=== PATIENT | male | born 1955 | race Caucasian/White ===

== ENCOUNTER 2017-05-27 05:53 | Day surgery (SDC) | payer BC, OTHER ==
[2017-05-27 06:25] LABS: HEMATOCRIT 38.9 % (37.9-51.0); HEMOGLOBIN 13.5 g/dL (13.5-17.0); HGB HCT DIFFERENCE 1.6; MEAN CORPUSCULAR HEMOGLOBIN 34.2 pg (27.0-33.4); MEAN CORPUSCULAR HGB CONC 34.7 g/dL (32.0-36.0); MEAN CORPUSCULAR VOLUME 99 fl (80-97); RED BLOOD COUNT 3.94 10^6/uL (4.35-5.55); RED CELL DISTRIBUTION WIDTH 13.8 % (11.5-14.0); WHITE BLOOD COUNT 5.2 10^3/uL (4.0-10.5)
[2017-05-27 06:34] LABS: PROTHROMBIN TIME 12.5 SEC (11.4-15.4)
[2017-05-27 06:35] LABS: PARTIAL THROMBOPLASTIN TIME 35.1 SEC (23.5-35.8)
[2017-05-27 06:37] LABS: BLOOD UREA NITROGEN 10 mg/dL (7-20); CREATININE RESULT 0.83 mg/dL (0.52-1.25)
[2017-05-27] MEDS ORDERED: MIDAZOLAM 2 MG/2 ML INJ ONE (08:13)
[2017-05-27] MEDS ORDERED: FENTANYL CITRATE INJ/PF 100 MCG/2 ML AMPUL ONE (08:14)
--- NOTE | 2017-05-27 09:35 | RADIOLOGY REPORT (SQ) ---
EXAM DESCRIPTION: CT BIOPSY RENAL; CT NEEDLE PLACEMENT COMPLETED DATE/TIME: 05/27/2017 9:10 am REASON FOR STUDY: PROTEINURIA; PROTEINURIA, RENAL BIOPSY R80.9 PROTEINURIA, UNSPECIFIED R31.29 OT ER MICROSCOPIC HEMATURIA COMPARISON: CT chest 01/08/2014 RADIATION DOSE: Up-to-date CT equipment and radiation dose reduction techniques were employed. CTDIv ol: 4.0 - 19.3 mGy. DLP: 502 mGy-cm. mGy. LIMITATIONS: None. PROCEDURE: Procedure was discussed with the patient and the patient agreed to the procedure. Preliminary CT scanning to localize the biopsy site was performed. A site was marked on the right lo wer pole kidney and time out was performed. Procedure was performed using CT fluoroscopy. Total expo sure time: 5.8 s. IV sedation was administered and physician direction by the registered nurse using 2 milligrams of Ve rsed and 100 micrograms of fentanyl. Physiologic monitoring was provided before, during, and after se dation. The total sedation time was 40 minutes. Documentation face to face time, the performing proceduralist, spent monitoring the patient: 20minute s. After sterile skin prep with ChloraPrep, local lidocaine for skin and deep tissue anesthesia, the rig ht lower pole kidney was localized. A coaxial 18 gauge needle was used to obtain 7 cores of tissue fr om the right lower pole kidney. The biopsy tract was embolized with Gelfoam. All CT scanners at this facility use dose modulation, iterative reconstruction, and/or weight based d osing when appropriate to reduce radiation dose to as low as reasonably achievable (ALARA). [facility]: Dose Right [facility]: CareDose [facility]: Dose Right [facility]: Teradose 4D [facility]: [employer] FINDINGS: There were no immediate complications. Specimen was carried to cytology on sterile saline gauze and submitted to the quality assurance supervisor final for processing. Pathology is pending at the time of dict ation. IMPRESSION: CT GUIDED RIGHT KIDNEY CORTICAL BIOPSY. COMMENT: Patient medication list reviewed:Yes- Quality ID# [id number]:Eligible professional attests to docu menting in the medical record they obtained, updated, or reviewed the patient's current medications.. TECHNICAL DOCUMENTATION: JOB ID: [id number] Quality ID #[id number]: Final reports for procedures using fluoroscopy that document radiation exposure julia bety, or exposure time and number of fluorographic images (if radiation exposure indices are not avail able) Quality ID # [id number]: Final reports with documentation of one or more dose reduction techniques (e.g., Au tomated exposure control, adjustment of the mA and/or kV according to patient size, use of iterative reconstruction technique) 2010 [employer]- All Rights Reserved
--- NOTE | 2017-05-27 09:35 | RADIOLOGY REPORT (SQ) ---
EXAM DESCRIPTION: CT BIOPSY RENAL; CT NEEDLE PLACEMENT COMPLETED DATE/TIME: 05/27/2017 9:10 am REASON FOR STUDY: PROTEINURIA; PROTEINURIA, RENAL BIOPSY R80.9 PROTEINURIA, UNSPECIFIED R31.29 OT ER MICROSCOPIC HEMATURIA COMPARISON: CT chest 01/08/2014 RADIATION DOSE: Up-to-date CT equipment and radiation dose reduction techniques were employed. CTDIv ol: 4.0 - 19.3 mGy. DLP: 502 mGy-cm. mGy. LIMITATIONS: None. PROCEDURE: Procedure was discussed with the patient and the patient agreed to the procedure. Preliminary CT scanning to localize the biopsy site was performed. A site was marked on the right lo wer pole kidney and time out was performed. Procedure was performed using CT fluoroscopy. Total expo sure time: 5.8 s. IV sedation was administered and physician direction by the registered nurse using 2 milligrams of Ve rsed and 100 micrograms of fentanyl. Physiologic monitoring was provided before, during, and after se dation. The total sedation time was 40 minutes. Documentation face to face time, the performing proceduralist, spent monitoring the patient: 20minute s. After sterile skin prep with ChloraPrep, local lidocaine for skin and deep tissue anesthesia, the rig ht lower pole kidney was localized. A coaxial 18 gauge needle was used to obtain 7 cores of tissue fr om the right lower pole kidney. The biopsy tract was embolized with Gelfoam. All CT scanners at this facility use dose modulation, iterative reconstruction, and/or weight based d osing when appropriate to reduce radiation dose to as low as reasonably achievable (ALARA). [facility]: Dose Right [facility]: CareDose [facility]: Dose Right [facility]: Teradose 4D [facility]: [employer] FINDINGS: There were no immediate complications. Specimen was carried to cytology on sterile saline gauze and submitted to the religion instructor for processing. Pathology is pending at the time of dict ation. IMPRESSION: CT GUIDED RIGHT KIDNEY CORTICAL BIOPSY. COMMENT: Patient medication list reviewed:Yes- Quality ID# [id number]:Eligible professional attests to docu menting in the medical record they obtained, updated, or reviewed the patient's current medications.. TECHNICAL DOCUMENTATION: JOB ID: [id number] Quality ID #[id number]: Final reports for procedures using fluoroscopy that document radiation exposure julia bety, or exposure time and number of fluorographic images (if radiation exposure indices are not avail able) Quality ID # [id number]: Final reports with documentation of one or more dose reduction techniques (e.g., Au tomated exposure control, adjustment of the mA and/or kV according to patient size, use of iterative reconstruction technique) 2010 [employer]- All Rights Reserved
[2017-05-27 11:07] VITALS: BP 118/65
== END 2017-05-27 11:07 | disposition home or self-care (01) ==
LOC: RAD 05:53
PROVIDERS: ATTEND Internal Medicine Nephrology
PROC: 0TB33ZX Excision of Right Kidney Pelvis, Percutaneous Approach, Diagnostic (ICD-10-PCS; principal; 2017-05-27)
DX: I12.9 Hypertensive chronic kidney disease with stage 1 through stage 4 chronic kidney disease, or unspecified chronic kidney disease (principal); N18.9 Chronic kidney disease, unspecified; R80.9 Proteinuria, unspecified; R31.29 Other microscopic hematuria
CPT/HCPCS: 36415; 84520; 82565; 85027; 85610; 85730; 88346; 88348 ×2; 88313 ×2; 77012; 50200; J2250; J3010

== ENCOUNTER → 2017-10-13 | Outpatient (CLI) | payer BC, OTHER ==
--- NOTE | 2017-10-14 09:35 | RADIOLOGY REPORT (SQ) ---
EXAM DESCRIPTION: MRI LUMBAR SPINE WITHOUT COMPLETED DATE/TIME: 10/13/2017 7:33 pm REASON FOR STUDY: RADICULOPATHY, LUMBAR REGION M54.5 LOW BACK PAIN COMPARISON: None. TECHNIQUE: Sagittal and Axial imaging includes T1, T2, STIR and gradient echo sequences. Coronal T2/ HASTE imaging. LIMITATIONS: None. FINDINGS: VISUALIZED UPPER ABDOMEN: Limited evaluation. No acute or suspicious findings suggested. SEGMENTATION: No transitional anatomy. The lowest well-developed disc space is labeled L5-S1. ALIGNMENT: Anatomic. VERTEBRAE: Intact. BONE MARROW: Edematous and fatty reactive endplate changes at L4-5 with disc space loss of height. M inimal fatty endplate changes at T12-L1 and L2-3. No marrow signal abnormalities worrisome for occul t malignancy or fracture DISC SIGNAL: Decreased T2 weighted intervertebral disc signal at L2-3 and L5-S1. Decreased T2 weight ed intervertebral disc signal with disc space loss of height at L3-4 and L4-5. POSTERIOR ELEMENTS: Generally intact. No pars defect evident. HARDWARE: None in the spine. CORD AND CONUS: Normal in size and signal intensity. Conus at the T12 level. SOFT TISSUES: No aortic aneurysm seen. No bulky retroperitoneal adenopathy or mass. No paraspinal mas s or fluid. T11-12: Minimal diffuse posterior disc bulging. Minimal facet hypertrophy. No central or foraminal stenosis. T12-L1: No central or foraminal stenosis L1-L2: No central or foraminal stenosis. Very mild bilateral facet hypertrophy. L2-L3: Mild to moderate central canal stenosis results from broad diffuse posterior disc bulge and gabino ny spurring, dorsal epidural fat, and moderate bilateral facet and ligament hypertrophy. This is bes t shown on axial T2 image 12 and sagittal T2 image 8. There is mild bilateral inferior foraminal shantal rowing at L2-3 without exiting L2 nerve root impingement. L3-L4: Mild central canal narrowing results from broad diffuse posterior disc bulge and bony spurring , and moderate bilateral facet and ligament hypertrophy. Mild bilateral inferior foraminal narrowing is present without definite exiting L3 nerve root impingement L4-L5: Mild central canal narrowing results from broad diffuse posterior disc bulge and bony spurring , with moderate bilateral facet and ligament hypertrophy. There is moderate right foraminal narrowin g without definite exiting L4 nerve root impingement. Moderate left foraminal narrowing is present f rom facet and uncovertebral hypertrophy and a 9 to 10 mm synovial cyst protruding off the left L4-5 f acet joint, best shown on coronal image 12, axial image 23, and sagittal image 10. This abuts the un dersurface of the left L4 nerve root in the foramen without definite exiting nerve root impingement. L5-S1: Broad diffuse posterior disc bulge and moderate bilateral facet and ligament hypertrophy. No central stenosis or significant right foraminal narrowing. 8 mm synovial cyst protrudes off the vent ral aspect of the left L5-S1 facet, and abuts the dorsal aspect of the left L5 nerve root in the neur al foramina without definite exiting nerve root impingement. This is best shown on axial T1 image 18 SACRUM: Visualized upper sacrum intact. OTHER: No other significant findings. IMPRESSION: Diffuse degenerative changes as above TECHNICAL DOCUMENTATION: JOB ID: [id number] [employer]- All Rights Reserved
== END ==
LOC: RAD 18:24
PROVIDERS: ATTEND Pain Medicine Interventional Pain Medicine
DX: M54.16 Radiculopathy, lumbar region (principal); M51.36 Other intervertebral disc degeneration, lumbar region
CPT/HCPCS: 72148

== ENCOUNTER 2019-12-21 12:38 | Day surgery (SDC) | payer BC, OTHER ==
[2019-12-18 11:51] LABS: ABSOLUTE BASOPHILS # (AUTO) 0.1 10^3/uL (0.0-0.2); ABSOLUTE EOSINOPHILS # (AUTO) 0.3 10^3/uL (0.0-0.6); ABSOLUTE LYMPHOCYTES (AUTO) 0.8 10^3/uL (0.5-4.7); ABSOLUTE MONOCYTES (AUTO) 0.7 10^3/uL (0.1-1.4); ABSOLUTE NEUT (AUTO) 3.5 10^3/uL (1.7-8.2); BASOPHILS % (AUTO) 1.4 % (0-2); EOSINOPHILS % (AUTO) 5.5 % (0-6); HEMATOCRIT 34.4 % (37.9-51.0); HEMOGLOBIN 11.7 g/dL (13.5-17.0); LYMPHOCYTES % (AUTO) 14.9 % (13-45); MEAN CORPUSCULAR HGB CONC 34.1 g/dL (32.0-36.0); MEAN CORPUSCULAR VOLUME 106 fl (80-97); MONOCYTES % (AUTO) 13.5 % (3-13); PLATELET COUNT 260 10^3/uL (150-450); RED BLOOD COUNT 3.25 10^6/uL (4.35-5.55); SEGMENTED NEUTROPHILS % (AUTO) 64.7 % (42-78); TOTAL CELLS COUNTED % (AUTO) 100 %; WHITE BLOOD COUNT 5.4 10^3/uL (4.0-10.5)
[2019-12-18 11:59] LABS: ANION GAP 11 (5-19); BLOOD UREA NITROGEN 12 mg/dL (7-20); CALCIUM 9.8 mg/dL (8.4-10.2); CARBON DIOXIDE 30 mmol/L (22-30); CHLORIDE 92 mmol/L (98-107); GLUCOSE 78 mg/dL (75-110); POTASSIUM 4.6 mmol/L (3.6-5.0)
--- NOTE | 2019-12-18 18:14 | EKG REPORT ---
SEVERITY:- BORDERLINE ECG - SINUS RHYTHM BORDERLINE T ABNORMALITIES, ANT-LAT LEADS : Confirmed by: An Keller MD 18-Dec-2019 18:13:11
[~2019-12-21 12:38] MED LIST: ACETAMINOPHEN 325 MG TABLET PO PRN; CEFAZOLIN SODIUM 2 GM in DEXTROSE 5%-WATER 100 ML IV PRN; DEXAMETHASONE SOD PHOSPHATE INJ 4 MG/1 ML VIAL ONE; FENTANYL CITRATE INJ/PF 100 MCG/2 ML AMPUL ONE; LACTATED RINGERS 1000 ML IV PRN; LIDOCAINE 0.5% INJ-PF (5 MG/ML) 50 ML SDV SUBCUT PRN; MIDAZOLAM 2 MG/2 ML INJ ONE; ONDANSETRON HCL INJ/PF 4 MG/2 ML SDV ONE; OXYCODONE HCL SR 10 MG TABLET PO PRN; PROPOFOL INJ 200 MG/20 ML VIAL IV ONE
[2019-12-21] MEDS ORDERED: OXYCODONE HCL SR 10 MG TABLET PO ONE (13:31)
[2019-12-21] MEDS ORDERED: ACETAMINOPHEN 325 MG TABLET ONE (13:31)
[2019-12-21] MEDS ORDERED: ALBUTEROL SULFATE 0.083% NEB 2.5 MG/3 ML AMPUL NEB ONE (13:49)
[2019-12-21] MEDS ORDERED: PROPOFOL INJ 200 MG/20 ML VIAL IV ONE ×3 (15:50→16:46)
[2019-12-21] MEDS ORDERED: BUPIVACAINE HCL 0.5%-EPI 1:200000 INJ/PF 30 ML VIAL ONE (16:11)
[2019-12-21] MEDS ORDERED: BUPIVACAINE HCL 0.5 % INJ/PF 30 ML SDV ONE (16:11)
[2019-12-21] MEDS ORDERED: LIDOCAINE 1% INJ-PF (10 MG/ML) 30 ML SDV ONE (16:11)
[2019-12-21] MEDS ORDERED: KETOROLAC TROMETHAMINE INJ/PF 30 MG/1 ML SDV ONE (16:11)
[2019-12-21] MEDS ORDERED: LIDOCAINE 1%/EPINEPHRINE INJ 20 ML VIAL ONE (16:11)
[2019-12-21] MEDS ORDERED: FENTANYL CITRATE INJ/PF 100 MCG/2 ML AMPUL IV PRN ×3 (16:15)
[2019-12-21] MEDS ORDERED: MEPERIDINE HCL/PF INJ 25 MG/1 ML DISP.SYRIN IV PRN (16:15)
[2019-12-21] MEDS ORDERED: ONDANSETRON HCL INJ/PF 4 MG/2 ML SDV IV PRN (16:15)
[2019-12-21] MEDS ORDERED: MORPHINE SULFATE 10 MG/ML INJ IV PRN (16:15)
[2019-12-21] MEDS ORDERED: DIPHENHYDRAMINE HCL 50 MG/ML VIAL IV PRN (16:15)
--- NOTE | 2019-12-21 17:53 | Operative Report ---
Operative Report DATE OF SURGERY: 12/21/19 PREOPERATIVE DIAGNOSIS: Left elbow chronic bursitis POSTOPERATIVE DIAGNOSIS: Left elbow chronic bursitis OPERATION: Resection left elbow bursa SURGEON: TAMI HWANG JR ANESTHESIA: LMAC COMPLICATIONS: None ESTIMATED BLOOD LOSS: Minimal PROCEDURE: The patient was brought to the operating suite and laid lateral on a beanbag. He was provided LMAC anesthesia and was given 2 g of Ancef. The left upper extremity was draped over a paint roller type positioner. After adequate anesthesia the left upper extremity was prepped and draped in standard sterile fashion. A timeout was performed and the skin was marked. Local anesthetic was provided. An incision was made deviating slightly radially over the enlarged bursal sac. Following this the layer between the dermis and the bursal sac was carefully developed and followed ulnarly. This plane was worked in all directions until we achieved complete resection of the bursa. It was full of serous fluid. The bursa was sent for pathology. The wound was copiously irrigated. We then took a barbed 3-0 Monocryl suture and began carefully and pr ogressively in running fashion sewing down the space between the skin and the underlying fascia. This was done [id number] until the space was entirely closed. Following this the Monocryl was utilized to close the subcutaneous tissue in a running fashion. We then utilized a running locked external stitch in the skin with a 3-0 nylon suture. Further local anesthetic was provided. We then applied a compressive dressing to the wound. Patient was then awakened from anesthesia and transferred to PACU in stable condition
[2019-12-21 18:54] VITALS: BP 157/90
== END 2019-12-21 18:44 | disposition home or self-care (01) ==
LOC: OROUT 12:38
PROVIDERS: ATTEND Orthopaedic Surgery
DX: M70.22 Olecranon bursitis, left elbow (principal); N08 Glomerular disorders in diseases classified elsewhere; J45.909 Unspecified asthma, uncomplicated; I12.9 Hypertensive chronic kidney disease with stage 1 through stage 4 chronic kidney disease, or unspecified chronic kidney disease; D63.1 Anemia in chronic kidney disease; N18.1 Chronic kidney disease, stage 1; Z87.891 Personal history of nicotine dependence; Z79.899 Other long term (current) drug therapy; Z79.51 Long term (current) use of inhaled steroids; Z88.8 Allergy status to other drugs, medicaments and biological substances
CPT/HCPCS: 93005; 36415 ×2; 84132; 85025; 80048; 88304 ×2; 93010; 01710; 24105; J2250; J3490 ×2; J0690; J1100; J3010; J1885; J2405; J7060; J2704; 1710

== ENCOUNTER 2020-04-25 05:30 | Inpatient (IN) | payer OTHER ==
[2020-04-23 11:19] LABS: HEMATOCRIT 34.2 % (37.9-51.0); HEMOGLOBIN 11.7 g/dL (13.5-17.0); MEAN CORPUSCULAR HEMOGLOBIN 34.6 pg (27.0-33.4); MEAN CORPUSCULAR HGB CONC 34.2 g/dL (32.0-36.0); MEAN CORPUSCULAR VOLUME 101 fl (80-97); PLATELET COUNT 224 10^3/uL (150-450); RED BLOOD COUNT 3.38 10^6/uL (4.35-5.55); RED CELL DISTRIBUTION WIDTH 14.3 % (11.5-14.0); WHITE BLOOD COUNT 4.8 10^3/uL (4.0-10.5)
[2020-04-23 11:39] LABS: ANION GAP 13 (5-19); BLOOD UREA NITROGEN 10 mg/dL (7-20); CALCIUM 10.1 mg/dL (8.4-10.2); CARBON DIOXIDE 26 mmol/L (22-30); CHLORIDE 89 mmol/L (98-107); GLUCOSE 104 mg/dL (75-110); POTASSIUM 4.6 mmol/L (3.6-5.0)
--- NOTE | 2020-04-23 14:43 | EKG REPORT ---
SEVERITY:- NORMAL ECG - SINUS RHYTHM : Confirmed by: An Keller MD 23-Apr-2020 14:43:02
[~2020-04-25 05:30] MED LIST changes: +CEFAZOLIN 2 GM/D5W RTU 2 GM/50 ML RTUPB IV PRN; -CEFAZOLIN SODIUM 2 GM in DEXTROSE 5%-WATER 100 ML IV PRN; +CELECOXIB 200 MG CAPSULE PO PRN; -DEXAMETHASONE SOD PHOSPHATE INJ 4 MG/1 ML VIAL ONE; -FENTANYL CITRATE INJ/PF 100 MCG/2 ML AMPUL ONE; +GABAPENTIN 100 MG CAPSULE PO PRN; -MIDAZOLAM 2 MG/2 ML INJ ONE; +ONDANSETRON HCL INJ/PF 4 MG/2 ML SDV IV PRN; -ONDANSETRON HCL INJ/PF 4 MG/2 ML SDV ONE; -PROPOFOL INJ 200 MG/20 ML VIAL IV ONE; +SCOPOLAMINE HYDROBROMIDE 1.5 MG PATCH.TD72 TD PRN; +TRAMADOL HCL 50 MG TABLET PO PRN; +TRANEXAMIC ACID INJ/PF 1,000 MG/10 ML SDV IV PRN; +VANCOMYCIN HCL 1,000 MG in DEXTROSE 5%-WATER 250 ML IV PRN
[2020-04-25] MEDS ORDERED: TRAMADOL HCL 50 MG TABLET ONE (06:31)
[2020-04-25] MEDS ORDERED: OXYCODONE HCL SR 10 MG TABLET PO ONE (06:31)
[2020-04-25] MEDS ORDERED: CEFAZOLIN 2 GM/D5W RTU 2 GM/50 ML RTUPB IV ONE (06:31)
[2020-04-25] MEDS ORDERED: GABAPENTIN 100 MG CAPSULE ONE (06:31)
[2020-04-25] MEDS ORDERED: CELECOXIB 200 MG CAPSULE ONE (06:31)
[2020-04-25] MEDS ORDERED: SCOPOLAMINE HYDROBROMIDE 1.5 MG PATCH.TD72 ONE (06:31)
[2020-04-25] MEDS ORDERED: ONDANSETRON HCL INJ/PF 4 MG/2 ML SDV ONE ×2 (06:31→07:14)
[2020-04-25] MEDS ORDERED: ACETAMINOPHEN 325 MG TABLET ONE (06:34)
[2020-04-25] MEDS ORDERED: BUPIVACAINE HCL 0.5%-EPI 1:200000 INJ/PF 30 ML VIAL ONE (07:07)
[2020-04-25] MEDS ORDERED: LIDOCAINE 1% INJ-PF (10 MG/ML) 30 ML SDV ONE (07:13)
[2020-04-25] MEDS ORDERED: BUPIVACAINE HCL 0.25 % INJ/PF (2.5 MG/1 ML) 30 ML VIAL ONE (07:13)
[2020-04-25] MEDS ORDERED: VANCOMYCIN HCL INJ 1000 MG VIAL ONE (07:13)
[2020-04-25] MEDS ORDERED: KETOROLAC TROMETHAMINE INJ/PF 30 MG/1 ML SDV ONE (07:14)
[2020-04-25] MEDS ORDERED: DEXAMETHASONE SOD PHOSPHATE INJ 4 MG/1 ML VIAL ONE (07:14)
[2020-04-25] MEDS ORDERED: FENTANYL CITRATE INJ/PF 100 MCG/2 ML AMPUL ONE (07:14)
[2020-04-25] MEDS ORDERED: MIDAZOLAM 2 MG/2 ML INJ ONE (07:14)
[2020-04-25] MEDS ORDERED: TRANEXAMIC ACID INJ/PF 1,000 MG/10 ML SDV ONE (07:14)
[2020-04-25] MEDS ORDERED: PROPOFOL INJ 200 MG/20 ML VIAL IV ONE (07:15)
[2020-04-25] MEDS ORDERED: MORPHINE SULFATE 10 MG/ML INJ ONE (07:15)
[2020-04-25] MEDS ORDERED: EPINEPHRINE INJ/PF 1 MG/1 ML AMPULE ONE (07:39)
[2020-04-25] MEDS ORDERED: MORPHINE SULFATE 10 MG/ML INJ IV PRN (08:46)
[2020-04-25] MEDS ORDERED: FENTANYL CITRATE INJ/PF 100 MCG/2 ML AMPUL IV PRN ×3 (08:46)
[2020-04-25] MEDS ORDERED: PROMETHAZINE HCL INJ 25 MG/1 ML VIAL IV PRN ×2 (08:46)
[2020-04-25] MEDS ORDERED: DIPHENHYDRAMINE HCL 50 MG/ML VIAL IV PRN (08:46)
[2020-04-25] MEDS: FENTANYL CITRATE INJ/PF 100 MCG/2 ML AMPUL ONE ×2 (10:00→10:10)
--- NOTE | 2020-04-25 10:14 | Operative Report ---
Operative Report DATE OF SURGERY: 04/25/20 PREOPERATIVE DIAGNOSIS: Left knee primary osteoarthritis, end-stage POSTOPERATIVE DIAGNOSIS: Left knee primary osteoarthritis, end-stage OPERATION: Left total knee arthroplasty SURGEON: EMIGDIO HWANG JR ANESTHESIA: GA COMPLICATIONS: None ESTIMATED BLOOD LOSS: 10 cc PROCEDURE: Components: Derrek triathlon total knee: #5 PS femur, 5 x 9 tibia, and a 35 asymmetric patella OPERATIVE PROCEDURE: Patient was brought to the operating room and spinal anesthesia was administered. After proper anesthesia was obtained, patient was positioned, padded, prepped, and draped in the usual sterile fashion on the operating room table. 2 grams of Ancef and 1 g of vancomycin were given. Appropriate time out was performed. Anterior incision and medial-parapatella approach was performed. Severe degenerative arthritis was noted. Osteophytes were removed from the femur and tibia, and the remainder of the ACL and PCL were removed. The proximal tibia was then prepared and cut perpendicular to the tibial shaft axis and measured to a 5 tibia. The distal femur was drilled, the canal was irrigated and the distal femoral guide was placed. The distal femur was cut 12 mm to 5 degrees of varus. An extension 10 block was placed in the gap was found to be inadequate. We then returned to the tibia and took 2 more millimeters off of the tibia. Recheck with a gap block found this to have adequate extension. The tensor was placed in extension and the extension gap was balanced with releases until the goniometer on the tensor measured to 0. This required a IT band release to the level of the tibial plateau. The tensor was placed in flexion and the femur was sized to 5. Drill holes were placed to the appropriate femoral rotation. The 4 and 1 block was placed and the flexion gap was then re-checked with the tensor adapter and found to be appropriate. Anterior-posterior and chamfer cuts were made. Posterior osteophytes were removed. The femoral trial was then placed, and the notch was cut. The combination of the tibial baseplate and the 9 mm polyethylene liner were then placed and the knee was taken through a range of motion with the trials in. This had excellent balance in extension and flexion as well as patellar tracking. The patella AP aspect was measured to 24 mm and t he patella was cut parallel to the anterior patella surface. A 32 mm button was placed medially and superiorly as possible and the patella-button construct again measured 24 mm. This was again taken through a range of motion and found to have excellent balance, stability and ease of full motion. The rotation of the tibial baseplate was marked, the tibial was anteriorly subluxed and the tibial component was pinned and drilled and punched. All the trials were then removed and the wound was copiously irrigated with sterile saline followed by a Betadine soak. After pulsatile irrigation of the maría elena and soft tissue surfaces, the maría elena surfaces were cleaned and dried, and cementation of the femur, tibia, and patella was performed. All excess cement was thoroughly removed. The knee was placed in slight flexion until cement was hard. Periarticular injection with Lidocaine, Marcaine and Toradol was performed. The knee was irrigated copiously. A gram of Vancomycin was placed intra-articularly. The extensor mechanism was closed with 0 vicryl tacking sutures and number 2 Stratofix. The subcutaneous tissue was closed with 2-0 monocryl and the skin closed with 3-0 running monocryl. A silver dressing was applied. All needle sponge and instrument counts were correct. Patient was awakened from sedation anesthesia and taken to recovery room in good condition. Emigdio Hwang DO
[2020-04-25] MEDS ORDERED: (PENDING PHARMACY ID) (Albuterol Sulfate 2 PUFF) IH PRN (10:15)
[2020-04-25] MEDS ORDERED: ONDANSETRON 4 MG TAB.RAPDIS PO PRN ×2 (10:15→10:22)
[2020-04-25] MEDS ORDERED: TRAMADOL HCL 50 MG TABLET PO PRN (10:16)
[2020-04-25] MEDS ORDERED: OXYCODONE HCL IR 5 MG TABLET PO PRN (10:16)
[2020-04-25] MEDS ORDERED: PANTOPRAZOLE SODIUM 20 MG TABLET.DR PO PRN (10:20)
[2020-04-25] MEDS ORDERED: DIPHENHYDRAMINE HCL 25 MG CAPSULE PO PRN (10:20)
[2020-04-25] MEDS: MORPHINE SULFATE 10 MG/ML INJ ONE ×4 (10:20→10:50)
[2020-04-25] MEDS ORDERED: DOCUSATE SODIUM 100 MG CAPSULE PO PRN (10:21)
[2020-04-25] MEDS ORDERED: ZOLPIDEM TARTRATE 5 MG TABLET PO PRN (10:21)
[2020-04-25] MEDS ORDERED: NORMAL SALINE 1000 ML 1,000 ML IV PRN (10:30)
[2020-04-25] MEDS ORDERED: ACETAMINOPHEN 1,000 MG/100 ML RTUPB IV ONE (10:31)
--- NOTE | 2020-04-25 11:03 | RADIOLOGY REPORT (SQ) ---
EXAM DESCRIPTION: KNEE LEFT 2 VIEWS IMAGES COMPLETED DATE/TIME: 04/25/2020 10:35 am REASON FOR STUDY: POST OP M17.12 UNILATERAL PRIMARY OSTEOARTHRITIS, LEFT KNEE COMPARISON: 12/27/2019 NUMBER OF VIEWS: Two views. TECHNIQUE: AP and lateral radiographic images acquired of the left knee. LIMITATIONS: None. FINDINGS: MINERALIZATION: Normal. BONES: The patient is status post total knee arthroplasty. No osseous injury. JOINT: Gas and fluid are seen within the joint space. SOFT TISSUES: Subcutaneous gas is seen anteriorly. Atherosclerotic vascular calcifications are demon strated. OTHER: No other significant finding. IMPRESSION: Status post total knee arthroplasty. Intraarticular and subcutaneous gas are not an une xpected finding in the immediate postoperative setting. No evidence of osseous injury. TECHNICAL DOCUMENTATION: JOB ID: [id number] 2010 [employer]- All Rights Reserved Reading location - IP/workstation name: [email or web address]
[2020-04-25] MEDS ORDERED: IBUPROFEN 800 MG in NORMAL SALINE 250 ML IV ONE (11:15)
[2020-04-25] MEDS ORDERED: HYDRALAZINE HCL INJ/PF 20 MG/1 ML SDV ONE (12:21)
[2020-04-25] MEDS ORDERED: HYDRALAZINE HCL INJ/PF 20 MG/1 ML SDV IV PRN (12:34)
[2020-04-25] MEDS ORDERED: DEXTROSE 40% GEL 15 GM TUBE PO PRN ×2 (12:35)
[2020-04-25] MEDS ORDERED: GLUCAGON,HUMAN RECOMB 1 MG INJ IM PRN (12:35)
[2020-04-25] MEDS ORDERED: DEXTROSE 50%-WATER 25 GM/50 ML DISP.SYRIN IV PRN ×2 (12:35)
[2020-04-25] MEDS ORDERED: PHENYLEPHRINE HCL INJ/PF 10 MG/1 ML SDV ONE (12:41)
[2020-04-25] MEDS ORDERED: SUCCINYLCHOLINE CHLORIDE INJ 200 MG/10 ML VIAL ONE (12:41)
[2020-04-25] MEDS ORDERED: ALBUTEROL SULFATE HFA (90 MCG/PUFF) 200 PUFF/8.5 GM MDI IH PRN (12:49)
[2020-04-25] MEDS ORDERED: HYDRALAZINE HCL INJ/PF 20 MG/1 ML SDV IV ONE (13:00)
[2020-04-25] MEDS: OXYCODONE HCL IR 5 MG TABLET PO PRN (13:26)
[2020-04-25 13:59] LABS: HEMATOCRIT 32.1 % (37.9-51.0); HEMOGLOBIN 11.3 g/dL (13.5-17.0); MEAN CORPUSCULAR HEMOGLOBIN 35.1 pg (27.0-33.4); MEAN CORPUSCULAR HGB CONC 35.2 g/dL (32.0-36.0); MEAN CORPUSCULAR VOLUME 100 fl (80-97); PLATELET COUNT 258 10^3/uL (150-450); RED BLOOD COUNT 3.23 10^6/uL (4.35-5.55); RED CELL DISTRIBUTION WIDTH 14.4 % (11.5-14.0); WHITE BLOOD COUNT 5.1 10^3/uL (4.0-10.5)
[2020-04-25 14:38] LABS: ABSOLUTE LYMPHOCYTES# (MANUAL) 0.2 10^3/uL (0.5-4.7); ABSOLUTE MONOCYTES # (MANUAL) 0.2 10^3/uL (0.1-1.4); BAND NEUTROPHILS % (MANUAL) 1 % (3-5); BASOPHILS % (MANUAL) 0 % (0-2); EOSINOPHILS % (MANUAL) 0 % (0-6); LYMPHOCYTES % (MANUAL) 4 % (13-45); MONOCYTES % (MANUAL) 3 % (3-13); SEGMENTED NEUTROPHILS % (MAN) 92 % (42-78); TOTAL CELLS COUNTED 100
[2020-04-25 14:41] LABS: POLYCHROMASIA SLIGHT
[2020-04-25 14:42] LABS: ANISOCYTOSIS SLIGHT; BURR CELLS 1+; OVALOCYTES SLIGHT; PLATELET COMMENT ADEQUATE; POIKILOCYTOSIS 1+
[2020-04-25] MEDS: MORPHINE SULFATE 10 MG/ML INJ IV PRN ×2 (14:55→17:13)
[2020-04-25] MEDS: CEFAZOLIN SODIUM 2 GM in DEXTROSE 5%-WATER 100 ML IV SCH ×2 (14:58→21:43)
[2020-04-25 15:19] LABS: ALBUMIN 3.6 g/dL (3.5-5.0); ALKALINE PHOSPHATASE 157 U/L (38-126); ANION GAP 13 (5-19); ASPARTATE AMINO TRANSFERASE 388 U/L (17-59); BILIRUBIN,DIRECT 0.5 mg/dL (0.0-0.4); BILIRUBIN,TOTAL 0.9 mg/dL (0.2-1.3); BLOOD UREA NITROGEN 9 mg/dL (7-20); CALCIUM 9.3 mg/dL (8.4-10.2); CARBON DIOXIDE 23 mmol/L (22-30); CHLORIDE 90 mmol/L (98-107); GLUCOSE 139 mg/dL (75-110); POTASSIUM 4.8 mmol/L (3.6-5.0); TOTAL PROTEIN 6.3 g/dL (6.3-8.2)
--- NOTE | 2020-04-25 16:18 | PDOC CONSULTATION ---
Consultation Consult Date: 04/25/20 Attending physician:: Dr. Lemus Provider Consulted: ROBIN DANIELSON Consult reason:: Hypertension History of Present Illness Admission Date/PCP: [place] DO Patient complains of: Admitted for a left knee replacement History of Present Illness: STELLA FERRARI is a 64 year old male had a left knee arthroplasty for primary osteoarthritis end-stage. Medical consult was called for management of uncon trolled hypertension. 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 Past Medical History Cardiac Medical History: Reports: Hypertension Denies: Myocardial Infarction Pulmonary Medical History: Reports: Asthma, Bronchitis, Chronic Obstructive Pulmonary Disease (COPD) - BORDERLINE, Pneumonia Denies: Sleep Apnea Neurological Medical History: Denies: Seizures Musculoskeltal Medical History: Denies: Arthritis Hematology: Reports: Anemia Past Surgical History Past Surgical History: Reports: Cholecystectomy, Colostomy, Other - Partial colon resection for diverticular disease with colostomy bag followe Social History Information Source: Patient Smoking Status: Former Smoker Electronic Cigarette use?: No Frequency of Alcohol Use: Heavy Hx Recreational Drug Use: No Hx Prescription Drug Abuse: No - Advance Directive Resuscitation Status: Full Code Family History Parental Family History Reviewed: Yes - Family history of hypertension Children Family History Reviewed: Yes Sibling(s) Family History Reviewed.: Yes Medication/Allergy Home Medications: Cetirizine HCl [Zyrtec 10 mg Tablet] 1 tab PO DAILY 01/09/14 Carvedilol [Coreg] 3.125 mg PO BID 12/14/19 Magnesium Oxide 400 mg PO DAILY 12/14/19 Metoclopramide HCl [Reglan] 10 mg PO QAM 12/14/19 Ondansetron [Zofran Odt 4 mg Tablet] 1 - 2 tab PO Q4HP PRN 12/14/19 Albuterol Sulfate [Proair HFA Inhalation Aerosol 8.5 gm MDI] 2 puff IH PRN PRN 12/21/19 Montelukast Sodium [Singulair 10 mg Tablet] 10 mg PO DAILY 12/21/19 Tiotropium [place] [Spiriva Handihaler 5 Cap/Kit (18 Mcg/Cap)] 2 puff IH DAILY 12/21/19 Allergies/Adverse Reactions: lisinopril [Lisinopril] Allergy (Severe, Verified 04/25/20 05:37) sildenafil [From Viagra] Allergy (Intermediate, Verified 04/25/20 05:37) testosterone [From Depo-Testosterone] Allergy (Verified 04/25/20 05:37) SILK TAPE Allergy (Uncoded 04/25/20 05:37) Review of Systems Constitutional: ABSENT: fatigue, weakness Eyes: ABSENT: visual disturbances Ears: ABSENT: hearing changes Nose, Mouth, and Throat: ABSENT: sore throat Cardiovascular: ABSENT: palpitations Respiratory: ABSENT: hemoptysis Gastrointestinal: ABSENT: constipation, heartburn, hematemesis Genitourinary: ABSENT: dysuria Musculoskeletal: PRESENT: other - Admitted for left knee hemiarthroplasty Neurological: ABSENT: as per HPI Psychiatric: ABSENT: anxiety, depression, homidical ideation, suicidal ideation Physical Exam Vital Signs: Temp Pulse Resp BP Pulse Ox 98 F 85 16 158/98 H 98 04/25/20 13:30 04/25/20 13:30 04/25/20 13:30 04/25/20 13:30 04/25/20 13:30 Intake & Output 04/24/20 04/25/20 04/26/20 06:59 06:59 06:59 Intake Total 0 1750 Output Total 50 Balance 0 1700 Weight 83.91 kg 83.91 kg 88.9 kg General appearance: PRESENT: no acute distress, cooperative, well-developed Head exam: PRESENT: atraumatic Eye exam: PRESENT: PERRLA Ear exam: PRESENT: normal external ear exam Mouth exam: PRESENT: neck supple Neck exam: ABSENT: carotid bruit, JVD, lymphadenopathy, thyromegaly Respiratory exam: PRESENT: decreased breath sounds Cardiovascular exam: PRESENT: RRR. ABSENT: diastolic murmur, rubs, systolic murmur GI/Abdominal exam: PRESENT: normal bowel sounds, soft. ABSENT: distended, guarding, mass, organolmegaly, rebound, tenderness Rectal exam: PRESENT: deferred Extremities exam: PRESENT: full ROM. ABSENT: calf tenderness, clubbing, pedal edema Neurological exam: PRESENT: alert, awake, oriented to person, oriented to place, oriented to time, oriented to situation, CN II-XII grossly intact. ABSENT: motor sensory deficit Psychiatric exam: PRESENT: appropriate affect, normal mood. ABSENT: homicidal ideation, suicidal ideation Results Laboratory Results: 04/25/20 13:20 04/25/20 14:23 04/25/20 04/25/20 04/25/20 13:20 13:20 14:23 WBC 5.1 RBC 3.23 L Hgb 11.3 L Hct 32.1 L MCV 100 H MCH 35.1 H MCHC 35.2 RDW 14.4 H Plt Count 258 Seg Neutrophils % Not Reportable Sodium Cancelled 125.7 L Potassium Cancelled 4.8 Chloride Cancelled 90 L Carbon Dioxide Cancelled 23 Anion Gap Cancelled 13 BUN Cancelled 9 Creatinine Cancelled 0.86 Est GFR ( Amer) Cancelled > 60 Est GFR (Non-Af Amer) Cancelled Glucose Cancelled 139 H Calcium Cancelled 9.3 Magnesium Cancelled 1.3 L Total Bilirubin Cancelled 0.9 AST Cancelled 388 H Alkaline Phosphatase Cancelled 157 H Total Protein Cancelled 6.3 Albumin Cancelled 3.6 Impressions: Knee X-Ray 04/25/20 00:00 IMPRESSION: Status post total knee arthroplasty. Intraarticular and subcutaneous gas are not an unexpected finding in the immediate postoperative setting. No evidence of osseous injury. Assessment and Plan - Diagnosis (1) HTN (hypertension) Is this a current diagnosis for this admission?: Yes Plan: 04/25/2020-blood pressure this morning with systolic of more than 180. Started on IV hydralazine 10 mg every 6 hours as needed, restarted losartan. To watch blood pressures closely. (2) Alcohol abuse Is this a current diagnosis for this admission?: Yes Plan: 04/25/2020-patient given history of heavy alcohol use close to drinking 1 gallon of rum on a daily basis. Started on IV Ativan 2 mg every 4 hours as needed for agitation. To watch for the DTs. To start him on IV thiamine and folic acid. (3) Fibrillary glomerulonephritis Is this a current diagnosis for this admission?: No Plan: 04/25/2020-patient has a fibrillary GN follows with Dr. Briggs in [place]. No problems with urination. (4) Hyponatremia Is this a current diagnosis for this admission?: Yes Plan: 04/25/2020-hyponatremia with serum sodium of 125.7. Slightly chronic hyponatremia secondary to heavy alcohol use.
[2020-04-25] MEDS: GABAPENTIN 100 MG CAPSULE PO SCH (17:22)
[2020-04-25] MEDS: PANTOPRAZOLE SODIUM 40 MG TABLET.DR PO SCH (17:22)
[2020-04-25] MEDS: KETOROLAC TROMETHAMINE INJ/PF 30 MG/1 ML SDV IV SCH (21:39)
[2020-04-25] MEDS: CARVEDILOL 3.125 MG TABLET PO SCH (21:40)
[2020-04-25] MEDS: ACETAMINOPHEN 325 MG TABLET PO SCH (21:40)
[2020-04-26] MEDS: OXYCODONE HCL IR 5 MG TABLET PO PRN (02:05)
[2020-04-26] MEDS: LORAZEPAM INJ 2 MG/1 ML VIAL IV PRN ×3 (03:15→17:38)
[2020-04-26] MEDS ORDERED: DIAZEPAM INJ 10 MG/2 ML DISP.SYRIN ONE (05:12)
[2020-04-26] MEDS ORDERED: DIAZEPAM INJ 10 MG/2 ML DISP.SYRIN IV ONE (05:15)
[2020-04-26 06:08] LABS: ABSOLUTE BASOPHILS # (AUTO) 0.1 10^3/uL (0.0-0.2); ABSOLUTE LYMPHOCYTES (AUTO) 0.4 10^3/uL (0.5-4.7); ABSOLUTE MONOCYTES (AUTO) 0.6 10^3/uL (0.1-1.4); ABSOLUTE NEUT (AUTO) 3.9 10^3/uL (1.7-8.2); BASOPHILS % (AUTO) 1.2 % (0-2); EOSINOPHILS % (AUTO) 0.4 % (0-6); HEMATOCRIT 23.3 % (37.9-51.0); LYMPHOCYTES % (AUTO) 7.8 % (13-45); MEAN CORPUSCULAR HGB CONC 34.9 g/dL (32.0-36.0); MEAN CORPUSCULAR VOLUME 100 fl (80-97); MONOCYTES % (AUTO) 12.8 % (3-13); PLATELET COUNT 181 10^3/uL (150-450); RED BLOOD COUNT 2.32 10^6/uL (4.35-5.55); RED CELL DISTRIBUTION WIDTH 14.1 % (11.5-14.0); SEGMENTED NEUTROPHILS % (AUTO) 77.8 % (42-78); TOTAL CELLS COUNTED % (AUTO) 100 %; WHITE BLOOD COUNT 5.1 10^3/uL (4.0-10.5)
[2020-04-26 06:11] LABS: HEMOGLOBIN 8.1 g/dL (13.5-17.0)
[2020-04-26 06:23] LABS: ALKALINE PHOSPHATASE 104 U/L (38-126); ASPARTATE AMINO TRANSFERASE 136 U/L (17-59); BILIRUBIN,DIRECT 0.1 mg/dL (0.0-0.4); BILIRUBIN,TOTAL 0.6 mg/dL (0.2-1.3); BLOOD UREA NITROGEN 17 mg/dL (7-20); CALCIUM 8.5 mg/dL (8.4-10.2); CARBON DIOXIDE 24 mmol/L (22-30); CHLORIDE 86 mmol/L (98-107); GLUCOSE 115 mg/dL (75-110); POTASSIUM 4.4 mmol/L (3.6-5.0); TOTAL PROTEIN 5.5 g/dL (6.3-8.2)
[2020-04-26 06:24] LABS: ANION GAP 9 (5-19)
[2020-04-26] MEDS: KETOROLAC TROMETHAMINE INJ/PF 30 MG/1 ML SDV IV SCH ×3 (07:04→21:35)
[2020-04-26] MEDS: ACETAMINOPHEN 325 MG TABLET PO SCH ×3 (07:05→22:13)
[2020-04-26] MEDS: PANTOPRAZOLE SODIUM 40 MG TABLET.DR PO SCH ×2 (07:05→17:18)
[2020-04-26] MEDS ORDERED: SODIUM CHLORIDE 3% 500 ML IV ONE ×3 (07:12→12:56)
--- NOTE | 2020-04-26 07:35 | PDOC PROGRESS REPORT ---
Subjective Progress Note for:: 04/26/20 Subjective:: Patient reports pain controlled this morning. He is moderately delirious. He is able to respond appropriately at times and follow directions with much redirection. Reports a cat is on his bed. The nursing staff says that overnight he had some delirium and was not following instructions. The patient reports a fall however the nursing staff ensures me that he never was able to get up by himself and has not fallen at all. Hospitalist service was contacted overnight for further evaluation and benzodiazepines were provided without substantial improvement. Reason For Visit: M17.12 UNILATERAL PRIMARY OSTEOARTHRITIS, LEFT KNE Physical Exam Vital Signs: Temp Pulse Resp BP Pulse Ox 98.7 F 110 H 17 134/76 H 100 04/26/20 04:15 04/26/20 04:15 04/26/20 04:15 04/26/20 04:15 04/26/20 04:15 Intake & Output 04/25/20 04/26/20 04/27/20 06:59 06:59 06:59 Intake Total 0 4008 Output Total 750 Balance 0 3258 Weight 83.91 kg 91 kg Physical Exam: General appearance: PRESENT: no acute distress, cooperative, well-nourished, confusion Head exam: PRESENT: atraumatic, normocephalic Eye exam: PRESENT: EOMI Ear exam: PRESENT: normal external ear exam Mouth exam: PRESENT: neck supple Neck exam: ABSENT: tracheal deviation Respiratory exam: PRESENT: symmetrical, unlabored. ABSENT: accessory muscle use, wheezes Pulses: PRESENT: normal radial pulses, normal dorsalis pedis pulse Vascular exam: PRESENT: normal capillary refill GI/Abdominal exam: ABSENT: distended, firm Extremities exam: PRESENT: full ROM of bilateral shoulders, elbows wrists, knees, hips and ankles without pain Musculoskeletal exam: PRESENT: full ROM, normal inspection of all 4 extremities aside from that noted below. Neurological exam: PRESENT: alert, awake, oriented to person, oriented to place, oriented to time Psychiatric exam: PRESENT: appropriate affect he is confused this morning and hallucinating. ABSENT: agitated Skin exam: PRESENT: intact. ABSENT: dry All as above aside from that noted in the HPI and the following: Left lower extremity -Pulses 2+ distally -Compartments soft -Sensation grossly intact to L3-4-5 S1 -Motor grossly intact to EHL TA gastroc and quad -Wound is clean dry and intact Results Laboratory Results: 04/26/20 05:30 04/26/20 05:30 04/25/20 04/25/20 04/25/20 13:20 13:20 14:23 WBC 5.1 RBC 3.23 L Hgb 11.3 L Hct 32.1 L MCV 100 H MCH 35.1 H MCHC 35.2 RDW 14.4 H Plt Count 258 Seg Neutrophils % Not Reportable Sodium Cancelled 125.7 L Potassium Cancelled 4.8 Chloride Cancelled 90 L Carbon Dioxide Cancelled 23 Anion Gap Cancelled 13 BUN Cancelled 9 Creatinine Cancelled 0.86 Est GFR ( Amer) Cancelled > 60 Est GFR (Non-Af Amer) Cancelled Glucose Cancelled 139 H Calcium Cancelled 9.3 Magnesium Cancelled 1.3 L Total Bilirubin Cancelled 0.9 AST Cancelled 388 H Alkaline Phosphatase Cancelled 157 H Total Protein Cancelled 6.3 Albumin Cancelled 3.6 04/26/20 04/26/20 05:30 05:30 WBC 5.1 RBC 2.32 L Hgb 8.1 L D Hct 23.3 L MCV 100 H MCH 35.0 H MCHC 34.9 RDW 14.1 H Plt Count 181 Seg Neutrophils % 77.8 Sodium 119.2 L* Potassium 4.4 Chloride 86 L Carbon Dioxide 24 Anion Gap 9 BUN 17 Creatinine 1.10 Est GFR ( Amer) > 60 Est GFR (Non-Af Amer) Glucose 115 H Calcium 8.5 Magnesium 1.2 L* Total Bilirubin 0.6 AST 136 H Alkaline Phosphatase 104 Total Protein 5.5 L Albumin 3.0 L Impressions: Knee X-Ray 04/25/20 00:00 IMPRESSION: Status post total knee arthroplasty. Intraarticular and subcutaneous gas are not an unexpected finding in the immediate postoperative setting. No evidence of osseous injury. Assessment & Plan - Diagnosis (1) Status post left knee replacement Is this a current diagnosis for this admission?: Yes Plan: Patient is status post left knee replacement postop day 1 - 2 doses of Ancef postoperatively q 8 hours to complete 24 hours perioperatively -Weightbearing as tolerated, fall precautions, encourage out of bed PATI for ADL training - PT/OT - Keep knee extended in bed, rolled towel under the ankle to obtain full extension -aspirin 325 daily for DVT prophylaxis for 6 weeks -multimodal pain management to avoid excessive narcotics, including gabapentin, tramadol, Toradol, acetaminophen. -Dressing should not be removed for 7 to 10 days until seen in the office -May shower with the dressing intact, if it starts to come off she should not get the incision wet. (2) Hyponatremia Is this a current diagnosis for this admission?: Yes Plan: At this time the school psychology professor is recommending 3% normal saline. This is not able to be given on the general floor and may need transfer to ICU in order to give. -Follow specialist recommendations, I would like to be kept in touch on his status. Thank you (3) Alcohol abuse Is this a current diagnosis for this admission?: Yes Plan: -Valium provided last night did not affect him substantially. -Upon further questioning the patient and his it is come to our attention that the patient has consumed over 1 gallons of hard liquor in the last 2 days prior to surgery. The patient would not reveal this to us but his did against his instruction. -Discussed with the hospitalist to is aware and on top of the situation. May require Precedex -Plan includes beer 4 times daily - Time Time Spent with patient: 15-24 minutes
[2020-04-26] MEDS ORDERED: PHARMACY COMMUNICATION ORDER MC NR (07:45)
[2020-04-26] MEDS ORDERED: NORMAL SALINE 1000 ML 1,000 ML with POTASSIUM CHLORIDE 20 MEQ, MAGNESIUM SULFATE 8 MEQ,... IV ONE ×5 (08:00)
--- NOTE | 2020-04-26 08:04 | PDOC PROGRESS REPORT ---
Subjective Progress Note for:: 04/26/20 Subjective:: 64 year old male had a left knee arthroplasty for primary osteoarthritis end- stage. Medical consult was called for management of uncontrolled hypertension. 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 04/26/2020-change in mental status noticed last night by the night staff. Patient is confused agitated hallucinating he was given Ativan without any success given 10 mg of Valium 1 dose. This morning labs come back serum sodium of 119 serum magnesium of 1.2. To give 4 g of IV magnesium. On examination patient is confused and unable to maintain proper communication. This is a significant change compared to my examination yesterday. Discussed the case with Dr. Edgardo Reynoso he requested to give 50 mL of 3% hypertonic saline over. Of 1 hour and recheck the serum sodium levels. Spoke to the nursing coding clerks supervisor about moving the patient to [facility] but she told me that patient needs to go to the unit to give hypertonic saline. Patient is also a very heavy alcohol user drinks hard liquor on a daily basis so patient may need a Precedex drip also in the ICU. Case was discussed with Dr. brown wire walker he is very helpful. Reason For Visit: M17.12 UNILATERAL PRIMARY OSTEOARTHRITIS, LEFT KNE Physical Exam Vital Signs: Temp Pulse Resp BP Pulse Ox 98.7 F 110 H 17 134/76 H 100 04/26/20 04:15 04/26/20 04:15 04/26/20 04:15 04/26/20 04:15 04/26/20 04:15 Intake & Output 04/25/20 04/26/20 04/27/20 06:59 06:59 06:59 Intake Total 0 4008 Output Total 750 Balance 0 3258 Weight 83.91 kg 91 kg General appearance: PRESENT: no acute distress, well-developed, other - Patient is currently clearly confused. Not agitated. Head exam: PRESENT: atraumatic Eye exam: PRESENT: PERRLA Mouth exam: PRESENT: moist, tongue midline Neck exam: ABSENT: carotid bruit, JVD, lymphadenopathy, thyromegaly Respiratory exam: PRESENT: clear to auscultation leonardo. ABSENT: rales, rhonchi, wheezes Cardiovascular exam: PRESENT: RRR. ABSENT: diastolic murmur, rubs, systolic murmur Vascular exam: PRESENT: normal capillary refill GI/Abdominal exam: PRESENT: normal bowel sounds, soft. ABSENT: distended, guarding, mass, organolmegaly, rebound, tenderness Rectal exam: PRESENT: deferred Extremities exam: PRESENT: full ROM. ABSENT: calf tenderness, clubbing, pedal edema Neurological exam: PRESENT: awake, CN II-XII grossly intact, motor sensory deficit, other - confused but not agitated. Psychiatric exam: PRESENT: appropriate affect, normal mood. ABSENT: homicidal ideation, suicidal ideation Results Laboratory Results: 04/26/20 05:30 04/26/20 05:30 04/25/20 04/25/20 04/25/20 13:20 13:20 14:23 WBC 5.1 RBC 3.23 L Hgb 11.3 L Hct 32.1 L MCV 100 H MCH 35.1 H MCHC 35.2 RDW 14.4 H Plt Count 258 Seg Neutrophils % Not Reportable Sodium Cancelled 125.7 L Potassium Cancelled 4.8 Chloride Cancelled 90 L Carbon Dioxide Cancelled 23 Anion Gap Cancelled 13 BUN Cancelled 9 Creatinine Cancelled 0.86 Est GFR ( Amer) Cancelled > 60 Est GFR (Non-Af Amer) Cancelled Glucose Cancelled 139 H Calcium Cancelled 9.3 Magnesium Cancelled 1.3 L Total Bilirubin Cancelled 0.9 AST Cancelled 388 H Alkaline Phosphatase Cancelled 157 H Total Protein Cancelled 6.3 Albumin Cancelled 3.6 04/26/20 04/26/20 05:30 05:30 WBC 5.1 RBC 2.32 L Hgb 8.1 L D Hct 23.3 L MCV 100 H MCH 35.0 H MCHC 34.9 RDW 14.1 H Plt Count 181 Seg Neutrophils % 77.8 Sodium 119.2 L* Potassium 4.4 Chloride 86 L Carbon Dioxide 24 Anion Gap 9 BUN 17 Creatinine 1.10 Est GFR ( Amer) > 60 Est GFR (Non-Af Amer) Glucose 115 H Calcium 8.5 Magnesium 1.2 L* Total Bilirubin 0.6 AST 136 H Alkaline Phosphatase 104 Total Protein 5.5 L Albumin 3.0 L Impressions: Knee X-Ray 04/25/20 00:00 IMPRESSION: Status post total knee arthroplasty. Intraarticular and subcutaneous gas are not an unexpected finding in the immediate postoperative setting. No evidence of osseous injury. Assessment and Plan - Diagnosis (1) Hyponatremia Is this a current diagnosis for this admission?: Yes Plan: 04/25/2020-hyponatremia with serum sodium of 125.7. Slightly chronic hyponatremia secondary to heavy alcohol use. 320-there is a clear change in mental status since last night. Patient is confused agitated hallucinating given IV Ativan without any success given Valium without any success. Sitter in place. Serum sodium is 119. Serum potassium is within normal limits serum magnesium is 1.2 which is going to be supplemented with 4 g of IV magnesium. Plan is to start him on 3% hypertonic while 50 mL over 1 hour time and to repeat the labs. Request was placed by attending physician for the patient to be transferred to the ICU. (2) HTN (hypertension) Is this a current diagnosis for this admission?: Yes Plan: 04/25/2020-blood pressure this morning with systolic of more than 180. Started on IV hydralazine 10 mg every 6 hours as needed, restarted losartan. To watch blood pressures closely. 04/26/2020-patient's latest blood pressure is 134/76. Stable. (3) Alcohol abuse Is this a current diagnosis for this admission?: Yes Plan: 04/25/2020-patient given history of heavy alcohol use close to drinking 1 gallon of rum on a daily basis. Started on IV Ativan 2 mg every 4 hours as needed for agitation. To watch for the DTs. To start him on IV thiamine and folic acid. 10/27/2019-patient is a heavy alcohol user and looks like he is going to DTs from last night. He was on as needed Valium as needed Ativan. I think patient needs to be on Precedex drip in the unit. (4) Fibrillary glomerulonephritis Is this a current diagnosis for this admission?: No Plan: 04/25/2020-patient has a fibrillary GN follows with Dr. Briggs in [place]. No problems with urination. (5) Acute metabolic encephalopathy Is this a current diagnosis for this admission?: Yes Plan: 04/26/2020-altered mental status acute metabolic encephalopathy most likely multifactorial. It could be alcohol withdrawal symptoms, it can be hyponatremia. Patient is going to the unit hopefully he will be on a Precedex drip and 3% hypertonic saline
[2020-04-26] MEDS ORDERED: MAGNESIUM SULFATE 4 GM/100 ML RTUPB IV ONE (08:45)
[2020-04-26] MEDS: POLYETHYLENE GLYCOL 3350 POWDER 17 GM/1 PACKET PO SCH (09:34)
[2020-04-26] MEDS: MAGNESIUM OXIDE 400 MG TABLET PO SCH (09:35)
[2020-04-26] MEDS: METOCLOPRAMIDE HCL 10 MG TABLET PO SCH (09:35)
[2020-04-26] MEDS: ASPIRIN 325 MG TABLET PO SCH (09:35)
[2020-04-26] MEDS: GABAPENTIN 100 MG CAPSULE PO SCH ×2 (09:35→17:19)
[2020-04-26] MEDS: CARVEDILOL 3.125 MG TABLET PO SCH ×2 (09:35→21:28)
[2020-04-26] MEDS: MONTELUKAST SODIUM 10 MG TABLET PO SCH (09:35)
[2020-04-26] MEDS: CETIRIZINE 10 MG TABLET PO SCH (09:36)
[2020-04-26] MEDS: MORPHINE SULFATE 10 MG/ML INJ IV PRN (09:36)
[2020-04-26] MEDS ORDERED: (PENDING PHARMACY ID) (Magnesium Oxide [Magnesium Oxide] 400 MG) PO SCH (10:00)
[2020-04-26] MEDS ORDERED: LOSARTAN POTASSIUM 50 MG TABLET PO SCH (10:00)
[2020-04-26] MEDS ORDERED: [UNRECOGNIZED DRUG - OTHER] IH SCH (10:00)
[2020-04-26] MEDS ORDERED: DEXMEDETOMIDINE IN 0.9 % NACL 400 MCG/100 ML RTUPB IV ONE (11:06)
[2020-04-26] MEDS ORDERED: DEXMEDETOMIDINE IN NS 400 MCG/100 ML RTUPB IV PRN (11:27)
[2020-04-26] MEDS ORDERED: PHENOBARBITAL INJ 65 MG/ML VIAL IV ONE (11:36)
[2020-04-26] MEDS ORDERED: HALOPERIDOL LACTATE INJ 5 MG/1 ML VIAL IV PRN (11:41)
[2020-04-26] MEDS ORDERED: NORMAL SALINE 1000 ML 1,000 ML with POTASSIUM CHLORIDE 20 MEQ, MAGNESIUM SULFATE 8 MEQ,... IV SCH ×5 (12:00)
[2020-04-26 12:48] LABS: BLOOD UREA NITROGEN 17 mg/dL (7-20); CALCIUM 7.9 mg/dL (8.4-10.2); CARBON DIOXIDE 21 mmol/L (22-30); CHLORIDE 87 mmol/L (98-107); GLUCOSE 111 mg/dL (75-110); POTASSIUM 4.3 mmol/L (3.6-5.0)
[2020-04-26 12:51] LABS: ANION GAP 10 (5-19)
--- NOTE | 2020-04-26 13:08 | PDOC CONSULTATION ---
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 He underwent a uncomplicated left knee arthroplasty on 04/26/20 under [facility]. Admission labs on 23 April had shown is hemoglobin is 11, sodium was 127 with a potassium of 4.6. On 25 April his sodium had dropped to 125 and today is dropped to 119. His liver enzymes on the second showed AST/ALT/ALP of 388/92/157 and today is down to 136/41/104. His albumin today is 3.0. Currently I am seeing him after he has been transferred to the ICU for administration of 3% saline. He is quite lethargic and not very responsive to oral commands or shaking. Discussions were done with the treating nurse [place] as well as recovery collector. Past Medical History Cardiac Medical History: Reports: Hypertension-primary Denies: Myocardial Infarction Pulmonary Medical History: Reports: Asthma, Bronchitis, Chronic Obstructive Pulmonary Disease (COPD) - BORDERLINE, Pneumonia Denies: Sleep Apnea Neurological Medical History: Denies: Seizures Musculoskeltal Medical History: Denies: Arthritis Psychiatric Medical History: Reports: Depression Past Surgical History Past Surgical History: Reports: Cholecystectomy, Colostomy, Other - Partial colon resection for diverticular disease with colostomy bag followe Social History Smoking Status: Former Smoker Electronic Cigarette use?: No Frequency of Alcohol Use: Heavy Hx Recreational Drug Use: No Hx Prescription Drug Abuse: No - Advance Directive Resuscitation Status: Full Code Family History Parental Family History Reviewed: No Children Family History Reviewed: No Sibling(s) Family History Reviewed.: No Medication/Allergy Home Medications: Cetirizine HCl [Zyrtec 10 mg Tablet] 1 tab PO DAILY 01/09/14 Carvedilol [Coreg] 3.125 mg PO BID 12/14/19 Magnesium Oxide 400 mg PO DAILY 12/14/19 Metoclopramide HCl [Reglan] 10 mg PO QAM 12/14/19 Ondansetron [Zofran Odt 4 mg Tablet] 1 - 2 tab PO Q4HP PRN 12/14/19 Albuterol Sulfate [Proair HFA Inhalation Aerosol 8.5 gm MDI] 2 puff IH PRN PRN 12/21/19 Montelukast Sodium [Singulair 10 mg Tablet] 10 mg PO DAILY 12/21/19 Tiotropium [place] [Spiriva Handihaler 5 Cap/Kit (18 Mcg/Cap)] 2 puff IH DAILY 12/21/19 Allergies/Adverse Reactions: lisinopril [Lisinopril] Allergy (Severe, Verified 04/25/20 05:37) sildenafil [From Viagra] Allergy (Intermediate, Verified 04/25/20 05:37) testosterone [From Depo-Testosterone] Allergy (Verified 04/25/20 05:37) SILK TAPE Allergy (Uncoded 04/25/20 05:37) Review of Systems ROS unobtainable: Due to mental status Physical Exam Vital Signs: Temp Pulse Resp BP Pulse Ox 98.7 F 110 H 17 134/76 H 100 04/26/20 04:15 04/26/20 04:15 04/26/20 04:15 04/26/20 04:15 04/26/20 04:15 Intake & Output 04/25/20 04/26/20 04/27/20 06:59 06:59 06:59 Intake Total 0 4008 532 Output Total 750 Balance 0 3258 532 Weight 83.91 kg 91 kg General appearance: PRESENT: no acute distress Exam: Patient in the ICU. He is quite lethargic and not responsive to all verbal or shaking commands. Eye exam: PRESENT: EOMI, PERRLA. ABSENT: scleral icterus Ear exam: PRESENT: normal external ear exam Neck exam: ABSENT: lymphadenopathy, meningismus, tenderness, thyromegaly, tracheal deviation Respiratory exam: PRESENT: clear to auscultation leonardo, decreased breath sounds. ABSENT: crackles Cardiovascular exam: PRESENT: +S1, +S2 GI/Abdominal exam: PRESENT: normal bowel sounds, soft. ABSENT: organomegaly, tenderness Extremities exam: PRESENT: other - Right leg is wrapped up and bandaged. Postop.. ABSENT: pedal edema Neurological exam: PRESENT: altered Skin exam: ABSENT: erythema, mottled, rash Results Laboratory Results: 04/26/20 05:30 04/26/20 11:55 04/25/20 04/25/20 04/25/20 13:20 13:20 14:23 WBC 5.1 RBC 3.23 L Hgb 11.3 L Hct 32.1 L MCV 100 H MCH 35.1 H MCHC 35.2 RDW 14.4 H Plt Count 258 Seg Neutrophils % Not Reportable Sodium Cancelled 125.7 L Potassium Cancelled 4.8 Chloride Cancelled 90 L Carbon Dioxide Cancelled 23 Anion Gap Cancelled 13 BUN Cancelled 9 Creatinine Cancelled 0.86 Est GFR ( Amer) Cancelled > 60 Est GFR (Non-Af Amer) Cancelled Glucose Cancelled 139 H Serum Osmolality Calcium Cancelled 9.3 Magnesium Cancelled 1.3 L Total Bilirubin Cancelled 0.9 AST Cancelled 388 H Alkaline Phosphatase Cancelled 157 H Total Protein Cancelled 6.3 Albumin Cancelled 3.6 Urine Osmolality 04/26/20 04/26/20 04/26/20 05:30 05:30 05:30 WBC 5.1 RBC 2.32 L Hgb 8.1 L D Hct 23.3 L MCV 100 H MCH 35.0 H MCHC 34.9 RDW 14.1 H Plt Count 181 Seg Neutrophils % 77.8 Sodium 119.2 L* Potassium 4.4 Chloride 86 L Carbon Dioxide 24 Anion Gap 9 BUN 17 Creatinine 1.10 Est GFR ( Amer) > 60 Est GFR (Non-Af Amer) Glucose 115 H Serum Osmolality 251 L Calcium 8.5 Magnesium 1.2 L* Total Bilirubin 0.6 AST 136 H Alkaline Phosphatase 104 Total Protein 5.5 L Albumin 3.0 L Urine Osmolality 04/26/20 04/26/20 08:30 11:55 WBC RBC Hgb Hct MCV MCH MCHC RDW Plt Count Seg Neutrophils % Sodium 118.4 L* Potassium 4.3 Chloride 87 L Carbon Dioxide 21 L Anion Gap 10 BUN 17 Creatinine 0.92 Est GFR ( Amer) > 60 Est GFR (Non-Af Amer) Glucose 111 H Serum Osmolality Calcium 7.9 L Magnesium Total Bilirubin AST Alkaline Phosphatase Total Protein Albumin Urine Osmolality 257 L Impressions: Knee X-Ray 04/25/20 00:00 IMPRESSION: Status post total knee arthroplasty. Intraarticular and subcutaneous gas are not an unexpected finding in the immediate postoperative setting. No evidence of osseous injury. Assessment & Plan - Diagnosis (1) Hyponatremia Is this a current diagnosis for this admission?: Yes Plan: Severe. Patient has got altered mental status which may be more coming from anesthetics/alcohol withdrawal. However severe acute hyponatremia is also a factor. Given his history of alcoholism it is very likely that patient has had a chronic hyponatremia with an acute decompensation. Lab and clincal evaluation suggests that he has got features suggestive of volume depletion related hyponatremia rather than SIADH which is an element given his current history of surgeryand the pain issues. I will start him on IV normal saline and continue with 3% saline judiciously. Suggest every 4 hour chemistries as is being done. Discussed with recovery collector.If his hyponatremia worsens after couple of liters of normal saline then I will discontinue that and continue on 3% saline.Given his possibility of chronic hyponatremia would recommend not overcorrection of his hyponatremia by more than 8 to 10 mEq in 24 hours. (2) Acute metabolic encephalopathy Is this a current diagnosis for this admission?: Yes Plan: Postop/drug/alcohol withdrawal/sedation/Hyponatremia. (3) Alcohol withdrawal Qualifiers: Complication of substance-induced condition: with delirium Qualified Code(s): F10.231 - Alcohol dependence with withdrawal delirium Is this a current diagnosis for this admission?: Yes Plan: Monitor for DTs. (4) HTN (hypertension) Is this a current diagnosis for this admission?: Yes Plan: Currently low normal. Clinically looks as is volume depleted. Will start normal saline with bolus followed by continuous infusion. (5) Status post left knee replacement Is this a current diagnosis for this admission?: Yes Plan: Uneventful. As per Ortho surgeon. (6) Alcohol abuse Is this a current diagnosis for this admission?: Yes Plan: History of. Monitor for withdrawal/DTs.
[2020-04-26] MEDS ORDERED: NORMAL SALINE 1000 ML 1,000 ML IV PRN (14:05)
[2020-04-26] MEDS ORDERED: NORMAL SALINE 250 ML IV ONE (14:15)
[2020-04-26 14:51] LABS: ANION GAP 6 (5-19); BLOOD UREA NITROGEN 16 mg/dL (7-20); CALCIUM 8.2 mg/dL (8.4-10.2); CARBON DIOXIDE 24 mmol/L (22-30); CHLORIDE 90 mmol/L (98-107); GLUCOSE 123 mg/dL (75-110); POTASSIUM 4.2 mmol/L (3.6-5.0)
[2020-04-26] MEDS: PHENOBARBITAL INJ 65 MG/ML VIAL IV PRN ×4 (15:05→22:30)
--- NOTE | 2020-04-26 17:13 | PDOC CRITICAL CARE PROG REPORT ---
General Date:: 04/26/20 ICU Day:: 1 Hospital Day:: 2 Resuscitation Status: Full Code Events in the past 12 to 24 Hours:: This 64-year-old male reformed smoker is seen in consultation at the request of Dr. Misha Leblanc for recommendations on further evaluation and management of hyponatremia. He was admitted on 04/25/2020 for left total knee replacement (Dr. Lemus). In fact, the patient is being followed by the nephrology service, who has requested treatment with 3% saline, requiring transfer to the ICU. He has acute on chronic hyponatremia. He chronically consumes alcohol (ROM) and is known to have fibrillary glomerulonephritis, contributing to his hyponatremia. However, his serum sodium was noted to fall from 126 to 119 overnight. At the time of clinical interview, the patient is awake, alert and follows commands. He is oriented to time, person and place. He does demonstrate fine resting tremors. He has been receiving Valium as needed. He denies headache, nausea, vomiting or abdominal pain. He denies shortness of breath. He reports he has a history of diastolic dysfunction. He denies chest pain. He only endorses postoperative pain in the left knee and leg. PAST MEDICAL HISTORY: Hypertension Asthma Chronic obstructive pulmonary disease Diastolic dysfunction Fibrillary glomerulonephritis PAST SURGICAL HISTORY: Cholecystectomy Partial colon resection for diverticular disease with colostomy bag followed by reversal SOCIAL HISTORY: [place] Tobacco: Reformed smoker Alcohol: Drinks rum daily Illicit drugs: Denies FAMILY HISTORY: Hypertension ALLERGIES: ANNMARIE inhibitors, Viagra, testosterone, silk tape CODE STATUS: Full code HOME MEDICATIONS: Cetirizine 10 mg p.o. daily Coreg 3.125 mg p.o. twice daily Magnesium oxide 400 mg p.o. daily Reglan 10 mg p.o. daily Zofran 4 mg 1 to 2 tablets p.o. every 4 hours as needed Albuterol 2 puffs inhaled as needed Singulair 10 mg p.o. daily Spiriva Review of systems relevant to events:: Neuropsychiatric: Alcohol withdrawal Renal: Fibrillary glomerulonephritis, acute on chronic hyponatremia Musculoskeletal: Left total knee arthroplasty Reason for ICU Addmission:: Treatment of acute on chronic hyponatremia with 3% saline - Medications: Medications reviewed and adjusted accordingly: Yes Physical Exam Vital Signs: Temp Pulse Resp BP Pulse Ox 98.7 F 110 H 17 134/76 H 100 04/26/20 04:15 04/26/20 04:15 04/26/20 04:15 04/26/20 04:15 04/26/20 04:15 Intake & Output 04/25/20 04/26/20 04/27/20 06:59 06:59 06:59 Intake Total 0 4008 Output Total 750 Balance 0 3258 Weight 83.91 kg 91 kg Weight/Height Weight 91 kg Height 1.73 m General appearance: PRESENT: no acute distress, well-developed, well-nourished Head exam: PRESENT: atraumatic, normocephalic Eye exam: PRESENT: conjunctiva pink, EOMI, PERRLA. ABSENT: scleral icterus Mouth exam: PRESENT: moist, tongue midline Neck exam: ABSENT: carotid bruit, JVD, lymphadenopathy, thyromegaly Respiratory exam: PRESENT: clear to auscultation leonardo. ABSENT: rales, rhonchi, wheezes Cardiovascular exam: PRESENT: RRR. ABSENT: diastolic murmur, rubs, systolic murmur Pulses: PRESENT: normal dorsalis pedis pul GI/Abdominal exam: PRESENT: normal bowel sounds, soft. ABSENT: distended, guarding, mass, organolmegaly, rebound, tenderness Extremities exam: PRESENT: pedal edema, other - Left knee bandaged after undergoing total knee arthroplasty. ABSENT: calf tenderness, clubbing Neurological exam: PRESENT: alert, awake, oriented to person, oriented to place, oriented to time, oriented to situation, CN II-XII grossly intact. ABSENT: motor sensory deficit Psychiatric exam: PRESENT: appropriate affect, normal mood. ABSENT: homicidal ideation, suicidal ideation Laboratory/Radiographs Laboratory Results: 04/26/20 05:30 04/26/20 05:30 04/25/20 04/25/20 04/25/20 13:20 13:20 14:23 WBC 5.1 RBC 3.23 L Hgb 11.3 L Hct 32.1 L MCV 100 H MCH 35.1 H MCHC 35.2 RDW 14.4 H Plt Count 258 Seg Neutrophils % Not Reportable Sodium Cancelled 125.7 L Potassium Cancelled 4.8 Chloride Cancelled 90 L Carbon Dioxide Cancelled 23 Anion Gap Cancelled 13 BUN Cancelled 9 Creatinine Cancelled 0.86 Est GFR ( Amer) Cancelled > 60 Est GFR (Non-Af Amer) Cancelled Glucose Cancelled 139 H Serum Osmolality Calcium Cancelled 9.3 Magnesium Cancelled 1.3 L Total Bilirubin Cancelled 0.9 AST Cancelled 388 H Alkaline Phosphatase Cancelled 157 H Total Protein Cancelled 6.3 Albumin Cancelled 3.6 Urine Osmolality 04/26/20 04/26/20 04/26/20 05:30 05:30 05:30 WBC 5.1 RBC 2.32 L Hgb 8.1 L D Hct 23.3 L MCV 100 H MCH 35.0 H MCHC 34.9 RDW 14.1 H Plt Count 181 Seg Neutrophils % 77.8 Sodium 119.2 L* Potassium 4.4 Chloride 86 L Carbon Dioxide 24 Anion Gap 9 BUN 17 Creatinine 1.10 Est GFR ( Amer) > 60 Est GFR (Non-Af Amer) Glucose 115 H Serum Osmolality 251 L Calcium 8.5 Magnesium 1.2 L* Total Bilirubin 0.6 AST 136 H Alkaline Phosphatase 104 Total Protein 5.5 L Albumin 3.0 L Urine Osmolality 04/26/20 08:30 WBC RBC Hgb Hct MCV MCH MCHC RDW Plt Count Seg Neutrophils % Sodium Potassium Chloride Carbon Dioxide Anion Gap BUN Creatinine Est GFR ( Amer) Est GFR (Non-Af Amer) Glucose Serum Osmolality Calcium Magnesium Total Bilirubin AST Alkaline Phosphatase Total Protein Albumin Urine Osmolality 257 L Impressions: Knee X-Ray 04/25/20 00:00 IMPRESSION: Status post total knee arthroplasty. Intraarticular and subcutaneous gas are not an unexpected finding in the immediate postoperative setting. No evidence of osseous injury. All labs, radiographs, diagnostic studies and EKGs were personally reviewed: Yes In addition, reports of radiographic and diagnostic studies were read: Yes Assessment and Plan - Diagnosis (1) Hyponatremia Is this a current diagnosis for this admission?: Yes Plan: 3% saline 100 mL bolus over 1 hour. Repeat BMP. (2) Fibrillary glomerulonephritis Is this a current diagnosis for this admission?: No Plan: 04/25/2020-patient has a fibrillary GN follows with Dr. Briggs in [place]. No problems with urination. (3) HTN (hypertension) Is this a current diagnosis for this admission?: Yes Plan: Restart carvedilol 3.125 mg p.o. twice daily. Will need attention to postoperative pain control. (4) Status post left knee replacement Is this a current diagnosis for this admission?: Yes Plan: Will need management of postoperative pain control. Tylenol 650 mg p.o. every 6 hours as needed. Oxycodone, tramadol and morphine has already been prescribed by orthopedic surgery. (5) Alcohol withdrawal Qualifiers: Complication of substance-induced condition: with delirium Qualified Code(s): F10.231 - Alcohol dependence with withdrawal delirium Is this a current diagnosis for this admission?: Yes Plan: Start Precedex. Avoid benzodiazepines. Will start phenobarbital therapy for alcohol withdrawal. Critical Time Critical Time (minutes): 60 Level of Care: ICU -: 1. The care of a critical patient is a dynamic process. This note is a automobile sales representative synopsis but static in nature. The timeframe for treatments given in order is not necessarily the actual time these treatments may have been done. 2. This patient requires critical care secondary to ongoing requirements for therapy not offered or safe outside the critical care environment. Transfer to a lower level of care will result in altered life or limb morbidity and mortality. 3. Multidisciplinary rounds completed. 4. ABCDE bundle addressed.
[2020-04-26 18:08] LABS: ANION GAP 5 (5-19); BLOOD UREA NITROGEN 17 mg/dL (7-20); CALCIUM 8.1 mg/dL (8.4-10.2); CARBON DIOXIDE 25 mmol/L (22-30); CHLORIDE 91 mmol/L (98-107); GLUCOSE 127 mg/dL (75-110); POTASSIUM 4.4 mmol/L (3.6-5.0)
[2020-04-26] MEDS: MAGNESIUM SULFATE/D5W 1 GM/100 ML RTUPB IV SCH ×3 (21:45→23:31)
[2020-04-26 21:49] LABS: ANION GAP 6 (5-19); BLOOD UREA NITROGEN 17 mg/dL (7-20); CALCIUM 8.3 mg/dL (8.4-10.2); CARBON DIOXIDE 24 mmol/L (22-30); CHLORIDE 92 mmol/L (98-107); GLUCOSE 116 mg/dL (75-110); POTASSIUM 4.5 mmol/L (3.6-5.0)
[2020-04-27] MEDS ORDERED: SODIUM CHLORIDE 3% 500 ML IV ONE (00:53)
[2020-04-27 01:43] LABS: ANION GAP 5 (5-19); BLOOD UREA NITROGEN 16 mg/dL (7-20); CALCIUM 8.1 mg/dL (8.4-10.2); CARBON DIOXIDE 23 mmol/L (22-30); CHLORIDE 96 mmol/L (98-107); GLUCOSE 134 mg/dL (75-110); POTASSIUM 4.2 mmol/L (3.6-5.0)
[2020-04-27] MEDS: PHENOBARBITAL INJ 65 MG/ML VIAL IV PRN ×5 (02:36→09:54)
[2020-04-27] MEDS ORDERED: SODIUM CHLORIDE 3% 500 ML IV PRN ×2 (02:40→07:50)
[2020-04-27] MEDS: LORAZEPAM INJ 2 MG/1 ML VIAL IV PRN (05:24)
[2020-04-27] MEDS: PANTOPRAZOLE SODIUM 40 MG TABLET.DR PO SCH ×2 (05:44→17:04)
[2020-04-27] MEDS: ACETAMINOPHEN 325 MG TABLET PO SCH (05:44)
[2020-04-27 06:23] LABS: HEMATOCRIT 23.9 % (37.9-51.0); HEMOGLOBIN 8.2 g/dL (13.5-17.0); MEAN CORPUSCULAR HEMOGLOBIN 34.3 pg (27.0-33.4); MEAN CORPUSCULAR HGB CONC 34.2 g/dL (32.0-36.0); MEAN CORPUSCULAR VOLUME 100 fl (80-97); PLATELET COUNT 149 10^3/uL (150-450); RED BLOOD COUNT 2.38 10^6/uL (4.35-5.55); WHITE BLOOD COUNT 7.1 10^3/uL (4.0-10.5)
[2020-04-27 06:55] LABS: ANION GAP 6 (5-19); BLOOD UREA NITROGEN 17 mg/dL (7-20); CALCIUM 8.4 mg/dL (8.4-10.2); CARBON DIOXIDE 23 mmol/L (22-30); CHLORIDE 98 mmol/L (98-107); GLUCOSE 112 mg/dL (75-110); POTASSIUM 4.5 mmol/L (3.6-5.0)
[2020-04-27 07:05] LABS: ABSOLUTE LYMPHOCYTES# (MANUAL) 0.9 10^3/uL (0.5-4.7); ABSOLUTE MONOCYTES # (MANUAL) 0.6 10^3/uL (0.1-1.4); ANISOCYTOSIS 1+; BAND NEUTROPHILS % (MANUAL) 4 % (3-5); BASOPHILS % (MANUAL) 0 % (0-2); EOSINOPHILS % (MANUAL) 8 % (0-6); LYMPHOCYTES % (MANUAL) 12 % (13-45); MONOCYTES % (MANUAL) 9 % (3-13); POLYCHROMASIA 1+; SEGMENTED NEUTROPHILS % (MAN) 67 % (42-78); TOTAL CELLS COUNTED 100
[2020-04-27 07:06] LABS: PLATELET COMMENT ADEQUATE
--- NOTE | 2020-04-27 07:18 | PDOC PROGRESS REPORT ---
Subjective Progress Note for:: 04/27/20 Subjective:: The patient was admitted to the ICU for 3% saline as well as treatment for alcohol withdrawal. He is currently responsive to physical stimuli only. Delirious. Currently on a phenobarbital drip Reason For Visit: M17.12 UNILATERAL PRIMARY OSTEOARTHRITIS, LEFT KNE Physical Exam Vital Signs: Temp Pulse Resp BP Pulse Ox 97.9 F 81 9 L 100/63 99 04/26/20 23:37 04/26/20 23:37 04/26/20 23:37 04/26/20 23:37 04/26/20 23:37 Intake & Output 04/26/20 04/27/20 04/28/20 06:59 06:59 06:59 Intake Total 4008 1931 Output Total 750 1035 Balance 3258 896 Weight 91 kg 96.7 kg Physical Exam: Delirious, not verbally responsive at this time. Left lower extremity Wound is clean dry and intact Patient is moving all extremities but not to instruction. No increased swelling noted in the left lower extremity at this time. Results Laboratory Results: 04/27/20 05:51 04/27/20 05:51 04/26/20 04/26/20 04/26/20 05:30 08:30 11:55 WBC RBC Hgb Hct MCV MCH MCHC RDW Plt Count Seg Neutrophils % Sodium 118.4 L* Potassium 4.3 Chloride 87 L Carbon Dioxide 21 L Anion Gap 10 BUN 17 Creatinine 0.92 Est GFR ( Amer) > 60 Glucose 111 H Serum Osmolality 251 L Calcium 7.9 L Phosphorus Magnesium Urine Osmolality 257 L 04/26/20 04/26/20 04/26/20 14:23 17:01 21:16 WBC RBC Hgb Hct MCV MCH MCHC RDW Plt Count Seg Neutrophils % Sodium 119.7 L* 121.2 L 122.2 L Potassium 4.2 4.4 4.5 Chloride 90 L 91 L 92 L Carbon Dioxide 24 25 24 Anion Gap 6 5 6 BUN 16 17 17 Creatinine 0.93 1.01 1.06 Est GFR ( Amer) > 60 > 60 > 60 Glucose 123 H 127 H 116 H Serum Osmolality Calcium 8.2 L 8.1 L 8.3 L Phosphorus Magnesium Urine Osmolality 04/26/20 04/27/20 04/27/20 21:16 00:48 05:51 WBC RBC Hgb Hct MCV MCH MCHC RDW Plt Count Seg Neutrophils % Sodium 124.1 L 127.4 L Potassium 4.2 4.5 Chloride 96 L 98 Carbon Dioxide 23 23 Anion Gap 5 6 BUN 16 17 Creatinine 1.01 0.94 Est GFR ( Amer) > 60 > 60 Glucose 134 H 112 H Serum Osmolality Calcium 8.1 L 8.4 Phosphorus 4.0 Magnesium 3.2 H Urine Osmolality 04/27/20 05:51 WBC 7.1 RBC 2.38 L Hgb 8.2 L Hct 23.9 L MCV 100 H MCH 34.3 H MCHC 34.2 RDW 14.0 Plt Count 149 L Seg Neutrophils % Not Reportable Sodium Potassium Chloride Carbon Dioxide Anion Gap BUN Creatinine Est GFR ( Amer) Glucose Serum Osmolality Calcium Phosphorus Magnesium Urine Osmolality Impressions: Knee X-Ray 04/25/20 00:00 IMPRESSION: Status post total knee arthroplasty. Intraarticular and subcutaneous gas are not an unexpected finding in the immediate postoperative setting. No evidence of osseous injury. Assessment & Plan - Diagnosis (1) Status post left knee replacement Is this a current diagnosis for this admission?: Yes Plan: - 2 doses of Ancef postoperatively q 8 hours to complete 24 hours perioperatively -Weightbearing as tolerated, no precautions, encourage out of bed PATI for ADL training - PT/OT - Keep knee extended in bed, rolled towel under the ankle to obtain full extension -aspirin 325 daily for DVT prophylaxis for 6 weeks -multimodal pain management to avoid excessive narcotics, including gabapentin, tramadol, Toradol, acetaminophen. -Dressing should not be removed for 7 to 10 days until seen in the office -May shower with the dressing intact, if it starts to come off she should not get the incision wet. -We will continue to evaluate recovery from alcohol withdrawal and subsequently ability for patient to begin rehabbing his knee. (2) Hyponatremia Is this a current diagnosis for this admission?: Yes Plan: Improving. Goal as per nephrology is 125. Will defer further place to nephrology and ICU team. (3) Alcohol abuse Is this a current diagnosis for this admission?: Yes Plan: As sodium approaches normal patient may be able to be discharged to [facility] for further monitoring. Currently on phenobarbital, will defer to medicine team for further management. - Time Time Spent with patient: Less than 15 minutes
[2020-04-27] MEDS: METOCLOPRAMIDE HCL 10 MG TABLET PO SCH (09:45)
[2020-04-27] MEDS: GABAPENTIN 100 MG CAPSULE PO SCH ×2 (09:45→17:05)
[2020-04-27] MEDS: CARVEDILOL 3.125 MG TABLET PO SCH ×2 (09:54→22:09)
[2020-04-27] MEDS ORDERED: CELECOXIB 200 MG CAPSULE PO SCH (10:00)
[2020-04-27] MEDS ORDERED: ACETAMINOPHEN 650 MG SUPP.RECT PR PRN (11:03)
[2020-04-27] MEDS: CETIRIZINE 10 MG TABLET PO SCH (11:58)
[2020-04-27] MEDS: MONTELUKAST SODIUM 10 MG TABLET PO SCH (11:58)
[2020-04-27] MEDS: ASPIRIN 325 MG TABLET PO SCH (11:58)
[2020-04-27] MEDS: POLYETHYLENE GLYCOL 3350 POWDER 17 GM/1 PACKET PO SCH (11:58)
[2020-04-27] MEDS: MAGNESIUM OXIDE 400 MG TABLET PO SCH (11:58)
--- NOTE | 2020-04-27 16:50 | PDOC CRITICAL CARE PROG REPORT ---
General Date:: 04/27/20 ICU Day:: 2 Hospital Day:: 3 Resuscitation Status: Full Code Events in the past 12 to 24 Hours:: 04/27: On 3% saline at 40 mL/h. Most recent sodium 127. Sleeping comfortably. Overnight, he received 2 doses of phenobarbital but also got a dose of lorazepam. Review of systems relevant to events:: Neuropsychiatric: Alcohol withdrawal Renal: Fibrillary glomerulonephritis, acute on chronic hyponatremia Musculoskeletal: Left total knee arthroplasty Reason for ICU Addmission:: Treatment of acute on chronic hyponatremia with 3% saline - Medications: Medications reviewed and adjusted accordingly: Yes Physical Exam Vital Signs: Temp Pulse Resp BP Pulse Ox 97.9 F 81 9 L 100/63 99 04/26/20 23:37 04/26/20 23:37 04/26/20 23:37 04/26/20 23:37 04/26/20 23:37 Intake & Output 04/26/20 04/27/20 04/28/20 06:59 06:59 06:59 Intake Total 4008 1931 Output Total 750 1035 Balance 3258 896 Weight 91 kg 96.7 kg Weight/Height Weight 96.7 kg Height 1.73 m General appearance: PRESENT: no acute distress, well-developed, well-nourished Head exam: PRESENT: atraumatic, normocephalic Eye exam: PRESENT: conjunctiva pink, EOMI, PERRLA. ABSENT: scleral icterus Neck exam: ABSENT: carotid bruit, JVD, lymphadenopathy, thyromegaly Respiratory exam: PRESENT: clear to auscultation leonardo. ABSENT: rales, rhonchi, wheezes Cardiovascular exam: PRESENT: RRR. ABSENT: diastolic murmur, rubs, systolic murmur Pulses: PRESENT: normal dorsalis pedis pul GI/Abdominal exam: PRESENT: normal bowel sounds, soft. ABSENT: distended, gua rding, mass, organolmegaly, rebound, tenderness Extremities exam: PRESENT: full ROM, other - Left knee bandaged after TKR. ABSENT: calf tenderness, clubbing, pedal edema Neurological exam: PRESENT: altered, CN II-XII grossly intact. ABSENT: motor s ensory deficit Skin exam: PRESENT: dry, intact, warm. ABSENT: cyanosis, rash Laboratory/Radiographs Laboratory Results: 04/27/20 05:51 04/27/20 05:51 04/26/20 04/26/20 04/26/20 05:30 08:30 11:55 WBC RBC Hgb Hct MCV MCH MCHC RDW Plt Count Seg Neutrophils % Sodium 118.4 L* Potassium 4.3 Chloride 87 L Carbon Dioxide 21 L Anion Gap 10 BUN 17 Creatinine 0.92 Est GFR ( Amer) > 60 Glucose 111 H Serum Osmolality 251 L Calcium 7.9 L Phosphorus Magnesium Urine Osmolality 257 L 04/26/20 04/26/20 04/26/20 14:23 17:01 21:16 WBC RBC Hgb Hct MCV MCH MCHC RDW Plt Count Seg Neutrophils % Sodium 119.7 L* 121.2 L 122.2 L Potassium 4.2 4.4 4.5 Chloride 90 L 91 L 92 L Carbon Dioxide 24 25 24 Anion Gap 6 5 6 BUN 16 17 17 Creatinine 0.93 1.01 1.06 Est GFR ( Amer) > 60 > 60 > 60 Glucose 123 H 127 H 116 H Serum Osmolality Calcium 8.2 L 8.1 L 8.3 L Phosphorus Magnesium Urine Osmolality 04/26/20 04/27/20 04/27/20 21:16 00:48 05:51 WBC RBC Hgb Hct MCV MCH MCHC RDW Plt Count Seg Neutrophils % Sodium 124.1 L 127.4 L Potassium 4.2 4.5 Chloride 96 L 98 Carbon Dioxide 23 23 Anion Gap 5 6 BUN 16 17 Creatinine 1.01 0.94 Est GFR ( Amer) > 60 > 60 Glucose 134 H 112 H Serum Osmolality Calcium 8.1 L 8.4 Phosphorus 4.0 Magnesium 3.2 H Urine Osmolality 04/27/20 05:51 WBC 7.1 RBC 2.38 L Hgb 8.2 L Hct 23.9 L MCV 100 H MCH 34.3 H MCHC 34.2 RDW 14.0 Plt Count 149 L Seg Neutrophils % Not Reportable Sodium Potassium Chloride Carbon Dioxide Anion Gap BUN Creatinine Est GFR ( Amer) Glucose Serum Osmolality Calcium Phosphorus Magnesium Urine Osmolality Impressions: Knee X-Ray 04/25/20 00:00 IMPRESSION: Status post total knee arthroplasty. Intraarticular and subcutaneous gas are not an unexpected finding in the immediate postoperative setting. No evidence of osseous injury. All labs, radiographs, diagnostic studies and EKGs were personally reviewed: Yes In addition, reports of radiographic and diagnostic studies were read: Yes Assessment and Plan - Diagnosis (1) Hyponatremia Is this a current diagnosis for this admission?: Yes Plan: Chronic hyponatremia, appears to be back at baseline. Add salt tabs to p.o. diet. May transfer back to the floor (2) Alcohol withdrawal Qualifiers: Complication of substance-induced condition: with delirium Qualified Code(s): F10.231 - Alcohol dependence with withdrawal delirium Is this a current diagnosis for this admission?: Yes Plan: Stop all benzodiazepines. May transfer out of the floor with IV to p.o conversion of phenobarbital dosing. (3) Fibrillary glomerulonephritis Is this a current diagnosis for this admission?: No (4) HTN (hypertension) Is this a current diagnosis for this admission?: Yes Plan: Restart carvedilol 3.125 mg p.o. twice daily. Will need attention to postoperative pain control. (5) Status post left knee replacement Is this a current diagnosis for this admission?: Yes Plan: Will need management of postoperative pain control. Tylenol 650 mg p.o. every 6 hours as needed. Oxycodone, tramadol and morphine has already been prescribed by orthopedic surgery. Critical Time Critical Time (minutes): 60 Level of Care: ICU -: 1. The care of a critical patient is a dynamic process. This note is a sales training representative synopsis but static in nature. The timeframe for treatments gi renata in order is not necessarily the actual time these treatments may have been done. 2. This patient requires critical care secondary to ongoing requirements for therapy not offered or safe outside the critical care environment. Transfer to a lower level of care will result in altered life or limb morbidity and mortality. 3. Multidisciplinary rounds completed. 4. ABCDE bundle addressed.
[2020-04-27 17:04] LABS: BLOOD UREA NITROGEN 15 mg/dL (7-20); CALCIUM 7.9 mg/dL (8.4-10.2); GLUCOSE 106 mg/dL (75-110); POTASSIUM 4.5 mmol/L (3.6-5.0)
[2020-04-27] MEDS: HEPARIN SOD (PORCINE) 5,000 UNIT/ML 1 ML VIAL SUBCUT SCH ×2 (17:08→22:10)
[2020-04-27 17:09] LABS: CARBON DIOXIDE 24 mmol/L (22-30); CHLORIDE 102 mmol/L (98-107)
[2020-04-27 17:15] LABS: ANION GAP 3 (5-19)
[2020-04-27] MEDS ORDERED: PHENOBARBITAL 64.8 MG TABLET PO PRN (18:01)
[2020-04-27] MEDS: NORMAL SALINE 1000 ML 1,000 ML IV PRN (19:04)
[2020-04-27] MEDS: PHENOBARBITAL 64.8 MG TABLET PO PRN (22:09)
[2020-04-27 23:10] LABS: ANION GAP 6 (5-19); BLOOD UREA NITROGEN 14 mg/dL (7-20); CALCIUM 8.3 mg/dL (8.4-10.2); CARBON DIOXIDE 21 mmol/L (22-30); CHLORIDE 104 mmol/L (98-107); GLUCOSE 102 mg/dL (75-110); POTASSIUM 4.9 mmol/L (3.6-5.0)
[2020-04-28] MEDS: PHENOBARBITAL 64.8 MG TABLET PO PRN ×2 (01:18→03:01)
[2020-04-28] MEDS ORDERED: LABETALOL HCL INJ 20 MG/4 ML DISP.SYRIN IV PRN (04:41)
[2020-04-28] MEDS ORDERED: LABETALOL HCL INJ 20 MG/4 ML DISP.SYRIN IV ONE (04:43)
[2020-04-28] MEDS: PANTOPRAZOLE SODIUM 40 MG TABLET.DR PO SCH (05:18)
[2020-04-28] MEDS: HEPARIN SOD (PORCINE) 5,000 UNIT/ML 1 ML VIAL SUBCUT SCH ×3 (06:00→22:46)
[2020-04-28] MEDS: MORPHINE SULFATE 10 MG/ML INJ IV PRN (06:00)
[2020-04-28 06:29] LABS: HEMOGLOBIN 8.5 g/dL (13.5-17.0); MEAN CORPUSCULAR HEMOGLOBIN 34.3 pg (27.0-33.4); MEAN CORPUSCULAR HGB CONC 33.9 g/dL (32.0-36.0); MEAN CORPUSCULAR VOLUME 101 fl (80-97); PLATELET COUNT 207 10^3/uL (150-450); RED BLOOD COUNT 2.47 10^6/uL (4.35-5.55); RED CELL DISTRIBUTION WIDTH 13.9 % (11.5-14.0); WHITE BLOOD COUNT 8.5 10^3/uL (4.0-10.5)
[2020-04-28 06:54] LABS: ANION GAP 8 (5-19); BLOOD UREA NITROGEN 13 mg/dL (7-20); CALCIUM 8.5 mg/dL (8.4-10.2); CARBON DIOXIDE 19 mmol/L (22-30); CHLORIDE 104 mmol/L (98-107); GLUCOSE 96 mg/dL (75-110); POTASSIUM 4.7 mmol/L (3.6-5.0)
[2020-04-28 06:58] LABS: ABSOLUTE LYMPHOCYTES# (MANUAL) 0.7 10^3/uL (0.5-4.7); BASOPHILS % (MANUAL) 0 % (0-2); EOSINOPHILS % (MANUAL) 1 % (0-6); LYMPHOCYTES % (MANUAL) 8 % (13-45); METAMYELOCYTES % (MANUAL) 1 % (0-1); MONOCYTES % (MANUAL) 12 % (3-13); PLATELET COMMENT ADEQUATE; RBC MORPHOLOGY COMMENT NORMO-CYTIC/CHROMIC; SEGMENTED NEUTROPHILS % (MAN) 78 % (42-78); TOTAL CELLS COUNTED 100
[2020-04-28] MEDS: METOCLOPRAMIDE HCL 10 MG TABLET PO SCH (09:30)
[2020-04-28] MEDS: POLYETHYLENE GLYCOL 3350 POWDER 17 GM/1 PACKET PO SCH (09:31)
[2020-04-28] MEDS: ASPIRIN 325 MG TABLET PO SCH (09:31)
[2020-04-28] MEDS: MONTELUKAST SODIUM 10 MG TABLET PO SCH (09:31)
[2020-04-28] MEDS: CETIRIZINE 10 MG TABLET PO SCH (09:31)
[2020-04-28] MEDS: MAGNESIUM OXIDE 400 MG TABLET PO SCH (09:31)
[2020-04-28] MEDS: GABAPENTIN 100 MG CAPSULE PO SCH (09:31)
[2020-04-28] MEDS: CARVEDILOL 3.125 MG TABLET PO SCH (09:31)
--- NOTE | 2020-04-28 09:41 | PDOC CRITICAL CARE PROG REPORT ---
General Date:: 04/28/20 ICU Day:: 3 Hospital Day:: 4 Resuscitation Status: Full Code Events in the past 12 to 24 Hours:: 04/27: On 3% saline at 40 mL/h. Most recent sodium 127. Sleeping comfortably. Overnight, he received 2 doses of phenobarbital but also got a dose of lorazepam. 04/28: Off 3% saline. On normal saline at 50 mL/h. Most recent sodium 131. Sleeping comfortably. Arousable. 1 dose of phenobarbital 130 mg p.o. overnight. Review of systems relevant to events:: Neuropsychiatric: Alcohol withdrawal Renal: Fibrillary glomerulonephritis, acute on chronic hyponatremia Musculoskeletal: Left total knee arthroplasty Reason for ICU Addmission:: Treatment of acute on chronic hyponatremia with 3% saline - Medications: Medications reviewed and adjusted accordingly: Yes Physical Exam Vital Signs: Temp Pulse Resp BP Pulse Ox 99.9 F 91 9 L 100/63 99 04/27/20 12:59 04/27/20 20:07 04/26/20 23:37 04/26/20 23:37 04/26/20 23:37 Intake & Output 04/27/20 04/28/20 04/29/20 06:59 06:59 06:59 Intake Total 1931 723 Output Total 1035 1560 Balance 896 -1560 723 Weight 96.7 kg 96.1 kg Weight/Height Weight 96.1 kg Height 1.73 m General appearance: PRESENT: no acute distress, well-developed, well-nourished Head exam: PRESENT: atraumatic, normocephalic Eye exam: PRESENT: conjunctiva pink, EOMI, PERRLA. ABSENT: scleral icterus Mouth exam: PRESENT: moist, tongue midline Neck exam: ABSENT: carotid bruit, JVD, lymphadenopathy, thyromegaly Respiratory exam: PRESENT: clear to auscultation leonardo. ABSENT: rales, rhonchi, wheezes Pulses: PRESENT: normal dorsalis pedis pul GI/Abdominal exam: PRESENT: normal bowel sounds, soft. ABSENT: distended, guarding, mass, organolmegaly, rebound, tenderness Extremities exam: PRESENT: full ROM, pedal edema - Left, other - Left knee bandaged after TKR. ABSENT: calf tenderness, clubbing Neurological exam: PRESENT: oriented to person, CN II-XII grossly intact, other - Somnolent. Protecting airway.. ABSENT: motor sensory deficit Psychiatric exam: PRESENT: suicidal ideation. ABSENT: agitated, anxious Skin exam: PRESENT: dry, intact, warm. ABSENT: cyanosis, rash Laboratory/Radiographs Laboratory Results: 04/28/20 06:11 04/28/20 06:11 04/27/20 04/27/20 04/28/20 16:45 22:45 06:11 WBC RBC Hgb Hct MCV MCH MCHC RDW Plt Count Seg Neutrophils % Sodium 129.2 L 130.7 L 130.7 L Potassium 4.5 4.9 4.7 Chloride 102 104 104 Carbon Dioxide 24 21 L 19 L Anion Gap 3 L 6 8 BUN 15 14 13 Creatinine 0.82 0.77 0.67 Est GFR ( Amer) > 60 > 60 > 60 Glucose 106 102 96 Calcium 7.9 L 8.3 L 8.5 Magnesium 2.7 H 04/28/20 06:11 WBC 8.5 RBC 2.47 L Hgb 8.5 L Hct 25.0 L MCV 101 H MCH 34.3 H MCHC 33.9 RDW 13.9 Plt Count 207 Seg Neutrophils % Not Reportable Sodium Potassium Chloride Carbon Dioxide Anion Gap BUN Creatinine Est GFR ( Amer) Glucose Calcium Magnesium Impressions: Knee X-Ray 04/25/20 00:00 IMPRESSION: Status post total knee arthroplasty. Intraarticular and subcutaneous gas are not an unexpected finding in the immediate postoperative setting. No evidence of osseous injury. All labs, radiographs, diagnostic studies and EKGs were personally reviewed: Yes In addition, reports of radiographic and diagnostic studies were read: Yes Assessment and Plan - Diagnosis (1) Hyponatremia Is this a current diagnosis for this admission?: Yes Plan: Chronic hyponatremia, appears to be back at baseline. Add salt tabs to p.o. diet. May transfer back to the floor (2) Alcohol withdrawal Qualifiers: Complication of substance-induced condition: with delirium Qualified Code(s): F10.231 - Alcohol dependence with withdrawal delirium Is this a current diagnosis for this admission?: Yes Plan: * Keep head of bed elevated to 30 degrees at all times. * No benzodiazepines. * May transfer out of the floor with IV to p.o conversion of phenobarbital dosing. (3) Fibrillary glomerulonephritis Is this a current diagnosis for this admission?: No (4) HTN (hypertension) Is this a current diagnosis for this admission?: Yes Plan: Restart carvedilol 3.125 mg p.o. twice daily. Will need attention to postoperative pain control. (5) Status post left knee replacement Is this a current diagnosis for this admission?: Yes Plan: Will need management of postoperative pain control. Tylenol 650 mg p.o. every 6 hours as needed. Oxycodone, tramadol and morphine has already been prescribed by orthopedic surgery. Critical Time Critical Time (minutes): 45 Level of Care: MEDICAL -: 1. The care of a critical patient is a dynamic process. This note is a premium service representative synopsis but static in nature. The timeframe for treatments given in order is not necessarily the actual time these treatments may have been done. 2. This patient requires critical care secondary to ongoing requirements for therapy not offered or safe outside the critical care environment. Transfer to a lower level of care will result in altered life or limb morbidity and mortality. 3. Multidisciplinary rounds completed. 4. ABCDE bundle addressed.
[2020-04-28] MEDS: NORMAL SALINE 1000 ML 1,000 ML IV PRN (11:49)
[2020-04-28] MEDS ORDERED: DEXTROSE 5%-NORMAL SALINE 1,000 ML IV PRN ×2 (13:53→16:54)
[2020-04-28] MEDS ORDERED: ONDANSETRON HCL INJ/PF 4 MG/2 ML SDV IV PRN (13:55)
--- NOTE | 2020-04-28 14:09 | PDOC CONSULTATION ---
Consultation Consult Date: 04/28/20 Attending physician:: TAMI LEMUS JR Provider Consulted: ROBIN DANIELSON Consult reason:: Altered mental status History of Present Illness Admission Date/PCP: 04/28/20 11:07 [place] DO History of Present Illness: STELLA FERRARI is a 64 year old male had a left knee arthroplasty for primary osteoarthritis end-stage. Medical consult was called for management of uncontrolled hypertension. 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 04/28/2020-patient is transferred to medical from ICU. Dr. Lemus requested reconsultation for medical management. Patient went to ICU with hyponatremia of 119 and possible need for Precedex drip. Patient was given hypertonic saline and normal saline sodium came up to 130.7. Patient was given IV phenobarbital yesterday for alcohol withdrawal symptoms now on p.o. phenobarbital. Patient is in restraints at the time of examination. Waking up with chest. He has a low- grade fever of 99.9. Plan is to move him to [facility] with telemetry for close monitoring. Stat chest x-ray and ABG are requested. Most of the medications are changed to IV at this time. Past Medical History Cardiac Medical History: Reports: Hypertension Denies: Myocardial Infarction Pulmonary Medical History: Reports: Asthma, Bronchitis, Chronic Obstructive Pul monary Disease (COPD) - BORDERLINE, Pneumonia Denies: Sleep Apnea Neurological Medical History: Denies: Seizures Musculoskeltal Medical History: Denies: Arthritis Psychiatric Medical History: Reports: Depression Hematology: Reports: Anemia Past Surgical History Past Surgical History: Reports: Cholecystectomy, Colostomy, Other - Partial colon resection for diverticular disease with colostomy bag followe Social History Smoking Status: Former Smoker Electronic Cigarette use?: No Frequency of Alcohol Use: Heavy Hx Recreational Drug Use: No Hx Prescription Drug Abuse: No - Advance Directive Resuscitation Status: Full Code Family History Parental Family History Reviewed: Yes - Family history of hypertension. Children Family History Reviewed: Yes Sibling(s) Family History Reviewed.: Yes Medication/Allergy Home Medications: Cetirizine HCl [Zyrtec 10 mg Tablet] 1 tab PO DAILY 01/09/14 Carvedilol [Coreg] 3.125 mg PO BID 12/14/19 Magnesium Oxide 400 mg PO DAILY 12/14/19 Metoclopramide HCl [Reglan] 10 mg PO QAM 12/14/19 Ondansetron [Zofran Odt 4 mg Tablet] 1 - 2 tab PO Q4HP PRN 12/14/19 Albuterol Sulfate [Proair HFA Inhalation Aerosol 8.5 gm MDI] 2 puff IH PRN PRN 12/21/19 Montelukast Sodium [Singulair 10 mg Tablet] 10 mg PO DAILY 12/21/19 Tiotropium Mcmillan [Spiriva Handihaler 5 Cap/Kit (18 Mcg/Cap)] 2 puff IH DAILY 12/21/19 Cyanocobalamin (Vitamin B-12) [Vitamin B-12 1000 Mcg Tablet] 1 tab PO DAILY 04/28/20 Mycophenolate Mofetil 1,000 mg PO BID 04/28/20 Allergies/Adverse Reactions: lisinopril [Lisinopril] Allergy (Severe, Verified 04/25/20 05:37) sildenafil [From Viagra] Allergy (Intermediate, Verified 04/25/20 05:37) testosterone [From Depo-Testosterone] Allergy (Verified 04/25/20 05:37) SILK TAPE Allergy (Uncoded 04/25/20 05:37) Review of Systems ROS unobtainable: Due to mental status - Patient unable to give any information at this time. As per the ICU team no fevers no nausea no vomitings no diarrhea no chest pains no shortness of breath is reported. Due to altered mental status/acute metabolic enclopathy he is on restraints. Physical Exam Vital Signs: Temp Pulse Resp BP Pulse Ox 99.9 F 91 9 L 100/63 99 04/27/20 12:59 04/27/20 20:07 04/26/20 23:37 04/26/20 23:37 04/26/20 23:37 Intake & Output 04/27/20 04/28/20 04/29/20 06:59 06:59 06:59 Intake Total 1931 723 Output Total 1035 1560 220 Balance 896 -1560 503 Weight 96.7 kg 96.1 kg General appearance: PRESENT: other - Patient is on restraints and responding to chest rubs by saying stop. Head exam: PRESENT: atraumatic Eye exam: PRESENT: other - Pupils are constricted but reactive. Mouth exam: PRESENT: moist, tongue midline Teeth exam: PRESENT: poor dentation Neck exam: ABSENT: carotid bruit, JVD, lymphadenopathy, thyromegaly Respiratory exam: PRESENT: decreased breath sounds, tachypnea Cardiovascular exam: PRESENT: tachycardia GI/Abdominal exam: PRESENT: normal bowel sounds, soft. ABSENT: distended, guarding, mass, organolmegaly, rebound, tenderness Rectal exam: PRESENT: deferred Extremities exam: PRESENT: other - Edema of the upper extremities seen. Especially the left upper extremity is very edematous. Neurological exam: PRESENT: CN II-XII grossly intact, other - Patient is in restraints responding to the sternal rub. Able to move all 4 extremities without any problem. Skin exam: PRESENT: dry, intact, warm. ABSENT: cyanosis, rash Results Laboratory Results: 04/28/20 06:11 04/28/20 06:11 04/27/20 04/27/20 04/28/20 16:45 22:45 06:11 WBC RBC Hgb Hct MCV MCH MCHC RDW Plt Count Seg Neutrophils % Sodium 129.2 L 130.7 L 130.7 L Potassium 4.5 4.9 4.7 Chloride 102 104 104 Carbon Dioxide 24 21 L 19 L Anion Gap 3 L 6 8 BUN 15 14 13 Creatinine 0.82 0.77 0.67 Est GFR ( Amer) > 60 > 60 > 60 Glucose 106 102 96 Calcium 7.9 L 8.3 L 8.5 Magnesium 2.7 H 04/28/20 06:11 WBC 8.5 RBC 2.47 L Hgb 8.5 L Hct 25.0 L MCV 101 H MCH 34.3 H MCHC 33.9 RDW 13.9 Plt Count 207 Seg Neutrophils % Not Reportable Sodium Potassium Chloride Carbon Dioxide Anion Gap BUN Creatinine Est GFR ( Amer) Glucose Calcium Magnesium Impressions: Knee X-Ray 04/25/20 00:00 IMPRESSION: Status post total knee arthroplasty. Intraarticular and subcutaneous gas are not an unexpected finding in the immediate postoperative setting. No evidence of osseous injury. Assessment and Plan - Diagnosis (1) Acute metabolic encephalopathy Is this a current diagnosis for this admission?: Yes Plan: 04/26/2020-altered mental status acute metabolic encephalopathy most likely multifactorial. It could be alcohol withdrawal symptoms, it can be hyponatremia. Patient is going to the unit hopefully he will be on a Precedex drip and 3% hypertonic saline 04/28/2020-patient is sedated responding only to sternal rubs. To discontinue phenobarbital to discontinue other sedatives at this time. Plan is to change most of the medications to IV. Blood sugar is 76 to start him on a D5 normal saline 50 cc/h. GI prophylaxis DVT prophylaxis initiated. Aspiration fall seizure precautions requested. To continue placement restraints. Started on Ativan 2 mg IV every 2 hours as needed for agitation and DTs. To continue to keep Ulrich's catheter at this time. To keep him n.p.o. at this time.Chest x- ray and ABG are requested. (2) Hyponatremia Is this a current diagnosis for this admission?: Yes Plan: Chronic hyponatremia, appears to be back at baseline. Add salt tabs to p.o. diet. May transfer back to the floor 04/28/2020-serum sodium is 130.7 patient has history of chronic alcohol abuse most likely this is his baseline. Plan is to closely monitor the labs every 12 hours. (3) HTN (hypertension) Is this a current diagnosis for this admission?: Yes Plan: Restart carvedilol 3.125 mg p.o. twice daily. Will need attention to postoperative pain control. 04/28/2020-blood pressure is 176/92. On IV hydralazine 10 mg every 6 hours as needed for systolic blood pressure more than 170. (4) Alcohol abuse Is this a current diagnosis for this admission?: Yes Plan: 04/25/2020-patient given history of heavy alcohol use close to drinking 1 gallon of rum on a daily basis. Started on IV Ativan 2 mg every 4 hours as needed for agitation. To watch for the DTs. To start him on IV thiamine and folic acid. 10/27/2019-patient is a heavy alcohol user and looks like he is going to DTs from last night. He was on as needed Valium as needed Ativan. I think patient needs to be on Precedex drip in the unit. 04/28/2020-patient has history of heavy alcohol use presently n.p.o. for nerve. Plan is to discontinue phenobarbital started on IV Ativan 2 mg every 2 hours as needed for agitation and to prevent DTs. (5) Fibrillary glomerulonephritis Is this a current diagnosis for this admission?: No Plan: 04/25/2020-patient has a fibrillary GN follows with Dr. Briggs in [place]. No problems with urination.
--- NOTE | 2020-04-28 14:22 | RADIOLOGY REPORT (SQ) ---
EXAM DESCRIPTION: CHEST SINGLE VIEW IMAGES COMPLETED DATE/TIME: 04/28/2020 2:09 pm REASON FOR STUDY: dyspnea COMPARISON: 12/07/2013 EXAM PARAMETERS: NUMBER OF VIEWS: One view. TECHNIQUE: Single frontal radiographic view of the chest acquired. RADIATION DOSE: NA LIMITATIONS: None. FINDINGS: LUNGS AND PLEURA: Patchy airspace opacities in the right lung base and to a lesser extent in the left lung base. Suggestion of left-sided pleural effusion. MEDIASTINUM AND HILAR STRUCTURES: No masses. Contour normal. HEART AND VASCULAR STRUCTURES: Heart normal in size. Normal vasculature. BONES: No acute findings. HARDWARE: None in the chest. OTHER: No other significant finding. IMPRESSION: Patchy airspace opacities in the lung bases with small left-sided pleural effusion. Thi s may represent an infectious process such as pneumonia or viral pneumonia. Early pulmonary edema co uld have a similar appearance as well. Clinical correlation is required. TECHNICAL DOCUMENTATION: JOB ID: [id number] 2010 [employer]- All Rights Reserved Reading location - IP/workstation name: [email or web address]
[2020-04-28 14:52] LABS: ARTERIAL BLOOD BASE EXCESS -3.6 mmol/L; ARTERIAL BLOOD FIO2 0.5NC; ARTERIAL BLOOD HCO3 19.9 mmol/L (20-24); ARTERIAL BLOOD O2 SATURATION 89.4 % (94-98); ARTERIAL BLOOD PCO2 29.8 mmHg (35-45); ARTERIAL BLOOD PH 7.44 (7.35-7.45); ARTERIAL BLOOD PO2 53.2 mmHg (80-100); ARTERIAL BLOOD TOTAL CO2 20.8 mmol/L (23-27)
[2020-04-28] MEDS ORDERED: LORAZEPAM INJ 2 MG/1 ML VIAL IV PRN (15:20)
[2020-04-28] MEDS ORDERED: GLUCAGON,HUMAN RECOMB 1 MG INJ SUBCUT PRN (15:57)
[2020-04-28] MEDS ORDERED: DEXTROSE 50%-WATER 25 GM/50 ML DISP.SYRIN IV PRN ×2 (15:57)
[2020-04-28] MEDS ORDERED: DEXTROSE 40% GEL 15 GM TUBE PO PRN ×2 (15:57)
[2020-04-28] MEDS: VANCOMYCIN HCL 1,000 MG in DEXTROSE 5%-WATER 250 ML IV SCH (17:58)
[2020-04-28] MEDS ORDERED: VANCOMYCIN HCL INJ 1000 MG VIAL IV SCH (18:00)
[2020-04-28] MEDS: NORMAL SALINE 1000 ML 1,000 ML with POTASSIUM CHLORIDE 20 MEQ, MAGNESIUM SULFATE 8 MEQ,... IV SCH ×5 (18:19)
[2020-04-28] MEDS: PANTOPRAZOLE SODIUM 40 MG VIAL IV SCH (22:45)
--- NOTE | 2020-04-29 01:43 | RADIOLOGY REPORT (SQ) ---
CT CHEST WITHOUT INTRAVENOUS CONTRAST: 04/29/2020 12:40 AM CDT HISTORY: 64-year old patient with concern for aspiration. COMPARISON: None available TECHNIQUE: Serial 3 mm axial images were obtained from above the thoracic inlet to the upper abdomen without intravenous contrast administered. Sagittal and coronal reconstructions were also obtained and reviewed. This exam was performed according to our departmental dose-optimization program, which includes automated exposure control, adjustment of the mA and/or KV according to the patient's size and/or use of iterative reconstruction technique. FINDINGS: Both lobes of the thyroid appear homogenous with no suspicious nodules identified. The thoracic aorta is normal in size. The main pulmonary artery is enlarged and measures at least 3.1 cm in transverse dimension. The heart is enlarged. There is no evidence of a pericardial effusion. Coronary artery calcifications are seen. There is mild interlobular septal thickening, most pronounced at the apices. No pneumothorax is evident. There are bibasilar airspace opacities with small bilateral effusions. The central tracheobronchial tree is patent. No suspicious lung nodules are identified. No significant supraclavicular, axillary, or mediastinal lymphadenopathy is identified. Evaluation of the upper abdomen is limited by the lack of intravenous contrast. The visualized hepatic parenchyma is diffusely low in attenuation, suggesting underlying hepatic steatosis Review of the bone show no evidence of any suspicious lytic or blastic lesions. There are few remote left-sided anterior rib fractures present. IMPRESSION: There is interlobular septal thickening with bibasilar airspace opacities. This likely reflects some edema. There may also be superimposed infection. The main pulmonary artery is enlarged, which can be seen with pulmonary artery hypertension.
[2020-04-29] MEDS: VANCOMYCIN HCL 1,000 MG in DEXTROSE 5%-WATER 250 ML IV SCH ×3 (02:39→17:09)
[2020-04-29] MEDS: HYDRALAZINE HCL INJ/PF 20 MG/1 ML SDV IV PRN ×2 (03:42→08:24)
[2020-04-29 06:57] LABS: HEMATOCRIT 24.6 % (37.9-51.0); HEMOGLOBIN 8.4 g/dL (13.5-17.0); MEAN CORPUSCULAR HEMOGLOBIN 34.6 pg (27.0-33.4); MEAN CORPUSCULAR HGB CONC 34.1 g/dL (32.0-36.0); MEAN CORPUSCULAR VOLUME 102 fl (80-97); PLATELET COUNT 330 10^3/uL (150-450); RED BLOOD COUNT 2.43 10^6/uL (4.35-5.55); RED CELL DISTRIBUTION WIDTH 14.1 % (11.5-14.0); WHITE BLOOD COUNT 9.5 10^3/uL (4.0-10.5)
[2020-04-29] MEDS: HEPARIN SOD (PORCINE) 5,000 UNIT/ML 1 ML VIAL SUBCUT SCH ×3 (07:01→21:26)
[2020-04-29 07:22] LABS: ABSOLUTE LYMPHOCYTES# (MANUAL) 1.1 10^3/uL (0.5-4.7); ABSOLUTE MONOCYTES # (MANUAL) 1.6 10^3/uL (0.1-1.4); BAND NEUTROPHILS % (MANUAL) 3 % (3-5); BASOPHILS % (MANUAL) 0 % (0-2); EOSINOPHILS % (MANUAL) 3 % (0-6); LYMPHOCYTES % (MANUAL) 12 % (13-45); MONOCYTES % (MANUAL) 17 % (3-13); SEGMENTED NEUTROPHILS % (MAN) 65 % (42-78); TOTAL CELLS COUNTED 100
[2020-04-29 07:23] LABS: ANISOCYTOSIS 1+; PLATELET COMMENT ADEQUATE; POLYCHROMASIA 1+
--- NOTE | 2020-04-29 07:26 | PDOC PROGRESS REPORT ---
Subjective Progress Note for:: 04/28/20 Subjective:: Patient delirious in the ICU. Sodium is improving. He has been converted from IV to p.o. phenobarbital. Reason For Visit: M17.12 UNILATERAL PRIMARY OSTEOARTHRITIS, LEFT KNE Physical Exam Vital Signs: Temp Pulse Resp BP Pulse Ox 98.5 F 109 H 20 187/102 H 98 04/29/20 03:29 04/29/20 06:43 04/29/20 03:29 04/29/20 03:29 04/29/20 04:27 Intake & Output 04/28/20 04/29/20 04/30/20 06:59 06:59 06:59 Intake Total 1468 Output Total 1560 1345 Balance -1560 123 Weight 96.1 kg 95.6 kg Physical Exam: Delirious, not oriented, responds to painful stimuli. Does not appropriately respond to verbal questions. Left lower extremities grossly neurovascular intact Dressing with moderate spotting. Left lower extremity swelling appropriate for postoperative day 3 Results Laboratory Results: 04/28/20 04/29/20 14:38 06:10 Seg Neutrophils % Not Reportable Carbonic Acid 0.90 L HCO3/H2CO3 Ratio 22:1 ABG pH 7.44 ABG pCO2 29.8 L ABG pO2 53.2 L ABG HCO3 19.9 L ABG O2 Saturation 89.4 L ABG Base Excess -3.6 FiO2 0.5NC Impressions: Knee X-Ray 04/25/20 00:00 IMPRESSION: Status post total knee arthroplasty. Intraarticular and subcutaneous gas are not an unexpected finding in the immediate postoperative setting. No evidence of osseous injury. Chest CT 04/28/20 00:00 IMPRESSION: There is interlobular septal thickening with bibasilar airspace opacities. This likely reflects some edema. There may also be superimposed infection. The main pulmonary artery is enlarged, which can be seen with pulmonary artery hypertension. Chest X-Ray 04/28/20 00:00 IMPRESSION: Patchy airspace opacities in the lung bases with small left-sided pleural effusion. This may represent an infectious process such as pneumonia or viral pneumonia. Early pulmonary edema could have a similar appearance as well. Clinical correlation is required. Assessment & Plan - Diagnosis (1) Status post left knee replacement Is this a current diagnosis for this admission?: Yes Plan: -Weightbearing as tolerated, no precautions, encourage out of bed PATI for ADL training - PT/OT - Keep knee extended in bed, rolled towel under the ankle to obtain full extension -Patient was placed on heparin in the ICU due to lack of mobility and low p.o. intake. At this time he is tolerating p.o. and has been returned to p.o. intake of aspirin for DVT prophylaxis -multimodal pain management to avoid excessive narcotics, including gabapentin, tramadol, Toradol, acetaminophen. -Dressing with moderate spotting. Likely change tomorrow. (2) Hyponatremia Is this a current diagnosis for this admission?: Yes Plan: Continues to improve. Nephrology is consulted. Their recommendations are being followed. (3) Alcohol abuse Is this a current diagnosis for this admission?: Yes Plan: Following recommendations per the ICU and hospitalist consult. P.o. phenobarbital at this time - Time Time Spent with patient: Less than 15 minutes
[2020-04-29 07:31] LABS: ALBUMIN 2.7 g/dL (3.5-5.0); ALKALINE PHOSPHATASE 135 U/L (38-126); ANION GAP 11 (5-19); ASPARTATE AMINO TRANSFERASE 55 U/L (17-59); BILIRUBIN,DIRECT 0.2 mg/dL (0.0-0.4); BILIRUBIN,TOTAL 0.7 mg/dL (0.2-1.3); BLOOD UREA NITROGEN 11 mg/dL (7-20); CALCIUM 8.7 mg/dL (8.4-10.2); CARBON DIOXIDE 17 mmol/L (22-30); CHLORIDE 103 mmol/L (98-107); GLUCOSE 96 mg/dL (75-110); POTASSIUM 4.5 mmol/L (3.6-5.0); TOTAL PROTEIN 5.5 g/dL (6.3-8.2)
--- NOTE | 2020-04-29 07:31 | PDOC PROGRESS REPORT ---
Subjective Progress Note for:: 04/29/20 Subjective:: Patient is more verbal this morning. He recognizes me at the bedside and calls me by name. Still delirious and restrained but appears to be improving. Reason For Visit: M17.12 UNILATERAL PRIMARY OSTEOARTHRITIS, LEFT KNE Physical Exam Vital Signs: Temp Pulse Resp BP Pulse Ox 98.5 F 109 H 20 187/102 H 98 04/29/20 03:29 04/29/20 06:43 04/29/20 03:29 04/29/20 03:29 04/29/20 04:27 Intake & Output 04/28/20 04/29/20 04/30/20 06:59 06:59 06:59 Intake Total 1468 Output Total 1560 1345 Balance -1560 123 Weight 96.1 kg 95.6 kg Physical Exam: No acute distress, AAO x1, not aware of place or time Left lower extremity -Pulses 2+ distally -Compartments soft -Sensation grossly intact to L3-4-5 S1 -Motor grossly intact to EHL TA gastroc and quad -Mild to moderate swelling in the left ankle. -Moderate spotting in the postoperative dressing Results Laboratory Results: 04/29/20 06:10 04/28/20 04/29/20 14:38 06:10 WBC 9.5 RBC 2.43 L Hgb 8.4 L Hct 24.6 L MCV 102 H MCH 34.6 H MCHC 34.1 RDW 14.1 H Plt Count 330 Seg Neutrophils % Not Reportable Carbonic Acid 0.90 L HCO3/H2CO3 Ratio 22:1 ABG pH 7.44 ABG pCO2 29.8 L ABG pO2 53.2 L ABG HCO3 19.9 L ABG O2 Saturation 89.4 L ABG Base Excess -3.6 FiO2 0.5NC Impressions: Knee X-Ray 04/25/20 00:00 IMPRESSION: Status post total knee arthroplasty. Intraarticular and subcutaneous gas are not an unexpected finding in the immediate postoperative setting. No evidence of osseous injury. Chest CT 04/28/20 00:00 IMPRESSION: There is interlobular septal thickening with bibasilar airspace opacities. This likely reflects some edema. There may also be superimposed infection. The main pulmonary artery is enlarged, which can be seen with pulmonary artery hypertension. Chest X-Ray 04/28/20 00:00 IMPRESSION: Patchy airspace opacities in the lung bases with small left-sided pleural effusion. This may represent an infectious process such as pneumonia or viral pneumonia. Early pulmonary edema could have a similar appearance as well. Clinical correlation is required. Assessment & Plan - Diagnosis (1) Status post left knee replacement Is this a current diagnosis for this admission?: Yes Plan: -Weightbearing as tolerated, no precautions, encourage out of bed PATI for ADL training - PT/OT -encourage out of bed - Keep knee extended in bed, rolled towel under the ankle to obtain full extension -Aspirin 325 daily for DVT prophylaxis, need to encourage out of bed as soon as patient is mentally capable. -multimodal pain management to avoid excessive narcotics, including gabapentin, tramadol, Toradol, acetaminophen. -Change dressing today, may remove the bulky Ethan overwrap (2) Hyponatremia Is this a current diagnosis for this admission?: Yes Plan: Continues to improve, 130 this morning. Nephrology has been consulted and their recommendations are being followed. (3) Alcohol abuse Is this a current diagnosis for this admission?: Yes Plan: Appears to be improving at this time. Patient is more alert than he has been over the last 3 exams. We will continue to follow recommendations per hospitalist consult -Appreciate the hospitalist continued care - Time Time Spent with patient: Less than 15 minutes
[2020-04-29] MEDS ORDERED: FUROSEMIDE INJ/PF 40 MG/4 ML SDV IV ONE (08:00)
--- NOTE | 2020-04-29 08:44 | PDOC PROGRESS REPORT ---
Subjective Progress Note for:: 04/29/20 Subjective:: 64 year old male had a left knee arthroplasty for primary osteoarthritis end- stage. Medical consult was called for management of uncontrolled hypertension. 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 04/28/2020-patient is transferred to medical from ICU. Dr. Lemus requested enzo nsultation for medical management. Patient went to ICU with hyponatremia of 119 and possible need for Precedex drip. Patient was given hypertonic saline and normal saline sodium came up to 130.7. Patient was given IV phenobarbital yesterday for alcohol withdrawal symptoms now on p.o. phenobarbital. Patient is in restraints at the time of examination. Waking up with chest. He has a low- grade fever of 99.9. Plan is to move him to [facility] with telemetry for close monitoring. Stat chest x-ray and ABG are requested. Most of the medications are changed to IV at this time. -patient looks drowsy and lethargic. Looks slightly better compared to yesterday. Plan is to continue to keep him n.p.o. blood pressures are very high with systolic around 180, patient to give his hydralazine IV 1 dose of Lasix 40 mg IV [address] chest indicates opacifications started on IV Rocephin 1 vancomycin. Pulse ox is 98% 2 L. In the chemistry serum sodium is 130 stable. Plan is to continue to closely monitor him on regular basis. Watch for the DTs. Reason For Visit: M17.12 UNILATERAL PRIMARY OSTEOARTHRITIS, LEFT KNE Physical Exam Vital Signs: Temp Pulse Resp BP Pulse Ox 98.1 F 110 H 24 H 183/104 H 96 04/29/20 08:23 04/29/20 08:23 04/29/20 08:23 04/29/20 08:23 04/29/20 08:23 Intake & Output 04/28/20 04/29/20 04/30/20 06:59 06:59 06:59 Intake Total 1468 Output Total 1560 1345 Balance -1560 123 Weight 96.1 kg 95.6 kg General appearance: PRESENT: no acute distress, well-developed Head exam: PRESENT: atraumatic Eye exam: PRESENT: PERRLA Ear exam: PRESENT: normal external ear exam Mouth exam: PRESENT: neck supple Teeth exam: PRESENT: poor dentation Neck exam: ABSENT: carotid bruit, JVD, lymphadenopathy, thyromegaly Respiratory exam: PRESENT: decreased breath sounds Cardiovascular exam: PRESENT: RRR. ABSENT: diastolic murmur, rubs, systolic murmur GI/Abdominal exam: PRESENT: normal bowel sounds, soft. ABSENT: distended, guarding, mass, organolmegaly, rebound, tenderness Rectal exam: PRESENT: deferred Extremities exam: PRESENT: full ROM. ABSENT: calf tenderness, clubbing, pedal edema Neurological exam: PRESENT: alert, awake, oriented to person, oriented to place, oriented to time, oriented to situation, CN II-XII grossly intact. ABSENT: motor sensory deficit Psychiatric exam: PRESENT: appropriate affect, normal mood. ABSENT: homicidal ideation, suicidal ideation Results Laboratory Results: 04/29/20 06:10 04/29/20 06:34 04/28/20 04/29/20 04/29/20 14:38 06:10 06:34 WBC 9.5 RBC 2.43 L Hgb 8.4 L Hct 24.6 L MCV 102 H MCH 34.6 H MCHC 34.1 RDW 14.1 H Plt Count 330 Seg Neutrophils % Not Reportable Carbonic Acid 0.90 L HCO3/H2CO3 Ratio 22:1 ABG pH 7.44 ABG pCO2 29.8 L ABG pO2 53.2 L ABG HCO3 19.9 L ABG O2 Saturation 89.4 L ABG Base Excess -3.6 FiO2 0.5NC Sodium 130.8 L Potassium 4.5 Chloride 103 Carbon Dioxide 17 L Anion Gap 11 BUN 11 Creatinine 0.59 Est GFR ( Amer) > 60 Glucose 96 Calcium 8.7 Magnesium 1.9 Total Bilirubin 0.7 AST 55 Alkaline Phosphatase 135 H Total Protein 5.5 L Albumin 2.7 L Impressions: Knee X-Ray 04/25/20 00:00 IMPRESSION: Status post total knee arthroplasty. Intraarticular and subcutaneous gas are not an unexpected finding in the immediate postoperative setting. No evidence of osseous injury. Chest CT 04/28/20 00:00 IMPRESSION: There is interlobular septal thickening with bibasilar airspace opacities. This likely reflects some edema. There may also be superimposed infection. The main pulmonary artery is enlarged, which can be seen with pulmonary artery hypertension. Chest X-Ray 04/28/20 00:00 IMPRESSION: Patchy airspace opacities in the lung bases with small left-sided pleural effusion. This may represent an infectious process such as pneumonia or viral pneumonia. Early pulmonary edema could have a similar appearance as well. Clinical correlation is required. Assessment and Plan - Diagnosis (1) Acute metabolic encephalopathy Is this a current diagnosis for this admission?: Yes Plan: 04/26/2020-altered mental status acute metabolic encephalopathy most likely multifactorial. It could be alcohol withdrawal symptoms, it can be hyponatremia. Patient is going to the unit hopefully he will be on a Precedex drip and 3% hypertonic saline 04/28/2020-patient is sedated responding only to sternal rubs. To discontinue phenobarbital to discontinue other sedatives at this time. Plan is to change most of the medications to IV. Blood sugar is 76 to start him on a D5 normal saline 50 cc/h. GI prophylaxis DVT prophylaxis initiated. Aspiration fall seizure precautions requested. To continue placement restraints. Started on Ativan 2 mg IV every 2 hours as needed for agitation and DTs. To continue to keep Ulrich's catheter at this time. To keep him n.p.o. at this time.Chest x- ray and ABG are requested. 04/29/20-patient mental status looks slightly better compared to yesterday. Plan is to continue to keep him n.p.o. to prevent aspiration pneumonia. On hypoglycemia protocol to prevent low blood sugars. Lab work is stable. Speech consult was requested. Aspiration seizure precautions are requested. Acute metabolic encephalopathy most likely multifactorial including alcohol dependency, oversedation with phenobarbital. (2) Hyponatremia Is this a current diagnosis for this admission?: Yes Plan: Chronic hyponatremia, appears to be back at baseline. Add salt tabs to p.o. diet. May transfer back to the floor 04/28/2020-serum sodium is 130.7 patient has history of chronic alcohol abuse most likely this is his baseline. Plan is to closely monitor the labs every 12 hours. 04/29/2020-serum sodium is 130.8. Blood pressure is 180/90. Given IV hydralazine 10 mg 1 dose and Lasix 40 mg IV one dose. (3) HTN (hypertension) Is this a current diagnosis for this admission?: Yes Plan: Restart carvedilol 3.125 mg p.o. twice daily. Will need attention to postoperative pain control. 04/28/2020-blood pressure is 176/92. On IV hydralazine 10 mg every 6 hours as needed for systolic blood pressure more than 170. 04/29/2020-latest blood pressure is 187/102 on IV hydralazine as needed. To discontinue IV fluids. Given Lasix 40 mg 1 dose. Plan is to closely monitor him on regular basis. (4) Alcohol abuse Is this a current diagnosis for this admission?: Yes Plan: 04/25/2020-patient given history of heavy alcohol use close to drinking 1 gallon of rum on a daily basis. Started on IV Ativan 2 mg every 4 hours as needed for agitation. To watch for the DTs. To start him on IV thiamine and folic acid. 10/27/2019-patient is a heavy alcohol user and looks like he is going to DTs from last night. He was on as needed Valium as needed Ativan. I think patient needs to be on Precedex drip in the unit. 04/28/2020-patient has history of heavy alcohol use presently n.p.o. for nerve. Plan is to discontinue phenobarbital started on IV Ativan 2 mg every 2 hours as needed for agitation and to prevent DTs. 04/29/2020-patient has history of heavy alcohol use and IV Ativan as needed. (5) Fibrillary glomerulonephritis Is this a current diagnosis for this admission?: No Plan: 04/25/2020-patient has a fibrillary GN follows with Dr. Briggs in [place]. No problems with urination.
[2020-04-29] MEDS: ASPIRIN 325 MG TABLET PO SCH (09:00)
[2020-04-29] MEDS: PANTOPRAZOLE SODIUM 40 MG VIAL IV SCH ×2 (09:08→21:27)
[2020-04-29] MEDS: CEFTRIAXONE 1 GM/D5W RTU 1 GM/50 ML RTUPB IV SCH (09:19)
[2020-04-29] MEDS: CETIRIZINE 10 MG TABLET PO SCH (09:59)
--- NOTE | 2020-04-29 15:36 | Progress Note ---
Provider Note Provider Note: Patient is potentially developing a pneumonia. Reports from nursing staff are that he potentially aspirated yesterday. I was not contacted yesterday when he was transferred from ICU to 4th floor. The nursing staff on the 4th floor assured me that they would keep a close eye on him however I would have preferred [facility]. I was told on Wednesday that his destination from ICU was going to be [facility] and was not contacted in regards to the change of disposition. I have discussed this with the hospitalist who agrees. Given his increased level of care, the hospitalist plans to transfer the patient to his service. I will continue to follow Mr. Juan closely.
[2020-04-29] MEDS: NORMAL SALINE 1000 ML 1,000 ML with POTASSIUM CHLORIDE 20 MEQ, MAGNESIUM SULFATE 8 MEQ,... IV SCH ×5 (17:08)
--- NOTE | 2020-04-29 22:29 | XCELERA REPORT ---
[address] [address] Transthoracic Echocardiogram Report Name: STELLA FERRARI Age: 64 yrs Gender: Male : 1955 Patient Status: Inpatient Patient Location: [facility]^A Study Date: 04/29/2020 06:37 PM History: CHF Height: 68 in Weight: 211 lb BSA: 2.1 m2 Procedure: A complete two-dimensional transthoracic echocardiogram was performed (2D, M-mode, spectral and color flow Doppler). Reason For Study: chf Previous Evaluation: A previous study was performed on 01/09/2014. History: CHF. Ordering Physician: ROBIN DANIELSON Performed By: Ivelisse Jackson Interpretation Summary Due to the poor quality of the echocardiogram, an assessment of left ventricular ejection fraction cannot be made. Best estimate is 30-35%. The right ventricle is normal in size and function. There is a trace amount of mitral regurgitation There is no aortic valve stenosis There is a trace amount of tricuspid regurgitation There is moderate pulmonary hypertension by echo There is no pericardial effusion. MMode/2D Measurements & Calculations RVDd: 3.1 cm LVIDd: 4.8 cm FS: 31.8 % Ao root diam: 3.0 cm IVSd: 0.98 cm LVIDs: 3.3 cm EDV(Teich): Ao root area: LVPWd: 1.0 cm 106.8 ml 6.9 cm2 ESV(Teich): 43.0 mlLA dimension: 4.1 cm EF(Teich): 59.8 % LVLd ap4: 6.6 cm SV(MOD-sp4): EDV(MOD-sp4): 26.0 ml 76.0 ml LVLs ap4: 6.5 cm ESV(MOD-sp4): 50.0 ml EF(MOD-sp4): 34.2 % Doppler Measurements & Calculations MV E max nidhi: MV P1/2t max nidhi: Ao V2 max: LV V1 max P.4 cm/sec 83.1 cm/sec 80.6 cm/sec 1.8 mmHg MV A max nidhi: MV P1/2t: 55.2 msec Ao max P.6 mmHg LV V1 max: 35.9 cm/sec MVA(P1/2t): 4.0 cm2 67.5 cm/sec MV E/A: 2.3 MV dec slope: 441.0 cm/sec2 MV dec time: 0.22 sec PA V2 max: TR max nidhi: MV P1/2t-pr_phl: 65.1 cm/sec 314.9 cm/sec 55.2 msec PA max P.7 mmHgTR max P.7 mmHg Left Ventricle The left ventricle is grossly normal size. There is mild concentric left ventricular hypertrophy. Due to the poor quality of the echocardiogram, an assessment of left ventricular ejection fraction cannot be made. Best estimate is 30-35%. LV diastolic function not assessed. There is distal septal wall moderate hypokinesis. There is anterior wall moderate hypokinesis. There is mid to distal septal wall moderate hypokinesis. Right Ventricle The right ventricle is normal in size and function. Atria The right atrium is normal. The left atrium is mildly dilated. There is no Doppler evidence for an interatrial shunt. Mitral Valve The mitral valve is grossly normal. There is a trace amount of mitral regurgitation. Aortic Valve The aortic valve opens well. The aortic valve is not well visualized secondary to technical limitations. There is no aortic valve stenosis. No aortic regurgitation is present. Tricuspid Valve The tricuspid valve is not well visualized, but is grossly normal. There is no tricuspid stenosis. There is a trace amount of tricuspid regurgitation. Right ventricular systolic pressure is estimated to be elevated at 40-50mmHg. There is moderate pulmonary hypertension by echo. Great Vessels The inferior vena cava appeared dilated and decreased < 50% with respiration (RAP 15-20 mmHg). Effusions There is no pericardial effusion. : ROBIN DANIELSON Anil
[2020-04-30] MEDS: VANCOMYCIN HCL 1,000 MG in DEXTROSE 5%-WATER 250 ML IV SCH ×3 (01:39→17:36)
[2020-04-30] MEDS: HEPARIN SOD (PORCINE) 5,000 UNIT/ML 1 ML VIAL SUBCUT SCH ×3 (05:24→21:56)
[2020-04-30 06:35] LABS: ALBUMIN 2.8 g/dL (3.5-5.0); ALKALINE PHOSPHATASE 129 U/L (38-126); ANION GAP 12 (5-19); ASPARTATE AMINO TRANSFERASE 34 U/L (17-59); BILIRUBIN,DIRECT 0.1 mg/dL (0.0-0.4); BILIRUBIN,TOTAL 0.5 mg/dL (0.2-1.3); BLOOD UREA NITROGEN 16 mg/dL (7-20); CALCIUM 8.7 mg/dL (8.4-10.2); CARBON DIOXIDE 18 mmol/L (22-30); CHLORIDE 102 mmol/L (98-107); GLUCOSE 145 mg/dL (75-110); POTASSIUM 4.9 mmol/L (3.6-5.0); TOTAL PROTEIN 5.7 g/dL (6.3-8.2)
[2020-04-30 06:57] LABS: HEMATOCRIT 25.7 % (37.9-51.0); HEMOGLOBIN 8.8 g/dL (13.5-17.0); MEAN CORPUSCULAR HEMOGLOBIN 34.5 pg (27.0-33.4); MEAN CORPUSCULAR HGB CONC 34.3 g/dL (32.0-36.0); MEAN CORPUSCULAR VOLUME 101 fl (80-97); PLATELET COUNT 405 10^3/uL (150-450); RED BLOOD COUNT 2.55 10^6/uL (4.35-5.55); RED CELL DISTRIBUTION WIDTH 13.8 % (11.5-14.0); WHITE BLOOD COUNT 10.4 10^3/uL (4.0-10.5)
[2020-04-30 07:07] LABS: ABSOLUTE LYMPHOCYTES# (MANUAL) 0.8 10^3/uL (0.5-4.7); ABSOLUTE MONOCYTES # (MANUAL) 0.1 10^3/uL (0.1-1.4); BASOPHILS % (MANUAL) 1 % (0-2); EOSINOPHILS % (MANUAL) 0 % (0-6); LYMPHOCYTES % (MANUAL) 8 % (13-45); MONOCYTES % (MANUAL) 1 % (3-13); SEGMENTED NEUTROPHILS % (MAN) 90 % (42-78); TOTAL CELLS COUNTED 100
[2020-04-30 07:09] LABS: ANISOCYTOSIS SLIGHT; BURR CELLS SLIGHT; PLATELET COMMENT ADEQUATE; POIKILOCYTOSIS SLIGHT; SCHISTOCYTES SLIGHT; TOXIC GRANULATION 1+
--- NOTE | 2020-04-30 08:33 | PDOC PROGRESS REPORT ---
Subjective Progress Note for:: 04/30/20 Subjective:: 64 year old male had a left knee arthroplasty for primary osteoarthritis end- stage. Medical consult was called for management of uncontrolled hypertension. 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 04/28/2020-patient is transferred to medical from ICU. Dr. Lemus requested enzo nsultation for medical management. Patient went to ICU with hyponatremia of 119 and possible need for Precedex drip. Patient was given hypertonic saline and normal saline sodium came up to 130.7. Patient was given IV phenobarbital yesterday for alcohol withdrawal symptoms now on p.o. phenobarbital. Patient is in restraints at the time of examination. Waking up with chest. He has a low- grade fever of 99.9. Plan is to move him to [facility] with telemetry for close monitoring. Stat chest x-ray and ABG are requested. Most of the medications are changed to IV at this time. 04/29/20-patient looks drowsy and lethargic. Looks slightly better compared to yesterday. Plan is to continue to keep him n.p.o. blood pressures are very high with systolic around 180, patient to give his hydralazine IV 1 dose of Lasix 40 mg IV [address] chest indicates opacifications started on IV Rocephin 1 vancomycin. Pulse ox is 98% 2 L. In the chemistry serum sodium is 130 stable. Plan is to continue to closely monitor him on regular basis. Watch for the DTs. 04/30/2020-patient is still lethargic less responsive. He is n.p.o. Plan is to repeat the chest x-ray and CT head to rule out stroke. Vital signs are stable blood pressure is 146/92 temperature 97.7. Pulse ox is 96% 2 L. WBC count is 10,400. Hemoglobin is 8.8. Blood sugar is 145. Sodium is improved to 131.8. Blood cultures are negative so far patient is on IV Rocephin and vancomycin. Creatinine 0.84 and is to repeat the chest x-ray and CT head today. To keep him n.p.o. for now. Agree to change the patient status to hospitalist services . Reason For Visit: M17.12 UNILATERAL PRIMARY OSTEOARTHRITIS, LEFT KNE Physical Exam Vital Signs: Temp Pulse Resp BP Pulse Ox 98.1 F 102 H 14 157/83 H 97 04/30/20 07:35 04/30/20 07:35 04/30/20 07:35 04/30/20 07:35 04/30/20 07:35 Intake & Output 04/29/20 04/30/20 05/01/20 06:59 06:59 06:59 Intake Total 1468 1823 Output Total 1345 2700 Balance 123 -877 Weight 95.6 kg 96.5 kg General appearance: PRESENT: well-developed, other - Comfortably in the bed on supplemental oxygen waking up on calling and drifting back to sleep. Head exam: PRESENT: atraumatic Eye exam: PRESENT: conjunctiva pink, other - Constricted and reactive. Ear exam: PRESENT: normal external ear exam Mouth exam: PRESENT: neck supple Teeth exam: PRESENT: poor dentation Neck exam: ABSENT: carotid bruit, JVD, lymphadenopathy, thyromegaly Respiratory exam: PRESENT: decreased breath sounds Cardiovascular exam: PRESENT: RRR. ABSENT: diastolic murmur, rubs, systolic murmur GI/Abdominal exam: PRESENT: normal bowel sounds, soft. ABSENT: distended, guarding, mass, organolmegaly, rebound, tenderness Rectal exam: PRESENT: deferred Extremities exam: PRESENT: full ROM. ABSENT: calf tenderness, clubbing, pedal edema Neurological exam: PRESENT: CN II-XII grossly intact, other - Lethargic less responsive. no focal deficits present. Skin exam: PRESENT: dry, intact, warm. ABSENT: cyanosis, rash Results Laboratory Results: 04/30/20 05:43 04/30/20 05:43 04/29/20 04/30/20 04/30/20 09:38 05:43 05:43 WBC 10.4 RBC 2.55 L Hgb 8.8 L Hct 25.7 L MCV 101 H MCH 34.5 H MCHC 34.3 RDW 13.8 Plt Count 405 Seg Neutrophils % Not Reportable Sodium 131.8 L Potassium 4.9 Chloride 102 Carbon Dioxide 18 L Anion Gap 12 BUN 16 Creatinine 0.84 Est GFR ( Amer) > 60 Glucose 145 H Calcium 8.7 Magnesium 2.0 Total Bilirubin 0.5 AST 34 Alkaline Phosphatase 129 H Ammonia 15.6 Total Protein 5.7 L Albumin 2.8 L Impressions: Knee X-Ray 04/25/20 00:00 IMPRESSION: Status post total knee arthroplasty. Intraarticular and subcutaneous gas are not an unexpected finding in the immediate postoperative setting. No evidence of osseous injury. Chest CT 04/28/20 00:00 IMPRESSION: There is interlobular septal thickening with bibasilar airspace opacities. This likely reflects some edema. There may also be superimposed infection. The main pulmonary artery is enlarged, which can be seen with pulmonary artery hypertension. Chest X-Ray 04/28/20 00:00 IMPRESSION: Patchy airspace opacities in the lung bases with small left-sided pleural effusion. This may represent an infectious process such as pneumonia or viral pneumonia. Early pulmonary edema could have a similar appearance as well. Clinical correlation is required. Assessment and Plan - Diagnosis (1) Acute metabolic encephalopathy Is this a current diagnosis for this admission?: Yes Plan: 04/26/2020-altered mental status acute metabolic encephalopathy most likely multifactorial. It could be alcohol withdrawal symptoms, it can be hyponatremia. Patient is going to the unit hopefully he will be on a Precedex drip and 3% hypertonic saline 04/28/2020-patient is sedated responding only to sternal rubs. To discontinue phenobarbital to discontinue other sedatives at this time. Plan is to change most of the medications to IV. Blood sugar is 76 to start him on a D5 normal saline 50 cc/h. GI prophylaxis DVT prophylaxis initiated. Aspiration fall seizure precautions requested. To continue placement restraints. Started on Ativan 2 mg IV every 2 hours as needed for agitation and DTs. To continue to keep Ulrich's catheter at this time. To keep him n.p.o. at this time.Chest x- ray and ABG are requested. 04/29/20-patient mental status looks slightly better compared to yesterday. Plan is to continue to keep him n.p.o. to prevent aspiration pneumonia. On hypoglycemia protocol to prevent low blood sugars. Lab work is stable. Speech consult was requested. Aspiration seizure precautions are requested. Acute metabolic encephalopathy most likely multifactorial including alcohol dependency, oversedation with phenobarbital. 04/30/2020-patient is still lethargic less responsive. Vital signs are stable. Acute metabolic and colopathy multifactorial. Including alcohol dependency, oversedation with the phenobarbital. To check the phenobarbital levels today. Repeat chest x-ray and a CT head today. Ammonia level is 15.6 within normal limits. (2) Hyponatremia Is this a current diagnosis for this admission?: Yes Plan: Chronic hyponatremia, appears to be back at baseline. Add salt tabs to p.o. diet. May transfer back to the floor 04/28/2020-serum sodium is 130.7 patient has history of chronic alcohol abuse most likely this is his baseline. Plan is to closely monitor the labs every 12 hours. 04/29/2020-serum sodium is 130.8. Blood pressure is 180/90. Given IV hydralazine 10 mg 1 dose and Lasix 40 mg IV one dose. 04/30/2020-serum sodium is 131.8. Patient has chronic hyponatremia most likely secondary to chronic alcohol abuse. pt may have underlying liver failure. (3) HTN (hypertension) Is this a current diagnosis for this admission?: Yes Plan: Restart carvedilol 3.125 mg p.o. twice daily. Will need attention to postoperative pain control. 04/28/2020-blood pressure is 176/92. On IV hydralazine 10 mg every 6 hours as needed for systolic blood pressure more than 170. 04/29/2020-latest blood pressure is 187/102 on IV hydralazine as needed. To discontinue IV fluids. Given Lasix 40 mg 1 dose. Plan is to closely monitor him on regular basis. 04/30/2020-blood pressure today is 146/90. Stable. Patient is n.p.o. Plan is to closely monitor the blood pressures on regular basis. (4) Alcohol abuse Is this a current diagnosis for this admission?: Yes Plan: 04/25/2020-patient given history of heavy alcohol use close to drinking 1 gallon of rum on a daily basis. Started on IV Ativan 2 mg every 4 hours as needed for agitation. To watch for the DTs. To start him on IV thiamine and folic acid. 10/27/2019-patient is a heavy alcohol user and looks like he is going to DTs from last night. He was on as needed Valium as needed Ativan. I think patient needs to be on Precedex drip in the unit. 04/28/2020-patient has history of heavy alcohol use presently n.p.o. for nerve. Plan is to discontinue phenobarbital started on IV Ativan 2 mg every 2 hours as needed for agitation and to prevent DTs. 04/29/2020-patient has history of heavy alcohol use and IV Ativan as needed. 04/30/2020-ammonia level is 15.6. Patient is on IV Ativan as needed to prevent DTs. (5) Fibrillary glomerulonephritis Is this a current diagnosis for this admission?: No Plan: 04/25/2020-patient has a fibrillary GN follows with Dr. Briggs in [place]. No problems with urination. (6) Aspiration pneumonia Is this a current diagnosis for this admission?: Yes Plan: 04/30/2020-patient chest x-ray indicate bilateral basilar opacifications most likely aspiration pneumonia. Blood cultures are negative so far. Patient is on IV Rocephin and IV vancomycin. Plan is to repeat the x-ray today. Pulse ox is 96% on 2 L.
--- NOTE | 2020-04-30 09:19 | RADIOLOGY REPORT (SQ) ---
EXAM DESCRIPTION: CT HEAD WITHOUT IMAGES COMPLETED DATE/TIME: 04/30/2020 8:52 am REASON FOR STUDY: altered mental status M17.12 UNILATERAL PRIMARY OSTEOARTHRITIS, LEFT KNEE COMPARISON: None. TECHNIQUE: Axial images acquired through the brain without intravenous contrast. Images reviewed wi th bone, brain and subdural windows. Additional sagittal and coronal reconstructions were generated. Images stored on PACS. All CT scanners at this facility use dose modulation, iterative reconstruction, and/or weight based d osing when appropriate to reduce radiation dose to as low as reasonably achievable (ALARA). [facility]: Dose Right [facility]: CareDose [facility]: Dose Right [facility]: Teradose 4D [facility]: Knimbus RADIATION DOSE: CT Rad equipment meets quality standard of care and radiation dose reduction techniq ues were employed. CTDIvol: 48.7 mGy. DLP: 930 mGy-cm. mGy. LIMITATIONS: None. FINDINGS: VENTRICLES: Normal size and contour. CEREBRUM: No masses. No hemorrhage. No midline shift. No evidence for acute infarction. Normal gra y/white matter differentiation. No areas of low density in the white matter. CEREBELLUM: No masses. No hemorrhage. No alteration of density. No evidence for acute infarction. EXTRAAXIAL SPACES: No fluid collections. No masses. ORBITS AND GLOBE: No intra- or extraconal masses. Post cataract surgery CALVARIUM: No fracture. PARANASAL SINUSES: No fluid or mucosal thickening. SOFT TISSUES: No mass or hematoma. OTHER: No other significant finding. IMPRESSION: NORMAL BRAIN CT WITHOUT CONTRAST. EVIDENCE OF ACUTE STROKE: NO. COMMENT: Quality ID # [id number]: Final reports with documentation of one or more dose reduction techniques (e.g., Automated exposure control, adjustment of the mA and/or kV according to patient size, use of iterative reconstruction technique) TECHNICAL DOCUMENTATION: JOB ID: [id number] 2010 [employer]- All Rights Reserved Reading location - IP/workstation name: [email or web address]
[2020-04-30 10:13] LABS: VANCOMYCIN,TROUGH 19.7 ug/mL (5.0-20.0)
--- NOTE | 2020-04-30 10:27 | RADIOLOGY REPORT (SQ) ---
EXAM DESCRIPTION: CHEST SINGLE VIEW IMAGES COMPLETED DATE/TIME: 04/30/2020 8:59 am REASON FOR STUDY: dyspnea COMPARISON: Chest films 04/28/2020 CT chest 04/29/2020 EXAM PARAMETERS: NUMBER OF VIEWS: One view. TECHNIQUE: Single frontal radiographic view of the chest acquired. RADIATION DOSE: NA LIMITATIONS: None. FINDINGS: LUNGS AND PLEURA: Hazy opacity over the right and left chest from small pleural effusions. There is diffuse pulmonary vascular congestion with Jh lines from fluid overload or congestive fa ilure. No pneumothorax MEDIASTINUM AND HILAR STRUCTURES: No masses. Contour normal. HEART AND VASCULAR STRUCTURES: Heart normal in size. Normal vasculature. BONES: No acute findings. HARDWARE: None in the chest. OTHER: No other significant finding. IMPRESSION: Fluid overload or congestive failure, more prominent than on plain films from 04/28/2020 TECHNICAL DOCUMENTATION: JOB ID: [id number] 2010 [employer]- All Rights Reserved Reading location - IP/workstation name: [email or web address]
[2020-04-30] MEDS: PANTOPRAZOLE SODIUM 40 MG VIAL IV SCH ×2 (10:30→21:56)
[2020-04-30] MEDS: CEFTRIAXONE 1 GM/D5W RTU 1 GM/50 ML RTUPB IV SCH (10:30)
[2020-04-30] MEDS: CETIRIZINE 10 MG TABLET PO SCH (10:40)
[2020-04-30] MEDS: ASPIRIN 325 MG TABLET PO SCH (10:40)
[2020-04-30] MEDS ORDERED: FUROSEMIDE INJ/PF 40 MG/4 ML SDV IV ONE (11:39)
--- NOTE | 2020-04-30 16:48 | PDOC PROGRESS REPORT ---
Subjective Progress Note for:: 04/30/20 Subjective:: Patient seen this afternoon. Still delirious. Still not responding appropriately to verbal questions. Moans unintelligible attempts at communication. Nursing staff says he does appear more alert now than he has all day. Reason For Visit: M17.12 UNILATERAL PRIMARY OSTEOARTHRITIS, LEFT KNE Physical Exam Vital Signs: Temp Pulse Resp BP Pulse Ox 98.4 F 103 H 15 129/85 H 100 04/30/20 15:18 04/30/20 15:18 04/30/20 15:18 04/30/20 15:18 04/30/20 15:18 Intake & Output 04/29/20 04/30/20 05/01/20 06:59 06:59 06:59 Intake Total 1468 1823 1318 Output Total 1345 2700 150 Balance 123 -877 1168 Weight 95.6 kg 96.5 kg Physical Exam: No acute distress, AAO x1, not aware of place or time Left lower extremity -Pulses 2+ distally -Compartments soft -Sensation grossly intact to L3-4-5 S1 -Motor grossly intact to EHL TA gastroc and quad -Mild to moderate swelling in the left ankle. -Moderate spotting in the postoperative dressing Results Laboratory Results: 04/30/20 05:43 04/30/20 05:43 04/30/20 04/30/20 05:43 05:43 WBC 10.4 RBC 2.55 L Hgb 8.8 L Hct 25.7 L MCV 101 H MCH 34.5 H MCHC 34.3 RDW 13.8 Plt Count 405 Seg Neutrophils % Not Reportable Sodium 131.8 L Potassium 4.9 Chloride 102 Carbon Dioxide 18 L Anion Gap 12 BUN 16 Creatinine 0.84 Est GFR ( Amer) > 60 Glucose 145 H Calcium 8.7 Magnesium 2.0 Total Bilirubin 0.5 AST 34 Alkaline Phosphatase 129 H Total Protein 5.7 L Albumin 2.8 L Impressions: Knee X-Ray 04/25/20 00:00 IMPRESSION: Status post total knee arthroplasty. Intraarticular and subcutaneous gas are not an unexpected finding in the immediate postoperative setting. No evidence of osseous injury. Chest CT 04/28/20 00:00 IMPRESSION: There is interlobular septal thickening with bibasilar airspace opacities. This likely reflects some edema. There may also be superimposed infection. The main pulmonary artery is enlarged, which can be seen with pulmonary artery hypertension. Chest X-Ray 04/30/20 00:00 IMPRESSION: Fluid overload or congestive failure, more prominent than on plain films from 04/28/[address] 04/30/20 00:00 IMPRESSION: NORMAL BRAIN CT WITHOUT CONTRAST. EVIDENCE OF ACUTE STROKE: NO. Assessment & Plan - Diagnosis (1) Status post left knee replacement Is this a current diagnosis for this admission?: Yes Plan: -Weightbearing as tolerated, no precautions, encourage out of bed PATI for ADL training - PT/OT -encourage out of bed - Keep knee extended in bed, rolled towel under the ankle to obtain full extension -Will defer DVT prophylaxis to medicine team at this point. His far enough out from surgery to tolerate daily Lovenox, suggest low-dose -multimodal pain management to avoid excessive narcotics, including gabapentin, tramadol, Toradol, acetaminophen. -Dry dressing changes as needed -May discontinue the cold machine. (2) Hyponatremia Is this a current diagnosis for this admission?: Yes (3) Alcohol abuse Is this a current diagnosis for this admission?: Yes - Time Time Spent with patient: Less than 15 minutes
[2020-05-01] MEDS: VANCOMYCIN HCL 1,000 MG in DEXTROSE 5%-WATER 250 ML IV SCH ×2 (01:34→15:33)
[2020-05-01] MEDS: HEPARIN SOD (PORCINE) 5,000 UNIT/ML 1 ML VIAL SUBCUT SCH ×3 (05:16→21:32)
[2020-05-01] MEDS ORDERED: FLUMAZENIL INJ 0.5 MG/5 ML VIAL ONE ×3 (05:37→08:24)
[2020-05-01 05:43] LABS: HEMATOCRIT 24.9 % (37.9-51.0); HEMOGLOBIN 8.6 g/dL (13.5-17.0); MEAN CORPUSCULAR HEMOGLOBIN 34.4 pg (27.0-33.4); MEAN CORPUSCULAR HGB CONC 34.6 g/dL (32.0-36.0); MEAN CORPUSCULAR VOLUME 100 fl (80-97); PLATELET COUNT 412 10^3/uL (150-450); RED CELL DISTRIBUTION WIDTH 14.3 % (11.5-14.0); WHITE BLOOD COUNT 11.2 10^3/uL (4.0-10.5)
[2020-05-01] MEDS ORDERED: DILTIAZEM HCL INJ 25 MG/5 ML VIAL ONE ×2 (05:45→08:24)
[2020-05-01] MEDS ORDERED: DILTIAZEM HCL/D5W 125 MG/125 ML RTUINJ IV ONE (05:50)
[2020-05-01 06:04] LABS: ALBUMIN 2.4 g/dL (3.5-5.0); ALKALINE PHOSPHATASE 112 U/L (38-126); ANION GAP 7 (5-19); ASPARTATE AMINO TRANSFERASE 32 U/L (17-59); BILIRUBIN,DIRECT 0.1 mg/dL (0.0-0.4); BILIRUBIN,TOTAL 0.4 mg/dL (0.2-1.3); BLOOD UREA NITROGEN 26 mg/dL (7-20); CALCIUM 8.3 mg/dL (8.4-10.2); CARBON DIOXIDE 22 mmol/L (22-30); CHLORIDE 103 mmol/L (98-107); GLUCOSE 128 mg/dL (75-110); POTASSIUM 4.3 mmol/L (3.6-5.0); TOTAL PROTEIN 5.1 g/dL (6.3-8.2)
[2020-05-01 06:12] LABS: ABSOLUTE LYMPHOCYTES# (MANUAL) 0.8 10^3/uL (0.5-4.7); ABSOLUTE MONOCYTES # (MANUAL) 0.6 10^3/uL (0.1-1.4); BASOPHILS % (MANUAL) 0 % (0-2); EOSINOPHILS % (MANUAL) 0 % (0-6); LYMPHOCYTES % (MANUAL) 7 % (13-45); MONOCYTES % (MANUAL) 5 % (3-13); NUCLEATED RED BLOOD CELLS 1 /100 WBC (0); SEGMENTED NEUTROPHILS % (MAN) 88 % (42-78); TOTAL CELLS COUNTED 100
[2020-05-01 06:13] LABS: PLATELET COMMENT ADEQUATE; RBC MORPHOLOGY COMMENT NORMO-CYTIC/CHROMIC
--- NOTE | 2020-05-01 06:15 | Progress Note ---
Provider Note Provider Note: Critical CARE note: 05/01/2020 Critical care start time: 0530 Critical care issue: Unresponsiveness I responded to a rapid response called by the patient's nurse due to a sudden change in his mental status. Patient had become stuporous and poorly responsive with notable hypoventilation, hypoxia and tachycardia. On initial evaluation the patient was noted to be in atrial fibrillation with a heart rate in the vicinity of 120 but with very wide [id number]-rl-[id number] variability noted. His respiratory effort was poor. His skin appeared to be pale and diaphoretic. He was stuporous and very poorly responsive to severe painful stimulation of a sternal rub. He was given Romazicon 0.5 mg IV with improvement in his resp onsiveness in that he would wake and at least try to answer questions after mild to moderate painful stimulation in his oxygen saturation improved to 100%. A nasal airway was inserted. His cardiac rhythm was noted to be atrial fibrillation with a rapid ventricular response of approximately 160 and was treated with diltiazem 20 mg IV x1 with initiation of a diltiazem infusion at 10 mg/h to be titrated as needed, per protocol, to control his heart rate. An additional Romazicon dosage of 0.5 mg was given approximately 15 minutes after the first dose with again somewhat improved responsiveness to stimuli however the patient was still stuporous and poorly responsive. Due to his failure to recover back to his baseline I consulted with the government documents librarian service and asked that they consider taking the patient back to the ICU due to his acute change in mental status. The government documents librarian practitioner concurred with the assessment and the patient was taken back to the ICU. Critical care end time: 06 Total critical care time: 32 minutes
[2020-05-01 06:22] LABS: ARTERIAL BLOOD BASE EXCESS -2.9 mmol/L; ARTERIAL BLOOD H2CO3 0.84 mmol/L (1.05-1.35); ARTERIAL BLOOD HCO3 19.8 mmol/L (20-24); ARTERIAL BLOOD O2 SATURATION 96.5 % (94-98); ARTERIAL BLOOD PCO2 27.9 mmHg (35-45); ARTERIAL BLOOD PH 7.47 (7.35-7.45); ARTERIAL BLOOD PO2 78.4 mmHg (80-100); ARTERIAL BLOOD TOTAL CO2 20.7 mmol/L (23-27)
[2020-05-01 06:23] LABS: ARTERIAL BLOOD FIO2 1.5L
[2020-05-01] MEDS ORDERED: AMIODARONE HCL INJ 150 MG/3 ML VIAL IV ONE ×2 (06:24→06:45)
[2020-05-01] MEDS ORDERED: DEXTROSE 5%-WATER 500 ML with AMIODARONE HCL 900 MG IV PRN ×2 (06:43)
[2020-05-01] MEDS ORDERED: AMIODARONE HCL 150 MG in DEXTROSE 5%-WATER 100 ML IV ONE (06:45)
[2020-05-01] MEDS ORDERED: PHARMACY COMMUNICATION ORDER MC NR (07:15)
--- NOTE | 2020-05-01 07:41 | EKG REPORT ---
SEVERITY:- ABNORMAL ECG - ATRIAL FIBRILLATION WITH RAPID V-RATE , RHYTHM IS NEW COMPARED TO 04/23/20 EKG NONSPECIFIC T ABNORMALITIES, DIFFUSE LEADS : Confirmed by: Gregor Pugh MD 01-May-2020 07:40:59
--- NOTE | 2020-05-01 08:20 | CRITICAL CARE ADMISSION REPORT ---
HPI Date:: 05/01/20 Time:: 07:00 Reason for ICU Reason:: Probable aspiration, ETOH WD, delirium, rapid afib. Admission Date/Time & PCP: Admission Date/Time: 04/28/20 11:07 Primary Care Provider: [place] DO HPI: This patient is a 64 yo man who had a TKR on 04/25. Maintained briefly in the ICU for ETOH WD. He drinks up to a gallon of rum daily according to records. He was on the floor still obtunded, in a rapid atrial fibrillation now down to 90s. He has evidence of a rather large RLL infiltrate, which given his mental statud, may very well be an aspiration. He is an intubation risk but is requiring much care for the floor. History obtained from:: Old records, [place] PA-C. - Diagnosis/Plan (1) Aspiration pneumonia Qualifiers: Aspiration pneumonia type: unspecified Laterality: right Lung location: lower lobe of lung Qualified Code(s): J69.0 - Pneumonitis due to inhalation of food and vomit Is this a current diagnosis for this admission?: Yes Plan: This is presumed and suspected. Given his presentation, mental status this is likely. (2) Alcohol abuse Is this a current diagnosis for this admission?: Yes Plan: Said to drink up to a gallon of rum a day. Abstinent a week. Certainly he could still have an element of WD. Will hold off on phenobarbitol and try ativan. (3) Alcohol withdrawal Qualifiers: Complication of substance-induced condition: with delirium Qualified Code(s): F10.231 - Alcohol dependence with withdrawal delirium Is this a current diagnosis for this admission?: Yes Plan: Same as above. (4) Fibrillary glomerulonephritis Is this a current diagnosis for this admission?: Yes Plan: He has been off mycophenelate for 2 weeks. GFR 60 and Cr about 1.2. (5) HTN (hypertension) Qualifiers: Hypertension type: essential hypertension Qualified Code(s): I10 - Essential (primary) hypertension Is this a current diagnosis for this admission?: Yes Plan: Controlled and not high due to WD at this time. (6) Hyponatremia Is this a current diagnosis for this admission?: Yes Plan: Level about 132 today. This is close to his baseline. (7) Status post left knee replacement Is this a current diagnosis for this admission?: Yes Plan: Thus far stable and wt bearing. Plan Summary: Plan to treat for etoh WD with benzodiazepines. Support his respiratory status. Routine post op care and question is patient can be fully anticoagulated for afib. Feed as he has been NPO several days. Past Medical History Cardiac Medical History: Reports: Hypertension Denies: Myocardial Infarction Pulmonary Medical History: Reports: Asthma, Bronchitis, Chronic Obstructive Pulmonary Disease (COPD) - BORDERLINE, Pneumonia Denies: Sleep Apnea Neurological Medical History: Denies: Seizures Musculoskeltal Medical History: Denies: Arthritis Psychiatric Medical History: Reports: Depression Hematology: Reports: Anemia Past Surgical History Past Surgical History: Reports: Cholecystectomy, Colostomy, Orthopedic Surgery, Other - Partial colon resection for diverticular disease with colostomy bag followe Social/Family History - Social History Smoking Status: Former Smoker Frequency of Alcohol Use: Heavy Hx Recreational Drug Use: No Hx Prescription Drug Abuse: No - Medication/Allergies Home Medications: Cetirizine HCl [Zyrtec 10 mg Tablet] 1 tab PO DAILY 01/09/14 Carvedilol [Coreg] 3.125 mg PO BID 12/14/19 Magnesium Oxide 400 mg PO DAILY 12/14/19 Metoclopramide HCl [Reglan] 10 mg PO QAM 12/14/19 Ondansetron [Zofran Odt 4 mg Tablet] 1 - 2 tab PO Q4HP PRN 12/14/19 Albuterol Sulfate [Proair HFA Inhalation Aerosol 8.5 gm MDI] 2 puff IH PRN PRN 12/21/19 Montelukast Sodium [Singulair 10 mg Tablet] 10 mg PO DAILY 12/21/19 Tiotropium [place] [Spiriva Handihaler 5 Cap/Kit (18 Mcg/Cap)] 2 puff IH DAILY 12/21/19 Cyanocobalamin (Vitamin B-12) [Vitamin B-12 1000 Mcg Tablet] 1 tab PO DAILY 04/28/20 Mycophenolate Mofetil 1,000 mg PO BID 04/28/20 Allergies/Adverse Reactions: lisinopril [Lisinopril] Allergy (Severe, Verified 05/01/20 07:27) sildenafil [From Viagra] Allergy (Intermediate, Verified 05/01/20 07:27) testosterone [From Depo-Testosterone] Allergy (Verified 05/01/20 07:27) SILK TAPE Allergy (Uncoded 05/01/20 07:27) Review of Systems ROS unobtainable: Due to mental status Physical Exam Vital Signs: Temp Pulse Resp BP Pulse Ox 98.0 F 102 H 20 122/85 100 05/01/20 03:30 05/01/20 03:30 05/01/20 03:30 05/01/20 03:30 05/01/20 03:30 Intake & Output 04/30/20 05/01/20 05/02/20 06:59 06:59 06:59 Intake Total 1823 1818 Output Total 2700 875 Balance -877 943 Weight 96.5 kg 95.5 kg Weight/Height Weight 95.5 kg Height 5 ft 8 in General appearance: PRESENT: no acute distress, obese Head exam: PRESENT: atraumatic, normocephalic Eye exam: PRESENT: conjunctiva pink, EOMI, PERRLA. ABSENT: scleral icterus Ear exam: PRESENT: normal external ear exam Mouth exam: PRESENT: moist, tongue midline Respiratory exam: PRESENT: clear to auscultation leonardo. ABSENT: rales, rhonchi, wheezes Cardiovascular exam: PRESENT: RRR. ABSENT: diastolic murmur, rubs, systolic murmur Vascular exam: PRESENT: normal capillary refill GI/Abdominal exam: PRESENT: normal bowel sounds, soft. ABSENT: distended, guarding, mass, organolmegaly, rebound, tenderness Rectal exam: PRESENT: deferred Gentrourinary exam: PRESENT: indwelling catheter Extremities exam: PRESENT: full ROM. ABSENT: calf tenderness, clubbing, pedal edema Musculoskeletal exam: PRESENT: normal inspection, other - L knee with clean menjivar ture lines. Swollen, not red not warm,. Neurological exam: PRESENT: altered, awake, oriented to person, oriented to place Psychiatric exam: PRESENT: agitated - At times Focused psych exam: PRESENT: restlessness Skin exam: PRESENT: dry, intact, warm. ABSENT: cyanosis, rash Laboratory/Radiographs Laboratory Results: 05/01/20 05:07 05/01/20 05:07 05/01/20 05/01/20 05/01/20 05:07 05:07 05:59 WBC 11.2 H RBC 2.50 L Hgb 8.6 L Hct 24.9 L MCV 100 H MCH 34.4 H MCHC 34.6 RDW 14.3 H Plt Count 412 Seg Neutrophils % Not Reportable Carbonic Acid 0.84 L HCO3/H2CO3 Ratio 23:1 ABG pH 7.47 H ABG pCO2 27.9 L ABG pO2 78.4 L ABG HCO3 19.8 L ABG O2 Saturation 96.5 ABG Base Excess -2.9 FiO2 1.5L Sodium 131.8 L Potassium 4.3 Chloride 103 Carbon Dioxide 22 Anion Gap 7 BUN 26 H Creatinine 1.25 Est GFR ( Amer) > 60 Glucose 128 H Calcium 8.3 L Magnesium 2.1 Total Bilirubin 0.4 AST 32 Alkaline Phosphatase 112 Total Protein 5.1 L Albumin 2.4 L Impressions: Knee X-Ray 04/25/20 00:00 IMPRESSION: Status post total knee arthroplasty. Intraarticular and subcutaneous gas are not an unexpected finding in the immediate postoperative setting. No evidence of osseous injury. Chest CT 04/28/20 00:00 IMPRESSION: There is interlobular septal thickening with bibasilar airspace opacities. This likely reflects some edema. There may also be superimposed infection. The main pulmonary artery is enlarged, which can be seen with pulmonary artery hypertension. Chest X-Ray 04/30/20 00:00 IMPRESSION: Fluid overload or congestive failure, more prominent than on plain films from 04/28/[address] 04/30/20 00:00 IMPRESSION: NORMAL BRAIN CT WITHOUT CONTRAST. EVIDENCE OF ACUTE STROKE: NO. All labs, radiographs, diagnostic studies and EKGs were personally reviewed: Yes In addition, reports of radiographic and diagnostic studies were read: Yes Critical Time Critical Time (minutes): 40 -: The care of a critically ill patient is dynamic. This note represents a static moment in the admission process. Orders and treatments may be given simultaneously and urgently, and time is not outside sales representative of the treatment process. This patient requires Critical Care secondary to life threatening organ or limb dysfunction. Without Critical Care services, the patient is at risk for increased mortality and morbidity.
[2020-05-01] MEDS ORDERED: DILTIAZEM IV ONE (08:24)
[2020-05-01] MEDS ORDERED: DEXTROSE IV ONE (08:24)
[2020-05-01] MEDS: PANTOPRAZOLE SODIUM 40 MG VIAL IV SCH (11:45)
[2020-05-01] MEDS: CETIRIZINE 10 MG TABLET NG SCH (11:46)
[2020-05-01] MEDS: ASPIRIN 325 MG TABLET NG SCH (11:48)
[2020-05-01] MEDS: CEFTRIAXONE 1 GM/D5W RTU 1 GM/50 ML RTUPB IV SCH (11:48)
[2020-05-01] MEDS: NORMAL SALINE 1000 ML 1,000 ML with POTASSIUM CHLORIDE 20 MEQ, MAGNESIUM SULFATE 8 MEQ,... IV SCH ×5 (11:50)
--- NOTE | 2020-05-01 14:00 | RADIOLOGY REPORT (SQ) ---
EXAM DESCRIPTION: KUB/ABDOMEN (SINGLE VIEW) IMAGES COMPLETED DATE/TIME: 05/01/2020 1:51 pm REASON FOR STUDY: Check Placement of NG Tube M17.12 UNILATERAL PRIMARY OSTEOARTHRITIS, LEFT KNEE COMPARISON: None. NUMBER OF VIEWS: One view. TECHNIQUE: Supine radiographic image of the abdomen acquired. LIMITATIONS: LOWER ABDOMEN EXCLUDED BY COLLIMATION. FINDINGS: BOWEL GAS PATTERN: Normal bowel gas pattern. No dilated loops. CALCIFICATIONS: No suspicious calcifications. SOFT TISSUES: No gross mass or suggestion of organomegaly. HARDWARE: Nasoenteric tube tip overlies gastric body. BONES: No acute fracture. No worrisome bone lesions. OTHER: Left basilar consolidation with obscuration of the left hemidiaphragm. Small bilateral effusi ons. IMPRESSION: Nasoenteric tube tip overlies gastric body. Left lower lobe consolidation with small bilateral effusions. TECHNICAL DOCUMENTATION: JOB ID: [id number] 2010 [employer]- All Rights Reserved Reading location - IP/workstation name: [email or web address]
[2020-05-01] MEDS: AMIODARONE HCL 200 MG TABLET NG SCH ×2 (15:14→21:32)
[2020-05-01] MEDS: THIAMINE HCL 100 MG TABLET NG SCH (15:32)
[2020-05-01] MEDS: MULTIVITAMIN TABLET PO SCH (15:32)
[2020-05-01] MEDS: FOLIC ACID 1 MG TABLET NG SCH (15:32)
[2020-05-01] MEDS: AMINO AC/PROTEIN HYDR/WHEY PRO 11 GM/45 ML PKT NG SCH (15:57)
--- NOTE | 2020-05-01 16:17 | PDOC PROGRESS REPORT ---
Subjective Progress Note for:: 05/01/20 Subjective:: Patient is reportedly improved this afternoon after this morning. He is occasionally responding appropriately with single words but still very lethargic without much initiation of conversation. Reason For Visit: M17.12 UNILATERAL PRIMARY OSTEOARTHRITIS, LEFT KNE Physical Exam Vital Signs: Temp Pulse Resp BP Pulse Ox 99.5 F 80 18 146/84 H 100 05/01/20 12:00 05/01/20 14:00 05/01/20 15:29 05/01/20 15:29 05/01/20 15:29 Intake & Output 04/30/20 05/01/20 05/02/20 06:59 06:59 06:59 Intake Total 1823 1818 271 Output Total 2700 875 60 Balance -877 943 211 Weight 96.5 kg 95.5 kg 95.5 kg Physical Exam: No acute distress, lethargic Left lower extremity -Pulses 2+ distally -Compartments soft -Sensation grossly intact to L3-4-5 S1 -Motor grossly intact to EHL TA gastroc and quad -Mild to moderate swelling in the left ankle. -Wound is clean dry and intact -2+ pitting edema distally Results Laboratory Results: 05/01/20 05:07 05/01/20 05:07 05/01/20 05/01/20 05/01/20 05:07 05:07 05:59 WBC 11.2 H RBC 2.50 L Hgb 8.6 L Hct 24.9 L MCV 100 H MCH 34.4 H MCHC 34.6 RDW 14.3 H Plt Count 412 Seg Neutrophils % Not Reportable Carbonic Acid 0.84 L HCO3/H2CO3 Ratio 23:1 ABG pH 7.47 H ABG pCO2 27.9 L ABG pO2 78.4 L ABG HCO3 19.8 L ABG O2 Saturation 96.5 ABG Base Excess -2.9 FiO2 1.5L Sodium 131.8 L Potassium 4.3 Chloride 103 Carbon Dioxide 22 Anion Gap 7 BUN 26 H Creatinine 1.25 Est GFR ( Amer) > 60 Glucose 128 H Calcium 8.3 L Magnesium 2.1 Total Bilirubin 0.4 AST 32 Alkaline Phosphatase 112 Total Protein 5.1 L Albumin 2.4 L Impressions: Knee X-Ray 04/25/20 00:00 IMPRESSION: Status post total knee arthroplasty. Intraarticular and subcutaneous gas are not an unexpected finding in the immediate postoperative setting. No evidence of osseous injury. Chest CT 04/28/20 00:00 IMPRESSION: There is interlobular septal thickening with bibasilar airspace opacities. This likely reflects some edema. There may also be superimposed infection. The main pulmonary artery is enlarged, which can be seen with pulmonary artery hypertension. Chest X-Ray 04/30/20 00:00 IMPRESSION: Fluid overload or congestive failure, more prominent than on plain films from 04/28/[address] 04/30/20 00:00 IMPRESSION: NORMAL BRAIN CT WITHOUT CONTRAST. EVIDENCE OF ACUTE STROKE: NO. KUB X-Ray 05/01/20 07:11 IMPRESSION: Nasoenteric tube tip overlies gastric body. Left lower lobe consolidation with small bilateral effusions. Assessment & Plan - Diagnosis (1) Status post left knee replacement Is this a current diagnosis for this admission?: Yes Plan: -Weightbearing as tolerated, no precautions, encourage out of bed PATI for ADL training - PT/OT -encourage out of bed - Keep knee extended in bed, rolled towel under the ankle to obtain full extension -Will defer DVT prophylaxis to medicine team at this point. His far enough out from surgery to tolerate daily Lovenox, suggest low-dose -multimodal pain management to avoid excessive narcotics, including gabapentin, tramadol, Toradol, acetaminophen. -Dry dressing changes as needed -May discontinue the cold machine. (2) Hyponatremia Is this a current diagnosis for this admission?: Yes (3) Alcohol abuse Is this a current diagnosis for this admission?: Yes - Time Time Spent with patient: Less than 15 minutes
[2020-05-01] MEDS: RINGERS SOLUTION,LACTATED 1,000 ML IV PRN (18:00)
[2020-05-02] MEDS: VANCOMYCIN HCL 1,000 MG in DEXTROSE 5%-WATER 250 ML IV SCH ×2 (01:11→15:10)
[2020-05-02 04:19] LABS: HEMATOCRIT 27.8 % (37.9-51.0); HEMOGLOBIN 9.6 g/dL (13.5-17.0); MEAN CORPUSCULAR HEMOGLOBIN 34.2 pg (27.0-33.4); MEAN CORPUSCULAR HGB CONC 34.4 g/dL (32.0-36.0); MEAN CORPUSCULAR VOLUME 99 fl (80-97); PLATELET COUNT 495 10^3/uL (150-450); WHITE BLOOD COUNT 10.9 10^3/uL (4.0-10.5)
[2020-05-02 04:33] LABS: ANION GAP 9 (5-19); BLOOD UREA NITROGEN 30 mg/dL (7-20); CALCIUM 8.5 mg/dL (8.4-10.2); CARBON DIOXIDE 21 mmol/L (22-30); CHLORIDE 102 mmol/L (98-107); GLUCOSE 142 mg/dL (75-110); POTASSIUM 4.2 mmol/L (3.6-5.0)
[2020-05-02] MEDS: RINGERS SOLUTION,LACTATED 1,000 ML IV PRN ×2 (08:25→17:00)
[2020-05-02] MEDS: HEPARIN SOD (PORCINE) 5,000 UNIT/ML 1 ML VIAL SUBCUT SCH ×3 (08:25→21:13)
[2020-05-02] MEDS: ASPIRIN 325 MG TABLET NG SCH (09:47)
[2020-05-02] MEDS: AMIODARONE HCL 200 MG TABLET NG SCH ×2 (09:47→21:13)
[2020-05-02] MEDS: CETIRIZINE 10 MG TABLET NG SCH (09:47)
[2020-05-02] MEDS: FOLIC ACID 1 MG TABLET NG SCH (09:47)
[2020-05-02] MEDS: MULTIVITAMIN TABLET PO SCH (09:47)
[2020-05-02] MEDS: THIAMINE HCL 100 MG TABLET NG SCH (09:47)
[2020-05-02] MEDS: PANTOPRAZOLE SODIUM 40 MG VIAL IV SCH (09:48)
[2020-05-02] MEDS: CEFTRIAXONE 1 GM/D5W RTU 1 GM/50 ML RTUPB IV SCH (09:48)
[2020-05-02] MEDS: AMINO AC/PROTEIN HYDR/WHEY PRO 11 GM/45 ML PKT NG SCH (09:50)
--- NOTE | 2020-05-02 10:28 | PDOC CRITICAL CARE PROG REPORT ---
General Date:: 05/02/20 ICU Day:: 2 Hospital Day:: 7 Resuscitation Status: Full Code Events in the past 12 to 24 Hours:: More awake, getting nutrition. Review of systems relevant to events:: Neurologic, Orthopedic. Reason for ICU Addmission:: Probable aspiration, ETOH WD, delirium. - Medications: Medications reviewed and adjusted accordingly: Yes Vasopressors:: None Sedation:: None Physical Exam Vital Signs: Temp Pulse Resp BP Pulse Ox 100.0 F 100 16 152/88 H 98 05/02/20 06:00 05/02/20 09:55 05/02/20 09:55 05/02/20 08:00 05/02/20 09:55 Intake & Output 05/01/20 05/02/20 05/03/20 06:59 06:59 06:59 Intake Total 1818 1797 Output Total 875 655 155 Balance 943 1142 -155 Weight 95.5 kg 95.7 kg Weight/Height Weight 95.7 kg Height 5 ft 8 in General appearance: PRESENT: no acute distress Head exam: PRESENT: atraumatic, normocephalic Eye exam: PRESENT: conjunctiva pink, EOMI, PERRLA. ABSENT: scleral icterus Ear exam: PRESENT: normal external ear exam Mouth exam: PRESENT: moist, tongue midline Neck exam: ABSENT: carotid bruit, JVD, lymphadenopathy, thyromegaly Respiratory exam: PRESENT: clear to auscultation leonardo. ABSENT: rales, rhonchi, wheezes Cardiovascular exam: PRESENT: RRR. ABSENT: diastolic murmur, rubs, systolic murmur GI/Abdominal exam: PRESENT: normal bowel sounds, soft. ABSENT: distended, guarding, mass, organolmegaly, rebound, tenderness Rectal exam: PRESENT: deferred Gentrourinary exam: PRESENT: indwelling catheter Extremities exam: PRESENT: full ROM, +2 edema, other - Incision on L knee is clean.. ABSENT: calf tenderness, clubbing, pedal edema Musculoskeletal exam: PRESENT: normal inspection Neurological exam: PRESENT: alert, altered, awake, oriented to person Psychiatric exam: PRESENT: agitated - At times Skin exam: PRESENT: dry, intact, warm. ABSENT: cyanosis, rash Tubes/Lines: PRESENT: Nasogastic Tube Laboratory/Radiographs Laboratory Results: 05/02/20 04:03 05/02/20 04:03 05/02/20 05/02/20 04:03 04:03 WBC 10.9 H RBC 2.80 L Hgb 9.6 L Hct 27.8 L MCV 99 H MCH 34.2 H MCHC 34.4 RDW 15.0 H Plt Count 495 H Sodium 131.7 L Potassium 4.2 Chloride 102 Carbon Dioxide 21 L Anion Gap 9 BUN 30 H Creatinine 1.19 Est GFR ( Amer) > 60 Glucose 142 H Calcium 8.5 Impressions: Knee X-Ray 04/25/20 00:00 IMPRESSION: Status post total knee arthroplasty. Intraarticular and subcutaneous gas are not an unexpected finding in the immediate postoperative setting. No evidence of osseous injury. Chest CT 04/28/20 00:00 IMPRESSION: There is interlobular septal thickening with bibasilar airspace opacities. This likely reflects some edema. There may also be superimposed infection. The main pulmonary artery is enlarged, which can be seen with pulmonary artery hypertension. Chest X-Ray 04/30/20 00:00 IMPRESSION: Fluid overload or congestive failure, more prominent than on plain films from 04/28/[address] 04/30/20 00:00 IMPRESSION: NORMAL BRAIN CT WITHOUT CONTRAST. EVIDENCE OF ACUTE STROKE: NO. KUB X-Ray 05/01/20 07:11 IMPRESSION: Nasoenteric tube tip overlies gastric body. Left lower lobe consolidation with small bilateral effusions. EKG: Now in NSR All labs, radiographs, diagnostic studies and EKGs were personally reviewed: Yes In addition, reports of radiographic and diagnostic studies were read: Yes Assessment and Plan - Diagnosis (1) Aspiration pneumonia Qualifiers: Aspiration pneumonia type: unspecified Laterality: right Lung location: lower lobe of lung Qualified Code(s): J69.0 - Pneumonitis due to inhalation of food and vomit Is this a current diagnosis for this admission?: Yes Plan: This seems to be resolving. O2 saturations 100% and not labored. (2) Alcohol abuse Is this a current diagnosis for this admission?: Yes Plan: On going but he is groggy but appropriate. Perhaps this has run its course. NO sedation ar ativan. (3) Alcohol withdrawal Qualifiers: Complication of substance-induced condition: with delirium Qualified Code(s): F10.231 - Alcohol dependence with withdrawal delirium Is this a current diagnosis for this admission?: Yes Plan: Improving and may have run its course. (4) Fibrillary glomerulonephritis Is this a current diagnosis for this admission?: Yes Plan: Put back on mycophenalat if needed. (5) HTN (hypertension) Qualifiers: Hypertension type: essential hypertension Qualified Code(s): I10 - Essential (primary) hypertension Is this a current diagnosis for this admission?: Yes Plan: Controlled (6) Hyponatremia Is this a current diagnosis for this admission?: Yes Plan: Resolved. (7) Status post left knee replacement Is this a current diagnosis for this admission?: Yes Plan: Needs PT and mobilization. (8) Hypoalbuminemia due to protein-calorie malnutrition Is this a current diagnosis for this admission?: Yes Plan: Now on tube feeds with a speech evaluation pending. The low albumin will not resolve quickly. This is contributing to his swelling and edema and why his protein bound drugs like phenobarb are having a lasting effect. Plan Summary: Able to downgrade back to [facility] today. Mobilize. Critical Time Critical Time (minutes): 35 Level of Care: IMCU Anticipated discharge: SNF Within: Other -: 1. The care of a critical patient is a dynamic process. This note is a patient relations representative synopsis but static in nature. The timeframe for treatments given in order is not necessarily the actual time these treatments may have been done. 2. This patient requires critical care secondary to ongoing requirements for therapy not offered or safe outside the critical care environment. Transfer to a lower level of care will result in altered life or limb morbidity and mortality. 3. Multidisciplinary rounds completed. 4. ABCDE bundle addressed.
[2020-05-02] MEDS ORDERED: ACETAMINOPHEN SOLN 325 MG/10.15 ML UDCUP NG PRN (11:30)
[2020-05-02 14:30] LABS: VANCOMYCIN,TROUGH 24.1 ug/mL (5.0-20.0)
[2020-05-02] MEDS ORDERED: VANCOMYCIN HCL 750 MG in DEXTROSE 5%-WATER 250 ML IV SCH (18:00)
[2020-05-03] MEDS: RINGERS SOLUTION,LACTATED 1,000 ML IV PRN (03:20)
[2020-05-03 04:02] LABS: HEMATOCRIT 23.3 % (37.9-51.0); MEAN CORPUSCULAR HEMOGLOBIN 33.9 pg (27.0-33.4); MEAN CORPUSCULAR HGB CONC 34.4 g/dL (32.0-36.0); MEAN CORPUSCULAR VOLUME 99 fl (80-97); PLATELET COUNT 505 10^3/uL (150-450); RED BLOOD COUNT 2.36 10^6/uL (4.35-5.55); RED CELL DISTRIBUTION WIDTH 14.9 % (11.5-14.0); WHITE BLOOD COUNT 8.8 10^3/uL (4.0-10.5)
[2020-05-03 04:25] LABS: ANION GAP 5 (5-19); BLOOD UREA NITROGEN 30 mg/dL (7-20); CALCIUM 8.3 mg/dL (8.4-10.2); CARBON DIOXIDE 24 mmol/L (22-30); CHLORIDE 104 mmol/L (98-107); GLUCOSE 162 mg/dL (75-110); POTASSIUM 4.4 mmol/L (3.6-5.0)
[2020-05-03] MEDS: HEPARIN SOD (PORCINE) 5,000 UNIT/ML 1 ML VIAL SUBCUT SCH ×3 (05:18→21:19)
--- NOTE | 2020-05-03 07:33 | PDOC PROGRESS REPORT ---
Subjective Progress Note for:: 05/03/20 Subjective:: Patient appears more alert today than he has been over the last week. Communication is intelligible. Able to follow verbal commands. Still lethargic and slurred speech Reason For Visit: M17.12 UNILATERAL PRIMARY OSTEOARTHRITIS, LEFT KNE Physical Exam Vital Signs: Temp Pulse Resp BP Pulse Ox 99.1 F 95 17 152/88 H 95 05/03/20 05:27 05/03/20 01:30 05/03/20 06:00 05/03/20 05:56 05/03/20 06:00 Intake & Output 05/02/20 05/03/20 05/04/20 06:59 06:59 06:59 Intake Total 1797 2410 Output Total 655 1010 Balance 1142 1400 Weight 95.7 kg 95.3 kg Physical Exam: No acute distress, lethargic Left lower extremity -Pulses 2+ distally -Compartments soft -Sensation grossly intact to L3-4-5 S1 -Motor grossly intact to EHL TA gastroc and quad -Mild to moderate swelling in the left ankle. -Wound is clean dry and intact, appears healthy, no signs of infection. - edema has improved with DOREEN hose Results Laboratory Results: 05/03/20 03:52 05/03/20 03:52 05/03/20 05/03/20 03:52 03:52 WBC 8.8 RBC 2.36 L Hgb 8.0 L Hct 23.3 L MCV 99 H MCH 33.9 H MCHC 34.4 RDW 14.9 H Plt Count 505 H Sodium 133.1 L Potassium 4.4 Chloride 104 Carbon Dioxide 24 Anion Gap 5 BUN 30 H Creatinine 1.11 Est GFR ( Amer) > 60 Glucose 162 H Calcium 8.3 L Impressions: Knee X-Ray 04/25/20 00:00 IMPRESSION: Status post total knee arthroplasty. Intraarticular and subcutaneous gas are not an unexpected finding in the immediate postoperative setting. No evidence of osseous injury. Chest CT 04/28/20 00:00 IMPRESSION: There is interlobular septal thickening with bibasilar airspace opacities. This likely reflects some edema. There may also be superimposed infection. The main pulmonary artery is enlarged, which can be seen with pulmonary artery hypertension. Chest X-Ray 04/30/20 00:00 IMPRESSION: Fluid overload or congestive failure, more prominent than on plain films from 04/28/[address] 04/30/20 00:00 IMPRESSION: NORMAL BRAIN CT WITHOUT CONTRAST. EVIDENCE OF ACUTE STROKE: NO. KUB X-Ray 05/01/20 07:11 IMPRESSION: Nasoenteric tube tip overlies gastric body. Left lower lobe consolidation with small bilateral effusions. Assessment & Plan - Diagnosis (1) Status post left knee replacement Is this a current diagnosis for this admission?: Yes Plan: -Weightbearing as tolerated, no precautions, encourage out of bed PATI for ADL training - PT/OT -encourage out of bed - Keep knee extended in bed, rolled towel under the ankle to obtain full extension -Will defer DVT prophylaxis to medicine team -multimodal pain management to avoid excessive narcotics, including gabapentin, tramadol, Toradol, acetaminophen. -Dry dressing changes as needed (2) Hyponatremia Is this a current diagnosis for this admission?: Yes (3) Alcohol abuse Is this a current diagnosis for this admission?: Yes - Time Time Spent with patient: Less than 15 minutes
--- NOTE | 2020-05-03 08:55 | PDOC CRITICAL CARE PROG REPORT ---
General Date:: 05/03/20 Hospital Day:: 8 Resuscitation Status: Full Code Events in the past 12 to 24 Hours:: More awake, no benzodiazepines. Knee looks good. Review of systems relevant to events:: Neurological. Reason for ICU Addmission:: Probable aspiration, ETOH WD, delirium. All resolved - Medications: Medications reviewed and adjusted accordingly: Yes Vasopressors:: None Sedation:: None Physical Exam Vital Signs: Temp Pulse Resp BP Pulse Ox 99.1 F 91 20 155/92 H 94 05/03/20 05:27 05/03/20 07:10 05/03/20 08:00 05/03/20 07:56 05/03/20 07:56 Intake & Output 05/02/20 05/03/20 05/04/20 06:59 06:59 06:59 Intake Total 1797 2410 Output Total 655 1010 150 Balance 1142 1400 -150 Weight 95.7 kg 95.3 kg Weight/Height Weight 95.3 kg Height 5 ft 8 in General appearance: PRESENT: no acute distress, cooperative Head exam: PRESENT: atraumatic, normocephalic Eye exam: PRESENT: conjunctiva pink, EOMI, PERRLA. ABSENT: scleral icterus Ear exam: PRESENT: normal external ear exam Mouth exam: PRESENT: moist, tongue midline Respiratory exam: PRESENT: clear to auscultation leonardo, decreased breath sounds. ABSENT: rales, rhonchi, wheezes Cardiovascular exam: PRESENT: RRR. ABSENT: diastolic murmur, rubs, systolic murmur GI/Abdominal exam: PRESENT: normal bowel sounds, soft. ABSENT: distended, guarding, mass, organolmegaly, rebound, tenderness Rectal exam: PRESENT: deferred Extremities exam: PRESENT: other - Incision looks clean. Neurological exam: PRESENT: alert, awake, oriented to person, oriented to place, oriented to situation Psychiatric exam: PRESENT: appropriate affect, normal mood. ABSENT: homicidal ideation, suicidal ideation Skin exam: PRESENT: dry, intact, warm. ABSENT: cyanosis, rash Laboratory/Radiographs Laboratory Results: 05/03/20 03:52 05/03/20 03:52 05/03/20 05/03/20 03:52 03:52 WBC 8.8 RBC 2.36 L Hgb 8.0 L Hct 23.3 L MCV 99 H MCH 33.9 H MCHC 34.4 RDW 14.9 H Plt Count 505 H Sodium 133.1 L Potassium 4.4 Chloride 104 Carbon Dioxide 24 Anion Gap 5 BUN 30 H Creatinine 1.11 Est GFR ( Amer) > 60 Glucose 162 H Calcium 8.3 L Impressions: Knee X-Ray 04/25/20 00:00 IMPRESSION: Status post total knee arthroplasty. Intraarticular and subcutaneous gas are not an unexpected finding in the immediate postoperative setting. No evidence of osseous injury. Chest CT 04/28/20 00:00 IMPRESSION: There is interlobular septal thickening with bibasilar airspace opacities. This likely reflects some edema. There may also be superimposed infection. The main pulmonary artery is enlarged, which can be seen with pulmonary artery hypertension. Chest X-Ray 04/30/20 00:00 IMPRESSION: Fluid overload or congestive failure, more prominent than on plain films from 04/28/[address] 04/30/20 00:00 IMPRESSION: NORMAL BRAIN CT WITHOUT CONTRAST. EVIDENCE OF ACUTE STROKE: NO. KUB X-Ray 05/01/20 07:11 IMPRESSION: Nasoenteric tube tip overlies gastric body. Left lower lobe consolidation with small bilateral effusions. All labs, radiographs, diagnostic studies and EKGs were personally reviewed: Yes In addition, reports of radiographic and diagnostic studies were read: Yes Assessment and Plan - Diagnosis (1) Aspiration pneumonia Qualifiers: Aspiration pneumonia type: unspecified Laterality: right Lung location: lower lobe of lung Qualified Code(s): J69.0 - Pneumonitis due to inhalation of food and vomit Is this a current diagnosis for this admission?: Yes Plan: Resolved. Still has NG for feeding. Speech evaluation still in progress. (2) Alcohol abuse Is this a current diagnosis for this admission?: Yes Plan: On going but abstinent for > 1 week. (3) Alcohol withdrawal Qualifiers: Complication of substance-induced condition: with delirium Qualified Code(s): F10.231 - Alcohol dependence with withdrawal delirium Is this a current diagnosis for this admission?: Yes Plan: Resolved (4) Fibrillary glomerulonephritis Is this a current diagnosis for this admission?: Yes Plan: Not active. (5) HTN (hypertension) Qualifiers: Hypertension type: essential hypertension Qualified Code(s): I10 - Essential (primary) hypertension Is this a current diagnosis for this admission?: Yes Plan: Controlled. (6) Hyponatremia Is this a current diagnosis for this admission?: Yes Plan: Resolved (7) Status post left knee replacement Is this a current diagnosis for this admission?: Yes Plan: Routine post op care and PT. (8) Hypoalbuminemia due to protein-calorie malnutrition Is this a current diagnosis for this admission?: Yes Plan: Still getting TF. Speech evaluation in progress. Plan Summary: His alcohol WD has abated, he needs mobilization and needs to go from the ICU for his mental status and mobility. Critical Time Critical Time (minutes): 25 Level of Care: IMCU Anticipated discharge: SNF Within: Other -: 1. The care of a critical patient is a dynamic process. This note is a nutrition representative synopsis but static in nature. The timeframe for treatments given in order is not necessarily the actual time these treatments may have been done. 2. This patient requires critical care secondary to ongoing requirements for therapy not offered or safe outside the critical care environment. Transfer to a lower level of care will result in altered life or limb morbidity and mortality. 3. Multidisciplinary rounds completed. 4. ABCDE bundle addressed.
[2020-05-03] MEDS: ASPIRIN 325 MG TABLET NG SCH (10:26)
[2020-05-03] MEDS: AMIODARONE HCL 200 MG TABLET NG SCH (10:26)
[2020-05-03] MEDS: FOLIC ACID 1 MG TABLET PO SCH ×2 (10:26→10:27)
[2020-05-03] MEDS: CEFTRIAXONE 1 GM/D5W RTU 1 GM/50 ML RTUPB IV SCH (10:27)
[2020-05-03] MEDS: MULTIVITAMIN TABLET PO SCH (10:28)
[2020-05-03] MEDS: CETIRIZINE 10 MG TABLET NG SCH (10:28)
[2020-05-03] MEDS: THIAMINE HCL 100 MG TABLET PO SCH (10:30)
[2020-05-04] MEDS: RINGERS SOLUTION,LACTATED 1,000 ML IV PRN (06:35)
[2020-05-04] MEDS: HEPARIN SOD (PORCINE) 5,000 UNIT/ML 1 ML VIAL SUBCUT SCH ×4 (06:36→21:48)
[2020-05-04] MEDS: AMLODIPINE BESYLATE 5 MG TABLET PO SCH (09:55)
[2020-05-04] MEDS: FOLIC ACID 1 MG TABLET PO SCH (09:55)
[2020-05-04] MEDS: THIAMINE HCL 100 MG TABLET PO SCH (09:55)
[2020-05-04] MEDS: MULTIVITAMIN TABLET PO SCH (09:55)
[2020-05-04] MEDS: CETIRIZINE 10 MG TABLET NG SCH (09:55)
[2020-05-04] MEDS: CEFTRIAXONE 1 GM/D5W RTU 1 GM/50 ML RTUPB IV SCH (09:55)
[2020-05-04] MEDS: ASPIRIN 325 MG TABLET NG SCH (09:55)
--- NOTE | 2020-05-04 18:05 | PDOC PROGRESS REPORT ---
Subjective Progress Note for:: 05/04/20 Subjective:: Patient states that he feels very weak. Denies any trouble breathing at this time. States that he does not feel hungry and that the hospital food was not appetizing. Denies any chest pain at this time. States that he used to walk prior to coming to the hospital. Reason For Visit: M17.12 UNILATERAL PRIMARY OSTEOARTHRITIS, LEFT KNE Physical Exam Vital Signs: Temp Pulse Resp BP Pulse Ox 97.3 F 88 17 154/83 H 94 05/04/20 16:00 05/04/20 16:00 05/04/20 16:00 05/04/20 16:00 05/04/20 16:00 Intake & Output 05/03/20 05/04/20 05/05/20 06:59 06:59 06:59 Intake Total 2410 1090 323 Output Total 1010 500 Balance 1400 590 323 Weight 95.3 kg 95.3 kg General appearance: PRESENT: no acute distress, cooperative Eye exam: PRESENT: nystagmus - Mild nystagmus horizontally Neck exam: ABSENT: JVD Respiratory exam: PRESENT: clear to auscultation leonardo, unlabored. ABSENT: tachypnea, wheezes Cardiovascular exam: PRESENT: RRR, +S1, +S2. ABSENT: tachycardia GI/Abdominal exam: PRESENT: soft. ABSENT: rebound, rigid, tenderness Neurological exam: PRESENT: alert, awake, oriented to person, oriented to place, oriented to time, oriented to situation, motor sensory deficit - 3-4/5 strength x all 4 extremities. Extremely weak but nonfocal. ABSENT: CN II-XII grossly i ntact - Significant dysarthria, aphasic Results Laboratory Results: 05/03/20 03:52 05/03/20 03:52 04/28/20 15:30 Blood Blood Culture - Final NO GROWTH IN 5 DAYS 04/28/20 15:55 Blood Blood Culture - Final NO GROWTH IN 5 DAYS Impressions: Knee X-Ray 04/25/20 00:00 IMPRESSION: Status post total knee arthroplasty. Intraarticular and subcutaneous gas are not an unexpected finding in the immediate postoperative setting. No evidence of osseous injury. Chest CT 04/28/20 00:00 IMPRESSION: There is interlobular septal thickening with bibasilar airspace opacities. This likely reflects some edema. There may also be superimposed infection. The main pulmonary artery is enlarged, which can be seen with pulmonary artery hypertension. Chest X-Ray 04/30/20 00:00 IMPRESSION: Fluid overload or congestive failure, more prominent than on plain films from 04/28/[address] 04/30/20 00:00 IMPRESSION: NORMAL BRAIN CT WITHOUT CONTRAST. EVIDENCE OF ACUTE STROKE: NO. KUB X-Ray 05/01/20 07:11 IMPRESSION: Nasoenteric tube tip overlies gastric body. Left lower lobe consolidation with small bilateral effusions. Assessment and Plan - Diagnosis (1) Aspiration pneumonia Qualifiers: Aspiration pneumonia type: unspecified Laterality: right Lung location: lower lobe of lung Qualified Code(s): J69.0 - Pneumonitis due to inhalation of food and vomit Is this a current diagnosis for this admission?: Yes Plan: Currently on ceftriaxone but has been on this for a while and likely ending therapy soon. SPO2 is adequate on room air. Evaluated by speech pathologist who states mild oral and pharyngeal dysphasia recommends pured thin liquids with small bites and sips. (2) Physical deconditioning Is this a current diagnosis for this admission?: Yes Plan: Patient is extremely deconditioned. He requires significant assistance for ambulation. Since the patient was ambulatory prior to hospitalization. Patient's weakness is in all extremities could be secondary to critical illness myopathy including recent prolonged sedation with phenobarbital. He will need aggressive physical rehabilitation and placement to rehab upon discharge. (3) Dysarthria Is this a current diagnosis for this admission?: Yes Plan: Etiology is unclear. Uncertain what patient's prehospital baseline is in terms of his speech but he is clearly dysarthric without any aphasia. Neuro exam reveals non-focal weakness. If this dysarthria is acute within the past few days, potential etiologies to consider include CVA, or some other form of encephalopathy including Wernicke's encephalopathy from chronic alcohol abuse. Will monitor patient closely. May need to have an MRI brain for definitive evaluation. Will discuss with family to ascertain prior baseline. (4) Hypoalbuminemia due to protein-calorie malnutrition Is this a current diagnosis for this admission?: Yes Plan: Significantly malnourished. Has had poor caloric intake when at home as he drinks a gallon of alcohol a day. Encouraged adequate nutrition. (5) Alcohol abuse Is this a current diagnosis for this admission?: Yes Plan: Drinks a gallon of alcohol a day. Patient currently on thiamine and folic acid and multivitamin supplements. Encouraged also alcohol cessation. (6) Alcohol withdrawal Qualifiers: Complication of substance-induced condition: with delirium Qualified Code(s): F10.231 - Alcohol dependence with withdrawal delirium Is this a current diagnosis for this admission?: Yes Plan: Resolved (7) Fibrillary glomerulonephritis Is this a current diagnosis for this admission?: Yes Plan: Not active. (8) HTN (hypertension) Qualifiers: Hypertension type: essential hypertension Qualified Code(s): I10 - Essential (primary) hypertension Is this a current diagnosis for this admission?: Yes Plan: Inadequately controlled. Start on amlodipine 5 mg daily (9) Hyponatremia Is this a current diagnosis for this admission?: Yes Plan: Resolved (10) Status post left knee replacement Is this a current diagnosis for this admission?: Yes Plan: Routine post op care and PT. - Time Time Spent with patient: 15-24 minutes
[2020-05-04] MEDS: IPRATROPIUM/ALBUTEROL 0.5-2.5 MG/3 ML AMPUL NEB PRN (18:32)
[2020-05-05] MEDS: RINGERS SOLUTION,LACTATED 1,000 ML IV PRN (04:32)
[2020-05-05 05:17] LABS: HEMATOCRIT 26.3 % (37.9-51.0); HEMOGLOBIN 8.9 g/dL (13.5-17.0); MEAN CORPUSCULAR HEMOGLOBIN 33.4 pg (27.0-33.4); MEAN CORPUSCULAR VOLUME 98 fl (80-97); PLATELET COUNT 644 10^3/uL (150-450); RED BLOOD COUNT 2.67 10^6/uL (4.35-5.55); RED CELL DISTRIBUTION WIDTH 15.4 % (11.5-14.0); WHITE BLOOD COUNT 9.8 10^3/uL (4.0-10.5)
[2020-05-05 05:42] LABS: ANION GAP 9 (5-19); BLOOD UREA NITROGEN 25 mg/dL (7-20); CALCIUM 8.7 mg/dL (8.4-10.2); CARBON DIOXIDE 23 mmol/L (22-30); CHLORIDE 101 mmol/L (98-107); GLUCOSE 115 mg/dL (75-110); POTASSIUM 4.7 mmol/L (3.6-5.0)
[2020-05-05] MEDS: HEPARIN SOD (PORCINE) 5,000 UNIT/ML 1 ML VIAL SUBCUT SCH (05:54)
[2020-05-05] MEDS: CEFTRIAXONE 1 GM/D5W RTU 1 GM/50 ML RTUPB IV SCH (09:48)
[2020-05-05] MEDS: AMLODIPINE BESYLATE 5 MG TABLET PO SCH (09:48)
[2020-05-05] MEDS: FOLIC ACID 1 MG TABLET PO SCH (09:49)
[2020-05-05] MEDS: CETIRIZINE 10 MG TABLET NG SCH (09:49)
[2020-05-05] MEDS: ASPIRIN 325 MG TABLET NG SCH (09:49)
[2020-05-05] MEDS: THIAMINE HCL 100 MG TABLET PO SCH (09:49)
[2020-05-05] MEDS: MULTIVITAMIN TABLET PO SCH (09:49)
--- NOTE | 2020-05-05 10:26 | RADIOLOGY REPORT (SQ) ---
EXAM DESCRIPTION: MRI HEAD WITHOUT IMAGES COMPLETED DATE/TIME: 05/05/2020 9:21 am REASON FOR STUDY: dysarthria M17.12 UNILATERAL PRIMARY OSTEOARTHRITIS, LEFT KNEE COMPARISON: None. TECHNIQUE: Multiplanar imaging includes non-contrasted T1, T2, FLAIR, and Diffusion with ADC map seq uences. Images stored on PACS. LIMITATIONS: None. FINDINGS: ANATOMY: No anomalies. Normal vascular flow voids. Pituitary fossa normal. CSF SPACES: Normal in size and contour. No hemorrhage. CEREBRUM: A few high-signal intensity lesions scattered throughout the white matter on FLAIR imaging with distribution suggesting chronic micro-vascular ischemic change. Sulci and gyri normal in size a nd contour. No evidence of hemorrhage, mass or extraaxial fluid collection. POSTERIOR FOSSA: No signal alteration. No hemorrhage. No edema, masses or mass effect. Internal naya tory canals, cerebello-pontine angles, mastoids normal. DIFFUSION: Negative for acute or sub-acute infarction. ORBITS: No masses. Globes normal. PARANASAL SINUSES: No fluid levels. Mucosa normal. OTHER: No other significant finding. IMPRESSION: Negative for acute or sub-acute infarction. EVIDENCE OF ACUTE STROKE: NO. TECHNICAL DOCUMENTATION: JOB ID: [id number] [id number] [employer]- All Rights Reserved Reading location - IP/workstation name: [email or web address]
[2020-05-05] MEDS ORDERED: AMLODIPINE BESYLATE 5 MG TABLET PO ONE (12:03)
[2020-05-05] MEDS ORDERED: ACETAMINOPHEN 325 MG TABLET PO PRN (12:08)
[2020-05-05] MEDS ORDERED: IBUPROFEN 400 MG TABLET PO PRN (12:09)
[2020-05-05] MEDS: IPRATROPIUM/ALBUTEROL 0.5-2.5 MG/3 ML AMPUL NEB PRN ×2 (12:29→20:07)
--- NOTE | 2020-05-05 13:44 | PDOC PROGRESS REPORT ---
Subjective Progress Note for:: 05/05/20 Subjective:: Patient feels well today just continues to feel very fatigued. Denies any chest pain or shortness of breath at the time. Reason For Visit: M17.12 UNILATERAL PRIMARY OSTEOARTHRITIS, LEFT KNE Physical Exam Vital Signs: Temp Pulse Resp BP Pulse Ox 98.7 F 92 18 160/88 H 93 05/05/20 11:57 05/05/20 12:29 05/05/20 12:29 05/05/20 11:57 05/05/20 12:29 Intake & Output 05/04/20 05/05/20 05/06/20 06:59 06:59 06:59 Intake Total 1090 1050 50 Output Total 500 550 Balance 590 500 50 Weight 95.3 kg 97.8 kg General appearance: PRESENT: no acute distress, cooperative Neck exam: ABSENT: JVD Respiratory exam: PRESENT: symmetrical, unlabored. ABSENT: accessory muscle use, prolonged expiratory phas, retraction, tachypnea, wheezes GI/Abdominal exam: PRESENT: normal bowel sounds, soft. ABSENT: rebound, rigid, tenderness Neurological exam: PRESENT: alert, awake, oriented to person, oriented to place, oriented to time, motor sensory deficit - 3-4/5 strength times all 4 extremities. Weakness generalized nonfocal.. ABSENT: CN II-XII grossly intact - Dysarthric, aphasic Results Laboratory Results: 05/05/20 05:00 05/05/20 05:00 05/05/20 05/05/20 05:00 05:00 WBC 9.8 RBC 2.67 L Hgb 8.9 L Hct 26.3 L MCV 98 H MCH 33.4 MCHC 34.0 RDW 15.4 H Plt Count 644 H Sodium 133.3 L Potassium 4.7 Chloride 101 Carbon Dioxide 23 Anion Gap 9 BUN 25 H Creatinine 0.99 Est GFR ( Amer) > 60 Glucose 115 H Calcium 8.7 Magnesium 2.1 Impressions: Knee X-Ray 04/25/20 00:00 IMPRESSION: Status post total knee arthroplasty. Intraarticular and subcuta neous gas are not an unexpected finding in the immediate postoperative setting. No evidence of osseous injury. Chest CT 04/28/20 00:00 IMPRESSION: There is interlobular septal thickening with bibasilar airspace opacities. This likely reflects some edema. There may also be superimposed infection. The main pulmonary artery is enlarged, which can be seen with pulmonary artery hypertension. Chest X-Ray 04/30/20 00:00 IMPRESSION: Fluid overload or congestive failure, more prominent than on plain films from 04/28/[address] 04/30/20 00:00 IMPRESSION: NORMAL BRAIN CT WITHOUT CONTRAST. EVIDENCE OF ACUTE STROKE: NO. KUB X-Ray 05/01/20 07:11 IMPRESSION: Nasoenteric tube tip overlies gastric body. Left lower lobe consolidation with small bilateral effusions. Head MRI 05/05/20 00:00 IMPRESSION: Negative for acute or sub-acute infarction. EVIDENCE OF ACUTE STROKE: NO. Assessment and Plan - Diagnosis (1) Aspiration pneumonia Qualifiers: Aspiration pneumonia type: unspecified Laterality: right Lung location: lower lobe of lung Qualified Code(s): J69.0 - Pneumonitis due to inhalation of food and vomit Is this a current diagnosis for this admission?: Yes Plan: Currently on ceftriaxone but has been on this for a while and likely ending therapy soon. SPO2 is adequate on room air. CBC and BMP reviewed. Leukocytos is is resolved. Evaluated by speech pathologist who states mild oral and pharyngeal dysphasia recommends pured thin liquids with small bites and sips. (2) Physical deconditioning Is this a current diagnosis for this admission?: Yes Plan: Patient is extremely deconditioned with generalized nonfocal weakness. He requires significant assistance for ambulation. Since the patient was ambulatory prior to hospitalization. Patient's weakness is in all extremities could be secondary to critical illness myopathy including recent prolonged sedation with phenobarbital. He will need aggressive physical rehabilitation and placement to rehab upon discharge. (3) Dysarthria Is this a current diagnosis for this admission?: Yes Plan: Etiology is still unclear at this point. Uncertain what patient's prehospital baseline is in terms of his speech but he informs me that his dysarthria is new during this admission. MRI of the brain interestingly was pretty much unremarkable and I have discussed the findings over the phone with the radiologist who confirms that his brain looks as expected for his age and really no findings to suggest stroke or Warnicke's. Besides, receptor is not really typical of or any case. May be long-lasting effect from phenobarbital use but this is uncertain. At this point, we will continue to monitor patient and patient will need con tinued speech and language therapy. (4) Hypoalbuminemia due to protein-calorie malnutrition Is this a current diagnosis for this admission?: Yes Plan: Significantly malnourished. Has had poor caloric intake when at home as he drin ks a gallon of alcohol a day. Encouraged adequate nutrition. (5) Alcohol abuse Is this a current diagnosis for this admission?: Yes Plan: Drinks a gallon of alcohol a day. Patient currently on thiamine and folic acid and multivitamin supplements. Encouraged also alcohol cessation. Check vitamin B12 level. (6) Alcohol withdrawal Qualifiers: Complication of substance-induced condition: with delirium Qualified Code(s): F10.231 - Alcohol dependence with withdrawal delirium Is this a current diagnosis for this admission?: Yes Plan: Resolved (7) Fibrillary glomerulonephritis Is this a current diagnosis for this admission?: Yes Plan: Not active. (8) HTN (hypertension) Qualifiers: Hypertension type: essential hypertension Qualified Code(s): I10 - Essential (primary) hypertension Is this a current diagnosis for this admission?: Yes Plan: Inadequately controlled. Continue on amlodipine (9) Hyponatremia Is this a current diagnosis for this admission?: Yes Plan: Stable (10) Status post left knee replacement Is this a current diagnosis for this admission?: Yes Plan: Pain control with Tylenol and Motrin. Lovenox for DVT prophylaxis. - Time Time Spent with patient: Less than 15 minutes
[2020-05-06] MEDS: IPRATROPIUM/ALBUTEROL 0.5-2.5 MG/3 ML AMPUL NEB PRN ×2 (06:11→20:09)
[2020-05-06] MEDS: ENOXAPARIN SODIUM INJ 40 MG/0.4 ML DISP.SYRIN SUBCUT SCH (09:17)
[2020-05-06] MEDS: MULTIVITAMIN TABLET PO SCH (09:17)
[2020-05-06] MEDS: CYANOCOBALAMIN (VITAMIN B-12) 1,000 MCG TABLET PO SCH (09:17)
[2020-05-06] MEDS: FOLIC ACID 1 MG TABLET PO SCH (09:17)
[2020-05-06] MEDS: CETIRIZINE 10 MG TABLET NG SCH (09:17)
[2020-05-06] MEDS: AMLODIPINE BESYLATE 5 MG TABLET PO SCH (09:17)
[2020-05-06] MEDS: THIAMINE HCL 100 MG TABLET PO SCH (09:17)
--- NOTE | 2020-05-06 11:32 | PDOC PROGRESS REPORT ---
Subjective Progress Note for:: 05/06/20 Subjective:: Patient seems a lot better today. His speech has improved. He generally feels better and states that he is breathing better. Still having a tough time ambulating and requiring quite a bit of assistance. Denies any chest pains. He is oxygen saturation do drop while ambulating with physical therapy to the low 80s on room air. Reason For Visit: M17.12 UNILATERAL PRIMARY OSTEOARTHRITIS, LEFT KNE Physical Exam Vital Signs: Temp Pulse Resp BP Pulse Ox 98.4 F 92 18 162/85 H 93 05/06/20 07:43 05/06/20 07:43 05/06/20 07:43 05/06/20 07:43 05/06/20 07:43 Intake & Output 05/05/20 05/06/20 05/07/20 06:59 06:59 06:59 Intake Total 1050 1115 Output Total 550 1400 Balance 500 -285 Weight 97.8 kg 98.6 kg General appearance: PRESENT: no acute distress, cooperative Neck exam: ABSENT: JVD Respiratory exam: PRESENT: crackles, symmetrical, unlabored. ABSENT: tachypnea, wheezes Cardiovascular exam: PRESENT: RRR, +S1, +S2. ABSENT: tachycardia GI/Abdominal exam: PRESENT: soft. ABSENT: rebound, rigid, tenderness Neurological exam: PRESENT: alert, awake, oriented to person, oriented to place, oriented to time, other - Dysarthria has significantly improved. ABSENT: aphasic Psychiatric exam: PRESENT: normal mood Results Laboratory Results: 05/05/20 05:00 05/05/20 05:00 05/06/20 05:14 Vitamin B12 > 1000.0 H Impressions: Knee X-Ray 04/25/20 00:00 IMPRESSION: Status post total knee arthroplasty. Intraarticular and subcutaneous gas are not an unexpected finding in the immediate postoperative setting. No evidence of osseous injury. Chest CT 04/28/20 00:00 IMPRESSION: There is interlobular septal thickening with bibasilar airspace opacities. This likely reflects some edema. There may also be superimposed infection. The main pulmonary artery is enlarged, which can be seen with pulmonary artery hypertension. Chest X-Ray 04/30/20 00:00 IMPRESSION: Fluid overload or congestive failure, more prominent than on plain films from 04/28/[address] 04/30/20 00:00 IMPRESSION: NORMAL BRAIN CT WITHOUT CONTRAST. EVIDENCE OF ACUTE STROKE: NO. KUB X-Ray 05/01/20 07:11 IMPRESSION: Nasoenteric tube tip overlies gastric body. Left lower lobe consolidation with small bilateral effusions. Head MRI 05/05/20 00:00 IMPRESSION: Negative for acute or sub-acute infarction. EVIDENCE OF ACUTE STROKE: NO. Assessment and Plan - Diagnosis (1) Aspiration pneumonia Qualifiers: Aspiration pneumonia type: unspecified Laterality: right Lung location: lower lobe of lung Qualified Code(s): J69.0 - Pneumonitis due to inhalation of food and vomit Is this a current diagnosis for this admission?: Yes Plan: Was on on ceftriaxone but has been on this for a while and likely ending therapy soon. I will DC ceftriaxone and give 2 days of Augmentin. CBC and BMP reviewed. Leukocytosis is resolved. Evaluated by speech pathologist who states mild oral and pharyngeal dysphasia recommends pured thin liquids with small bites and sips. May be able to actually advance diet now that patient's dysarthria has improved. (2) Hypoxia Is this a current diagnosis for this admission?: Yes Plan: Not hypoxic into the low 80s on ambulation today with physical therapy but resolves on about 2 L nasal cannula. He does look a lot better and is actually breathing better. Lung auscultation bilateral crackles. I will give just a few doses of IV Lasix to see if this improves patient's oxygenation. (3) Physical deconditioning Is this a current diagnosis for this admission?: Yes Plan: Patient is extremely deconditioned with generalized nonfocal weakness. He re quires significant assistance for ambulation. Since the patient was ambulatory prior to hospitalization. Patient's weakness is in all extremities could be secondary to critical illness myopathy including recent prolonged sedation with phenobarbital. He will need aggressive physical rehabilitation and placement to rehab upon discharge. (4) Dysarthria Is this a current diagnosis for this admission?: Yes Plan: MRI of the brain was essentially unremarkable without any evidence of stroke or any findings suggestive of structural disease. Likely his dysarthria was all metabolic and secondary to significantly prolonged effect of phenobarbital he received. However, his dysarthria is a lot better today and likely I expect should return to baseline. We will continue speech therapy for now. (5) Hypoalbuminemia due to protein-calorie malnutrition Is this a current diagnosis for this admission?: Yes Plan: Significantly malnourished. Has had poor caloric intake when at home as he drinks a gallon of alcohol a day. Encouraged adequate nutrition. (6) Alcohol abuse Is this a current diagnosis for this admission?: Yes (7) Alcohol withdrawal Qualifiers: Complication of substance-induced condition: with delirium Qualified Code(s): F10.231 - Alcohol dependence with withdrawal delirium Is this a current diagnosis for this admission?: Yes Plan: Resolved (8) Fibrillary glomerulonephritis Is this a current diagnosis for this admission?: Yes (9) HTN (hypertension) Qualifiers: Hypertension type: essential hypertension Qualified Code(s): I10 - Essential (primary) hypertension Is this a current diagnosis for this admission?: Yes Plan: Inadequately controlled. Started on amlodipine this admission. Will give patient some time to reach max effect of current amlodipine dose. (10) Hyponatremia Is this a current diagnosis for this admission?: Yes (11) Status post left knee replacement Is this a current diagnosis for this admission?: Yes Plan: Pain control with Tylenol and Motrin. Lovenox for DVT prophylaxis. - Time Time Spent with patient: Less than 15 minutes
[2020-05-06] MEDS ORDERED: FUROSEMIDE INJ/PF 40 MG/4 ML SDV IV ONE (12:00)
[2020-05-06] MEDS: AMOXICILLIN TR/POT CLAVULANATE 500-125 MG TAB PO SCH ×2 (13:48→22:34)
--- NOTE | 2020-05-06 15:53 | PDOC PROGRESS REPORT ---
Subjective Progress Note for:: 05/06/20 Subjective:: Patient appears more lucid today than he has since postop day 0. Continues to improve with mentation and ability to comply with physical activity. Nursing staff explains that he is max assist still with physical therapy Reason For Visit: M17.12 UNILATERAL PRIMARY OSTEOARTHRITIS, LEFT KNE Physical Exam Vital Signs: Temp Pulse Resp BP Pulse Ox 97.3 F 92 17 158/83 H 93 05/06/20 12:15 05/06/20 14:00 05/06/20 13:26 05/06/20 12:15 05/06/20 13:26 Intake & Output 05/05/20 05/06/20 05/07/20 06:59 06:59 06:59 Intake Total 1050 1115 240 Output Total 550 1400 650 Balance 500 -285 -410 Weight 97.8 kg 98.6 kg Physical Exam: No acute distress, lethargic, speech improved. The patient is alert and oriented x3 on my visit today and includes calling me by name. Left lower extremity -Pulses 2+ distally -Compartments soft -Sensation grossly intact to L3-4-5 S1 -Motor grossly intact to EHL TA gastroc and quad -Mild to moderate swelling in the left ankle. -Wound is clean dry and intact, appears healthy, no signs of infection. -Mild to moderate effusion. Results Laboratory Results: 05/05/20 05:00 05/05/20 05:00 05/06/20 05:14 Vitamin B12 > 1000.0 H Impressions: Knee X-Ray 04/25/20 00:00 IMPRESSION: Status post total knee arthroplasty. Intraarticular and subcutaneous gas are not an unexpected finding in the immediate postoperative setting. No evidence of osseous injury. Chest CT 04/28/20 00:00 IMPRESSION: There is interlobular septal thickening with bibasilar airspace opacities. This likely reflects some edema. There may also be superimposed infection. The main pulmonary artery is enlarged, which can be seen with pulmonary artery hypertension. Chest X-Ray 04/30/20 00:00 IMPRESSION: Fluid overload or congestive failure, more prominent than on plain films from 04/28/[address] 04/30/20 00:00 IMPRESSION: NORMAL BRAIN CT WITHOUT CONTRAST. EVIDENCE OF ACUTE STROKE: NO. KUB X-Ray 05/01/20 07:11 IMPRESSION: Nasoenteric tube tip overlies gastric body. Left lower lobe consolidation with small bilateral effusions. Head MRI 05/05/20 00:00 IMPRESSION: Negative for acute or sub-acute infarction. EVIDENCE OF ACUTE STROKE: NO. Assessment & Plan - Diagnosis (1) Status post left knee replacement Is this a current diagnosis for this admission?: Yes Plan: Encourage out of bed with physical therapy No further wound care needed on the left knee DVT prophylaxis per primary team Follow my office in 2 weeks for postoperative evaluation (2) Hyponatremia Is this a current diagnosis for this admission?: Yes (3) Alcohol abuse Is this a current diagnosis for this admission?: Yes - Time Time Spent with patient: Less than 15 minutes
[2020-05-06] MEDS: FUROSEMIDE INJ/PF 40 MG/4 ML SDV IV SCH (17:09)
[2020-05-07] MEDS: AMOXICILLIN TR/POT CLAVULANATE 500-125 MG TAB PO SCH ×3 (05:30→21:07)
[2020-05-07] MEDS ORDERED: FLUMAZENIL INJ 0.5 MG/5 ML VIAL IV ONE ×2 (05:40→05:43)
[2020-05-07] MEDS ORDERED: DILTIAZEM HCL INJ 25 MG/5 ML VIAL IV ONE (05:46)
[2020-05-07] MEDS: IPRATROPIUM/ALBUTEROL 0.5-2.5 MG/3 ML AMPUL NEB PRN ×2 (05:49→09:53)
[2020-05-07 05:50] LABS: ANION GAP 6 (5-19); BLOOD UREA NITROGEN 22 mg/dL (7-20); CARBON DIOXIDE 30 mmol/L (22-30); CHLORIDE 96 mmol/L (98-107); GLUCOSE 94 mg/dL (75-110); POTASSIUM 4.5 mmol/L (3.6-5.0)
--- NOTE | 2020-05-07 09:38 | RADIOLOGY REPORT (SQ) ---
EXAM DESCRIPTION: CHEST 2 VIEWS IMAGES COMPLETED DATE/TIME: 05/07/2020 8:11 am REASON FOR STUDY: re-evaluate pna/edema M17.12 UNILATERAL PRIMARY OSTEOARTHRITIS, LEFT KNEE COMPARISON: 04/30/2020 NUMBER OF VIEWS: Two view TECHNIQUE: Frontal and lateral radiographic images of the chest acquired. LIMITATIONS: None. FINDINGS: LUNGS AND PLEURA: Improved aeration in both lungs with no residual infiltrate. Trace pleu ral effusions. MEDIASTINUM AND HILAR STRUCTURES: Stable heart size and mediastinal structures. HEART AND VASCULAR STRUCTURES: Stable appearance. BONES: No acute findings. HARDWARE: None in the chest. OTHER: No other significant finding. IMPRESSION: Improved aeration with residual small effusions. TECHNICAL DOCUMENTATION: JOB ID: [id number] 2010 [employer]- All Rights Reserved Reading location - IP/workstation name: [email or web address]
[2020-05-07] MEDS: FOLIC ACID 1 MG TABLET PO SCH (10:11)
[2020-05-07] MEDS: THIAMINE HCL 100 MG TABLET PO SCH (10:11)
[2020-05-07] MEDS: MULTIVITAMIN TABLET PO SCH (10:11)
[2020-05-07] MEDS: CETIRIZINE 10 MG TABLET PO SCH (10:11)
[2020-05-07] MEDS: AMLODIPINE BESYLATE 5 MG TABLET PO SCH (10:11)
[2020-05-07] MEDS: CYANOCOBALAMIN (VITAMIN B-12) 1,000 MCG TABLET PO SCH (10:11)
[2020-05-07] MEDS: ENOXAPARIN SODIUM INJ 40 MG/0.4 ML DISP.SYRIN SUBCUT SCH (10:13)
[2020-05-07] MEDS: FUROSEMIDE INJ/PF 40 MG/4 ML SDV IV SCH (12:20)
--- NOTE | 2020-05-07 16:44 | PDOC PROGRESS REPORT ---
Subjective Progress Note for:: 05/07/20 Subjective:: Patient continues to improve terms of his breathing. Also he is dysarthria continues to resolve. Reason For Visit: M17.12 UNILATERAL PRIMARY OSTEOARTHRITIS, LEFT KNE Physical Exam Vital Signs: Temp Pulse Resp BP Pulse Ox 98.4 F 88 16 130/68 H 100 05/07/20 15:32 05/07/20 15:32 05/07/20 15:32 05/07/20 15:32 05/07/20 15:32 Pulse Oximeter Ambulatory Start: 05/07/20 08:10 Freq: DARRELL Status: Complete Protocol: Document 05/07/20 08:10 [facility] (Rec: 05/07/20 09:41 [facility] [id number]) Exercise Oximetry Treatment Ambulating SpO2 Charge Now Yes Oxygen Delivery Method Nasal Cannula Oxygen Flow Rate (L/min) 0.5 Recovery O2 Saturation by Pulse Oximetry 94 Pulse Rate 105 Respiratory Rate 18 Exercise O2 Saturation by Pulse Oximetry 94 Pulse Rate 105 Respiratory Rate 18 Resting O2 Saturation by Pulse Oximetry 95 Pulse Rate 92 Respiratory Rate 18 Ambulation Distance (ft) 4 Exercise Tolerance Fair Additional RT Notes Other Patient was on .5lpm NC and 02 saturation was 95%. Patient walked 4 feet with 02 saturation remaining @ 95%. Patient's oxygen was removed and on RA with resting 02 saturation 94%/HR105. Patient again was walked 4feet back to bed with 02 saturation noted to decrease 59 87%/HR 105. Patient was placed back on NC .5lpm at this time. Intake & Output 05/06/20 05/07/20 05/08/20 06:59 06:59 06:59 Intake Total 1115 740 550 Output Total 1400 3150 500 Balance -285 -2410 50 Weight 98.6 kg 94.8 kg General appearance: PRESENT: no acute distress, cooperative Respiratory exam: PRESENT: clear to auscultation leonardo, symmetrical, unlabored. ABSENT: crackles, tachypnea, wheezes Cardiovascular exam: PRESENT: RRR, +S1, +S2. ABSENT: tachycardia Neurological exam: PRESENT: alert, awake, oriented to person, oriented to place, oriented to time, oriented to situation, other - Dysarthria is resolving. ABSENT: aphasic Results Laboratory Results: 05/05/20 05:00 05/07/20 04:19 05/07/20 04:19 Sodium 131.8 L Potassium 4.5 Chloride 96 L Carbon Dioxide 30 Anion Gap 6 BUN 22 H Creatinine 1.04 Est GFR ( Amer) > 60 Glucose 94 Calcium 9.0 Magnesium 1.7 Impressions: Knee X-Ray 04/25/20 00:00 IMPRESSION: Status post total knee arthroplasty. Intraarticular and subcutaneous gas are not an unexpected finding in the immediate postoperative setting. No evidence of osseous injury. Chest CT 04/28/20 00:00 IMPRESSION: There is interlobular septal thickening with bibasilar airspace opacities. This likely reflects some edema. There may also be superimposed infection. The main pulmonary artery is enlarged, which can be seen with pulmonary artery hypertension. Head CT 04/30/20 00:00 IMPRESSION: NORMAL BRAIN CT WITHOUT CONTRAST. EVIDENCE OF ACUTE STROKE: NO. KUB X-Ray 05/01/20 07:11 IMPRESSION: Nasoenteric tube tip overlies gastric body. Left lower lobe consolidation with small bilateral effusions. Head MRI 05/05/20 00:00 IMPRESSION: Negative for acute or sub-acute infarction. EVIDENCE OF ACUTE STROKE: NO. Chest X-Ray 05/07/20 07:00 IMPRESSION: Improved aeration with residual small effusions. Assessment and Plan - Diagnosis (1) Aspiration pneumonia Qualifiers: Aspiration pneumonia type: unspecified Laterality: right Lung location: lower lobe of lung Qualified Code(s): J69.0 - Pneumonitis due to inhalation of food and vomit Is this a current diagnosis for this admission?: Yes Plan: Was on on ceftriaxone but has been on this for a while and likely ending therapy soon. Continue Augmentin for 1-2 more days. CBC and BMP reviewed. Leukocytosis is resolved. Evaluated by speech pathologist and diet has been advanced. Patient is ready for discharge and awaiting placement at SNF (2) Hypoxia Is this a current diagnosis for this admission?: Yes Plan: Seems to be almost fully resolved following IV diuresis yesterday. Give 1 more dose of IV Lasix this morning. Ambulatory pulse ox showed SPO2 mostly around 94% but did briefly desat to 87% when he returned back to bed. I believe patient should be able to be taken off oxygen supplementation. Continue incent steve spirometer. Repeat chest x-ray shows essentially resolution of airspace disease and pulmonary vascular congestion. (3) Physical deconditioning Is this a current diagnosis for this admission?: Yes Plan: Patient is extremely deconditioned with generalized nonfocal weakness. He requires significant assistance for ambulation. Since the patient was ambulatory prior to hospitalization. Patient's weakness is in all extremities could be secondary to critical illness myopathy including recent prolonged sedation with phenobarbital. He will need aggressive physical rehabilitation and placement to rehab upon discharge. Currently awaiting placement at SNF. Patient ready for discharge. (4) Dysarthria Is this a current diagnosis for this admission?: Yes Plan: MRI of the brain was essentially unremarkable without any evidence of stroke or any findings suggestive of structural disease. Likely his dysarthria was all metabolic and secondary to significantly prolonged effect of phenobarbital he received. Dysarthria continues to show remarkable improvement each day. I expect he should return to baseline once the medication fully wears out of his system. (5) Hypoalbuminemia due to protein-calorie malnutrition Is this a current diagnosis for this admission?: Yes Plan: Significantly malnourished. Has had poor caloric intake when at home as he drinks a gallon of alcohol a day. Encouraged adequate nutrition. (6) Alcohol abuse Is this a current diagnosis for this admission?: Yes Plan: Drinks a gallon of alcohol a day. Patient currently on thiamine and folic acid and multivitamin supplements. Encouraged also alcohol cessation. No evidence of vitamin B12 deficiency based on blood work. (7) Alcohol withdrawal Qualifiers: Complication of substance-induced condition: with delirium Qualified Code(s): F10.231 - Alcohol dependence with withdrawal delirium Is this a current diagnosis for this admission?: Yes Plan: Resolved. Currently out of withdrawal window. (8) Fibrillary glomerulonephritis Is this a current diagnosis for this admission?: Yes Plan: Not active. (9) HTN (hypertension) Qualifiers: Hypertension type: essential hypertension Qualified Code(s): I10 - Essential (primary) hypertension Is this a current diagnosis for this admission?: Yes Plan: Inadequately controlled. Started on amlodipine this admission. Will give patient some time to reach max effect of current amlodipine dose. (10) Hyponatremia Is this a current diagnosis for this admission?: Yes Plan: Stable (11) Status post left knee replacement Is this a current diagnosis for this admission?: Yes Plan: Pain control with Tylenol and Motrin. Lovenox for DVT prophylaxis. Follow-up with Dr. Lemus in the office as planned. - Time Time Spent with patient: Less than 15 minutes
[2020-05-08] MEDS: AMOXICILLIN TR/POT CLAVULANATE 500-125 MG TAB PO SCH (05:05)
[2020-05-08] MEDS: IPRATROPIUM/ALBUTEROL 0.5-2.5 MG/3 ML AMPUL NEB PRN (08:35)
[2020-05-08] MEDS: CETIRIZINE 10 MG TABLET PO SCH (10:07)
[2020-05-08] MEDS: LOSARTAN POTASSIUM 50 MG TABLET PO SCH (10:07)
[2020-05-08] MEDS: THIAMINE HCL 100 MG TABLET PO SCH (10:07)
[2020-05-08] MEDS: CYANOCOBALAMIN (VITAMIN B-12) 1,000 MCG TABLET PO SCH (10:08)
[2020-05-08] MEDS: FOLIC ACID 1 MG TABLET PO SCH (10:08)
[2020-05-08] MEDS: FUROSEMIDE 20 MG TABLET PO SCH (10:08)
[2020-05-08] MEDS: CARVEDILOL 6.25 MG TABLET PO SCH ×2 (10:08→21:29)
[2020-05-08] MEDS: SPIRONOLACTONE 25 MG TABLET PO SCH (10:08)
[2020-05-08] MEDS: ENOXAPARIN SODIUM INJ 40 MG/0.4 ML DISP.SYRIN SUBCUT SCH (10:08)
[2020-05-08] MEDS: MULTIVITAMIN TABLET PO SCH (10:08)
--- NOTE | 2020-05-08 16:24 | PDOC PROGRESS REPORT ---
Subjective Progress Note for:: 05/08/20 Subjective:: Patient is doing well today. He denies any shortness of breath or chest pain. Denies any fever or chills. Reason For Visit: M17.12 UNILATERAL PRIMARY OSTEOARTHRITIS, LEFT KNE Physical Exam Vital Signs: Temp Pulse Resp BP Pulse Ox 98.9 F 88 18 133/68 H 95 05/08/20 11:00 05/08/20 14:00 05/08/20 11:00 05/08/20 11:00 05/08/20 11:00 Pulse Oximeter Ambulatory Start: 05/07/20 08:10 Freq: DARRELL Status: Complete Protocol: Document 05/07/20 08:10 [facility] (Rec: 05/07/20 09:41 [facility] [id number]) Exercise Oximetry Treatment Ambulating SpO2 Charge Now Yes Oxygen Delivery Method Nasal Cannula Oxygen Flow Rate (L/min) 0.5 Recovery O2 Saturation by Pulse Oximetry 94 Pulse Rate 105 Respiratory Rate 18 Exercise O2 Saturation by Pulse Oximetry 94 Pulse Rate 105 Respiratory Rate 18 Resting O2 Saturation by Pulse Oximetry 95 Pulse Rate 92 Respiratory Rate 18 Ambulation Distance (ft) 4 Exercise Tolerance Fair Additional RT Notes Other Patient was on .5lpm NC and 02 saturation was 95%. Patient walked 4 feet with 02 saturation remaining @ 95%. Patient's oxygen was removed and on RA with resting 02 saturation 94%/HR105. Patient again was walked 4feet back to bed with 02 saturation noted to decrease 59 87%/HR 105. Patient was placed back on NC .5lpm at this time. Intake & Output 05/07/20 05/08/20 05/09/20 06:59 06:59 06:59 Intake Total 740 1250 480 Output Total 3150 1750 225 Balance -2410 -500 255 Weight 94.8 kg 94.8 kg General appearance: PRESENT: no acute distress, cooperative Neck exam: ABSENT: JVD Respiratory exam: PRESENT: symmetrical, unlabored. ABSENT: tachypnea, wheezes Cardiovascular exam: PRESENT: RRR, +S1, +S2. ABSENT: tachycardia GI/Abdominal exam: PRESENT: soft. ABSENT: rebound, rigid, tenderness Neurological exam: PRESENT: alert, awake, oriented to person, oriented to place, oriented to time Results Laboratory Results: 05/05/20 05:00 05/07/20 04:19 Impressions: Knee X-Ray 04/25/20 00:00 IMPRESSION: Status post total knee arthroplasty. Intraarticular and subcutaneous gas are not an unexpected finding in the immediate postoperative setting. No evidence of osseous injury. Chest CT 04/28/20 00:00 IMPRESSION: There is interlobular septal thickening with bibasilar airspace opacities. This likely reflects some edema. There may also be superimposed infection. The main pulmonary artery is enlarged, which can be seen with pulmonary artery hypertension. Head CT 04/30/20 00:00 IMPRESSION: NORMAL BRAIN CT WITHOUT CONTRAST. EVIDENCE OF ACUTE STROKE: NO. KUB X-Ray 05/01/20 07:11 IMPRESSION: Nasoenteric tube tip overlies gastric body. Left lower lobe consolidation with small bilateral effusions. Head MRI 05/05/20 00:00 IMPRESSION: Negative for acute or sub-acute infarction. EVIDENCE OF ACUTE STROKE: NO. Chest X-Ray 05/07/20 07:00 IMPRESSION: Improved aeration with residual small effusions. Assessment and Plan - Diagnosis (1) Aspiration pneumonia Qualifiers: Aspiration pneumonia type: unspecified Laterality: right Lung location: lower lobe of lung Qualified Code(s): J69.0 - Pneumonitis due to inhalation of food and vomit Is this a current diagnosis for this admission?: Yes Plan: Was on on ceftriaxone but has been on this for a while then changed to Augmentin. Currently completed therapy. Evaluated by speech pathologist and diet has been advanced. Patient is ready for discharge and awaiting placement at SNF (2) Hypoxia Is this a current diagnosis for this admission?: Yes Plan: Likely secondary to patient's having pulmonary edema and pneumonia. Currently r esolved following IV diuresis. Doing well on room air. (3) Acute on chronic systolic heart failure Is this a current diagnosis for this admission?: Yes Plan: TTE on 04/29/2020 was poor quality but showed estimated EF of 30 to 35% with normal RV size and function, and moderate pulmonary hypertension by echo. I suspect his cardiomyopathy is likely secondary to heavy alcohol consumption. May still need ischemic evaluation as outpatient. Diuresed with IV Lasix. Started on losartan, Coreg, spironolactone and small dose of p.o. Lasix. Keep on 1500 cc fluid restriction. Patient is euvolemic at this point. Outpatient cardiology follow-up for further work-up. (4) Physical deconditioning Is this a current diagnosis for this admission?: Yes Plan: Patient is extremely deconditioned with generalized nonfocal weakness. Patient's weakness is in all extremities could be secondary to critical illness myopathy including recent prolonged sedation with phenobarbital. He will need aggressive physical rehabilitation and placement to rehab upon discharge. Currently awaiting placement at SNF. Patient remains ready for discharge. (5) Dysarthria Is this a current diagnosis for this admission?: Yes Plan: MRI of the brain was essentially unremarkable without any evidence of stroke or any findings suggestive of structural disease. Likely his dysarthria was all metabolic and secondary to significantly prolonged effect of phenobarbital he received. Dysarthria continues to show remarkable improvement each day. I expect he should return to baseline once the medication fully wears out of his system. (6) Hypoalbuminemia due to protein-calorie malnutrition Is this a current diagnosis for this admission?: Yes Plan: Significantly malnourished. Has had poor caloric intake when at home as he drinks a gallon of alcohol a day. Encouraged adequate nutrition. (7) Alcohol abuse Is this a current diagnosis for this admission?: Yes Plan: Drinks a gallon of alcohol a day. Patient currently on thiamine and folic acid and multivitamin supplements. Encouraged also alcohol cessation. No evidence of vitamin B12 deficiency based on blood work. (8) Alcohol withdrawal Qualifiers: Complication of substance-induced condition: with delirium Qualified Code(s): F10.231 - Alcohol dependence with withdrawal delirium Is this a current diagnosis for this admission?: Yes Plan: Treated for withdrawal while in the hospital but currently resolved. Currently out of withdrawal window. (9) Fibrillary glomerulonephritis Is this a current diagnosis for this admission?: Yes Plan: Not active. (10) HTN (hypertension) Qualifiers: Hypertension type: essential hypertension Qualified Code(s): I10 - Essen tial (primary) hypertension Is this a current diagnosis for this admission?: Yes Plan: Amlodipine discontinued. Now on losartan, Coreg, Lasix and spironolactone given cardiomyopathy. (11) Hyponatremia Is this a current diagnosis for this admission?: Yes Plan: Initially hyponatremic to 118 earlier in admission and adequately treated. Sodium has remained stable over the past several days. Last measured on 131. Will check BMP in the morning (12) Status post left knee replacement Is this a current diagnosis for this admission?: Yes Plan: Pain control with Tylenol and Motrin. Lovenox for DVT prophylaxis. Follow-up with Dr. Lemus in the office as planned. - Time Time Spent with patient: Less than 15 minutes
[2020-05-09 07:06] LABS: ANION GAP 7 (5-19); BLOOD UREA NITROGEN 14 mg/dL (7-20); CALCIUM 9.2 mg/dL (8.4-10.2); CARBON DIOXIDE 31 mmol/L (22-30); CHLORIDE 94 mmol/L (98-107); GLUCOSE 98 mg/dL (75-110); POTASSIUM 4.1 mmol/L (3.6-5.0)
[2020-05-09] MEDS: ENOXAPARIN SODIUM INJ 40 MG/0.4 ML DISP.SYRIN SUBCUT SCH (10:34)
[2020-05-09] MEDS: THIAMINE HCL 100 MG TABLET PO SCH (10:35)
[2020-05-09] MEDS: FOLIC ACID 1 MG TABLET PO SCH (10:35)
[2020-05-09] MEDS: CETIRIZINE 10 MG TABLET PO SCH (10:35)
[2020-05-09] MEDS: SPIRONOLACTONE 25 MG TABLET PO SCH (10:35)
[2020-05-09] MEDS: CYANOCOBALAMIN (VITAMIN B-12) 1,000 MCG TABLET PO SCH (10:35)
[2020-05-09] MEDS: LOSARTAN POTASSIUM 50 MG TABLET PO SCH (10:35)
[2020-05-09] MEDS: MULTIVITAMIN TABLET PO SCH (10:35)
[2020-05-09] MEDS: FUROSEMIDE 20 MG TABLET PO SCH (10:36)
[2020-05-09] MEDS: CARVEDILOL 6.25 MG TABLET PO SCH (10:36)
--- NOTE | 2020-05-09 14:15 | PDOC DISCHARGE SUMMARY ---
Impression - Admit/DC Date/PCP Admission Date/Primary Care Provider: 04/28/20 11:07 [facility] DO Discharge Date: 05/09/20 - Discharge Diagnosis (1) Aspiration pneumonia Is this a current diagnosis for this admission?: Yes (2) Acute on chronic systolic heart failure Is this a current diagnosis for this admission?: Yes (3) Hypoxia Is this a current diagnosis for this admission?: Yes (4) Physical deconditioning Is this a current diagnosis for this admission?: Yes (5) Dysarthria Is this a current diagnosis for this admission?: Yes (6) Hypoalbuminemia due to protein-calorie malnutrition Is this a current diagnosis for this admission?: Yes (7) Alcohol abuse Is this a current diagnosis for this admission?: Yes (8) Alcohol withdrawal Is this a current diagnosis for this admission?: Yes (9) Fibrillary glomerulonephritis Is this a current diagnosis for this admission?: Yes (10) Hyponatremia Is this a current diagnosis for this admission?: Yes (11) HTN (hypertension) Is this a current diagnosis for this admission?: Yes (12) Status post left knee replacement Is this a current diagnosis for this admission?: Yes - Additional Information Resuscitation Status: Full Code Discharge Diet: Cardiac Discharge Activity: Activity As Tolerated Referrals: [facility] DO [Primary Care Provider] - FREDDIE MOORE MD [ACTIVE STAFF] - TAMI HWANG JR, DO [ACTIVE PROVISIONAL STAFF] - Prescriptions: Spironolactone [Aldactone 25 mg Tablet] 25 mg PO DAILY #30 tablet Carvedilol [Coreg 6.25 mg Tablet] 6.25 mg PO Q12 #60 tablet Losartan Potassium [Cozaar 50 mg Tablet] 50 mg PO DAILY #30 tablet Folic Acid [Folvite 1 mg Tablet] 1 mg PO DAILY #30 tablet Furosemide [Lasix 20 mg Tablet] 20 mg PO DAILY #30 tablet Thiamine HCl [Thiamine 100 mg Tablet] 100 mg PO DAILY #30 tablet Home Medications: Cetirizine HCl [Zyrtec 10 mg Tablet] 1 tab PO DAILY 01/09/14 Magnesium Oxide 400 mg PO DAILY 12/14/19 Ondansetron [Zofran Odt 4 mg Tablet] 1 - 2 tab PO Q4HP PRN 12/14/19 Albuterol Sulfate [Proair HFA Inhalation Aerosol 8.5 gm MDI] 2 puff IH PRN PRN 12/21/19 Montelukast Sodium [Singulair 10 mg Tablet] 10 mg PO DAILY 12/21/19 Tiotropium [place] [Spiriva Handihaler 5 Cap/Kit (18 Mcg/Cap)] 2 puff IH DAILY 12/21/19 Cyanocobalamin (Vitamin B-12) [Vitamin B-12 1000 mcg Tablet] 1 tab PO DAILY 04/28/20 Mycophenolate Mofetil 1,000 mg PO BID 04/28/20 Acetaminophen [Tylenol 325 mg Tablet] 975 mg PO Q6HP PRN tablet 05/09/20 Carvedilol [Coreg 6.25 mg Tablet] 6.25 mg PO Q12 #60 tablet 05/09/20 Folic Acid [Folvite 1 mg Tablet] 1 mg PO DAILY #30 tablet 05/09/20 Furosemide [Lasix 20 mg Tablet] 20 mg PO DAILY #30 tablet 05/09/20 Losartan Potassium [Cozaar 50 mg Tablet] 50 mg PO DAILY #30 tablet 05/09/20 Spironolactone [Aldactone 25 mg Tablet] 25 mg PO DAILY #30 tablet 05/09/20 Thiamine HCl [Thiamine 100 mg Tablet] 100 mg PO DAILY #30 tablet 05/09/20 History of Present Illiness History of Present Illness: HPI as per initial provider: STELLA FERRARI is a 64 year old male had a left knee arthroplasty for primary osteoarthritis end-stage. Medical consult was called for management of uncontrolled hypertension. 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 Hospital Course Hospital Course: Patient was admitted to the hospital and underwent elective knee replacement. However patient is postop course was very complicated and patient had to transfer to the ICU twice. Refer to progress notes for details. Patient first of all became highly hyponatremic. He went as low as 118. It was thought to be secondary to poor caloric intake and from his chronic alcoholism. He was initially sent to the ICU for hypertonic saline administration. He began to go into alcohol withdrawal in the ICU and patient was started on phenobarbital with suspicion for delirium tremens. Patient was later sent back to the medical floor once his sodium level improved. At this time patient was noted to be very encephalopathic and borderline obtunded. He was thought to be secondary to lasting effect of phenobarbital. He later on became very tachycardic and was sent back to the ICU. In the ICU, he was started on treatment for aspiration pneumonia with IV antibiotics which he completed treatment of. He was also noted to be dysarthric and significantly physically deconditioned. Also his oxygen level improved was later transferred to the floor. He completed treatment with oral antibiotics for his aspiration pneumonia. Patient was also treated for CHF suspected to be acute on chronic. I noted that his echocardiogram showed an EF of 30 to 35%. I had a suspect it is secondary to chronic heavy alcohol consumption and likely alcoholic cardiomyopathy. I have started patient on appropriate medications for his systolic heart failure including Lasix, spironolactone, Coreg and losartan which should also help with his hypertension. I initially had to give him some IV diuresis because he was hypoxic with notable pulmonary edema. With IV diuresis, patient has been able to be taken off oxygen and has saturated in the high 90s to 100% on room air. Patient had an MRI of the brain to evaluate his dysarthria which was essentially unremarkable. His dysarthria and will generalized weakness have remarkably improved in the past few days as his phenobarbital has worn off. Patient has received appropriate counseling and appropriate physical therapy and today he is fit for discharge home with home PT and OT. Patient is set up for outpatient cardiology follow-up for evaluation for his new onset CHF. Physical Exam Vital Signs: Temp Pulse Resp BP Pulse Ox 98.0 F 92 18 147/76 H 98 05/09/20 11:08 05/09/20 11:08 05/09/20 11:08 05/09/20 11:08 05/09/20 11:08 Pulse Oximeter Ambulatory Start: 05/07/20 08:10 Freq: DARRELL Status: Complete Protocol: Document 05/07/20 08:10 [facility] (Rec: 05/07/20 09:41 [facility] [id number]) Exercise Oximetry Treatment Ambulating SpO2 Charge Now Yes Oxygen Delivery Method Nasal Cannula Oxygen Flow Rate (L/min) 0.5 Recovery O2 Saturation by Pulse Oximetry 94 Pulse Rate 105 Respiratory Rate 18 Exercise O2 Saturation by Pulse Oximetry 94 Pulse Rate 105 Respiratory Rate 18 Resting O2 Saturation by Pulse Oximetry 95 Pulse Rate 92 Respiratory Rate 18 Ambulation Distance (ft) 4 Exercise Tolerance Fair Additional RT Notes Other Patient was on .5lpm NC and 02 saturation was 95%. Patient walked 4 feet with 02 saturation remaining @ 95%. Patient's oxygen was removed and on RA with resting 02 saturation 94%/HR105. Patient again was walked 4feet back to bed with 02 saturation noted to decrease 59 87%/HR 105. Patient was placed back on NC .5lpm at this time. Intake & Output 05/08/20 05/09/20 05/10/20 06:59 06:59 06:59 Intake Total 1250 1740 360 Output Total 1750 1875 250 Balance -500 -135 110 Weight 94.8 kg 94.8 kg General appearance: PRESENT: no acute distress, cooperative Neck exam: ABSENT: JVD Respiratory exam: PRESENT: symmetrical, unlabored. ABSENT: accessory muscle use, retraction, tachypnea Musculoskeletal exam: PRESENT: ambulatory Neurological exam: PRESENT: alert, awake, oriented to person, oriented to place, oriented to time Results Laboratory Results: WBC 9.8 10^3/uL (4.0-10.5) 05/05/20 05:00 RBC 2.67 10^6/uL (4.35-5.55) L 05/05/20 05:00 Hgb 8.9 g/dL (13.5-17.0) L 05/05/20 05:00 Hct 26.3 % (37.9-51.0) L 05/05/20 05:00 MCV 98 fl (80-97) H 05/05/20 05:00 MCH 33.4 pg (27.0-33.4) 05/05/20 05:00 MCHC 34.0 g/dL (32.0-36.0) 05/05/20 05:00 RDW 15.4 % (11.5-14.0) H 05/05/20 05:00 Plt Count 644 10^3/uL (150-450) H 05/05/20 05:00 Lymph % (Auto) Not Reportable 05/01/20 05:07 [place] % (Auto) Not Reportable 05/01/20 05:07 Eos % (Auto) Not Reportable 05/01/20 05:07 Baso % (Auto) Not Reportable 05/01/20 05:07 Absolute Neuts (auto) Not Reportable 05/01/20 05:07 Absolute Lymphs (auto) Not Reportable 05/01/20 05:07 Absolute Monos (auto) Not Reportable 05/01/20 05:07 Absolute Eos (auto) Not Reportable 05/01/20 05:07 Absolute Basos (auto) Not Reportable 05/01/20 05:07 Total Counted 100 05/01/20 05:07 Seg Neutrophils % Not Reportable 05/01/20 05:07 Seg Neuts % (Manual) 88 % (42-78) H 05/01/20 05:07 Band Neutrophils % 3 % (3-5) 04/29/20 06:10 Lymphocytes % (Manual) 7 % (13-45) L 05/01/20 05:07 Monocytes % (Manual) 5 % (3-13) 05/01/20 05:07 Eosinophils % (Manual) 0 % (0-6) 05/01/20 05:07 Basophils % (Manual) 0 % (0-2) 05/01/20 05:07 Metamyelocytes % 1 % (0-1) 04/28/20 06:11 Abs Neuts (Manual) 9.9 10^3/uL (1.7-8.2) H 05/01/20 05:07 Abs Lymphs (Manual) 0.8 10^3/uL (0.5-4.7) 05/01/20 05:07 Abs Monocytes (Manual) 0.6 10^3/uL (0.1-1.4) 05/01/20 05:07 Absolute Eos (Manual) 0.0 10^3/uL (0.0-0.6) 05/01/20 05:07 Abs Basophils (Manual) 0.0 10^3/uL (0.0-0.2) 05/01/20 05:07 Nucleated RBCs 1 /100 WBC (0) 05/01/20 05:07 Toxic Granulation 1+ 04/30/20 05:43 Platelet Comment ADEQUATE 05/01/20 05:07 Polychromasia 1+ 04/29/20 06:10 Poikilocytosis SLIGHT 04/30/20 05:43 Anisocytosis SLIGHT 04/30/20 05:43 Macrocytosis 1+ 04/29/20 06:10 Ovalocytes SLIGHT 04/25/20 13:20 Nikunj Cells SLIGHT 04/30/20 05:43 Schistocytes SLIGHT 04/30/20 05:43 RBC Morph Comment NORMO-CYTIC/CHROMIC 05/01/20 05:07 Carbonic Acid 0.84 mmol/L (1.05-1.35) L 05/01/20 05:59 HCO3/H2CO3 Ratio 23:1 05/01/20 05:59 ABG pH 7.47 (7.35-7.45) H 05/01/20 05:59 ABG pCO2 27.9 mmHg (35-45) L 05/01/20 05:59 ABG pO2 78.4 mmHg (80-100) L 05/01/20 05:59 ABG HCO3 19.8 mmol/L (20-24) L 05/01/20 05:59 ABG Total CO2 20.7 mmol/L (23-27) L 05/01/20 05:59 ABG O2 Saturation 96.5 % (94-98) 05/01/20 05:59 ABG Base Excess -2.9 mmol/L 05/01/20 05:59 FiO2 1.5L 05/01/20 05:59 Sodium 132.1 mmol/L (137-145) L 05/09/20 05:18 Potassium 4.1 mmol/L (3.6-5.0) 05/09/20 05:18 Chloride 94 mmol/L (98-107) L 05/09/20 05:18 Carbon Dioxide 31 mmol/L (22-30) H 05/09/20 05:18 Anion Gap 7 (5-19) 05/09/20 05:18 BUN 14 mg/dL (7-20) 05/09/20 05:18 Creatinine 1.10 mg/dL (0.52-1.25) 05/09/20 05:18 Est GFR ( Amer) > 60 (>60) 05/09/20 05:18 Est GFR (Non-Af Amer) Cancelled 04/25/20 13:20 Est GFR (MDRD) Non-Af > 60 (>60) 05/09/20 05:18 Glucose 98 mg/dL (75-110) 05/09/20 05:18 POC Glucose 158 mg/dL (70-110) H 05/03/20 05:27 Serum Osmolality 251 mOsm/kg (275-301) L 04/26/20 05:30 Calcium 9.2 mg/dL (8.4-10.2) 05/09/20 05:18 Phosphorus 4.0 mg/dL (2.5-4.5) 04/26/20 21:16 Magnesium 1.7 mg/dL (1.6-2.3) 05/07/20 04:19 Total Bilirubin 0.4 mg/dL (0.2-1.3) 05/01/20 05:07 Direct Bilirubin 0.1 mg/dL (0.0-0.4) 05/01/20 05:07 Neonat Total Bilirubin Not Reportable 05/01/20 05:07 Neonat Direct Bilirubin Not Reportable 05/01/20 05:07 Neonat Indirect Bili Not Reportable 05/01/20 05:07 AST 32 U/L (17-59) 05/01/20 05:07 ALT 16 U/L (<50) 05/01/20 05:07 Alkaline Phosphatase 112 U/L (38-126) 05/01/20 05:07 Ammonia 15.6 umol/L (9-33) 04/29/20 09:38 Total Protein 5.1 g/dL (6.3-8.2) L 05/01/20 05:07 Albumin 2.4 g/dL (3.5-5.0) L 05/01/20 05:07 EGFR Cancelled 04/25/20 13:20 Vitamin B12 > 1000.0 pg/mL (239-931) H 05/06/20 05:14 Urine Osmolality 257 mOsm/kg (300-900) L 04/26/20 08:30 Urine Sodium 21 mmol/L (30-90) L 04/26/20 08:30 Urine Potassium 30.3 mmol/L (17-99) 04/26/20 08:30 Time Trough Drawn 1350 05/02/20 13:50 Vancomycin Trough 24.1 ug/mL (5.0-20.0) H 05/02/20 13:50 Phenobarbital 32 ug/mL (15-40) 04/30/20 09:30 COVID-19 Source NASOPHARYNGEAL 04/23/20 10:40 COVID-19 (KRISTY) NOT DETECTED 04/23/20 10:40 Impressions: Knee X-Ray 04/25/20 00:00 IMPRESSION: Status post total knee arthroplasty. Intraarticular and subc utaneous gas are not an unexpected finding in the immediate postoperative setting. No evidence of osseous injury. Chest CT 04/28/20 00:00 IMPRESSION: There is interlobular septal thickening with bibasilar airspace opacities. This likely reflects some edema. There may also be superimposed infection. The main pulmonary artery is enlarged, which can be seen with pulmonary artery hypertension. Chest X-Ray 04/28/20 00:00 IMPRESSION: Patchy airspace opacities in the lung bases with small left-sided pleural effusion. This may represent an infectious process such as pneumonia or viral pneumonia. Early pulmonary edema could have a similar appearance as well. Clinical correlation is required. Chest X-Ray 04/30/20 00:00 IMPRESSION: Fluid overload or congestive failure, more prominent than on plain films from 04/28/[address] 04/30/20 00:00 IMPRESSION: NORMAL BRAIN CT WITHOUT CONTRAST. EVIDENCE OF ACUTE STROKE: NO. KUB X-Ray 05/01/20 07:11 IMPRESSION: Nasoenteric tube tip overlies gastric body. Left lower lobe consolidation with small bilateral effusions. Head MRI 05/05/20 00:00 IMPRESSION: Negative for acute or sub-acute infarction. EVIDENCE OF ACUTE STROKE: NO. Chest X-Ray 05/07/20 07:00 IMPRESSION: Improved aeration with residual small effusions. Plan Time Spent: Greater than 30 Minutes Stroke Is this a Stroke Patient?: No Acute Heart Failure - Is this a Heart Failure Patient?: Yes Documentation of LVEF assessment?: Yes LVEF: LVEF Less Than or Equal to 35% Anticoagulant Therapy: N/A Discharged on Evidence-Based Beta Blockers: Yes Discharged on ARNI?: No-Document Contraindications Reason(s) not discharged on ARNI: Not previously tolerating ACEI or ARB Discharged on ARB?: Yes Discharged on ACEI?: N/A Discharged on ARB For LVEF <35%, discharged on Aldosterone Antagonist?: Yes
[2020-05-09 15:04] VITALS: BP 130/68
== END 2020-05-09 17:20 | disposition home health service (06) | DRG 981 ==
LOC: OROUT 05:30 → 4S 11:48 → ICU 04-26 08:48 → OROUT 04-28 11:06 → 4S 04-28 11:07 → 3W 04-28 15:14 → ICU 05-01 06:10 → 4W 05-03 22:04 → 4S 05-07 17:23
PROVIDERS: ADMIT Emergency Medicine; ATTEND Internal Medicine
PROC: 0SRD0J9 Replacement of Left Knee Joint with Synthetic Substitute, Cemented, Open Approach (ICD-10-PCS; principal; 2020-04-25 07:30)
PROC: HZ2ZZZZ Detoxification Services for Substance Abuse Treatment (ICD-10-PCS; 2020-04-28)
DX: E87.1 Hypo-osmolality and hyponatremia (principal); J69.0 Pneumonitis due to inhalation of food and vomit; I50.23 Acute on chronic systolic (congestive) heart failure; G93.41 Metabolic encephalopathy; E46 Unspecified protein-calorie malnutrition; I42.6 Alcoholic cardiomyopathy; F10.231 Alcohol dependence with withdrawal delirium; M17.12 Unilateral primary osteoarthritis, left knee; Z78.1 Physical restraint status; I11.0 Hypertensive heart disease with heart failure; R09.02 Hypoxemia; R47.1 Dysarthria and anarthria; E88.09 Other disorders of plasma-protein metabolism, not elsewhere classified; N05.9 Unspecified nephritic syndrome with unspecified morphologic changes; J44.9 Chronic obstructive pulmonary disease, unspecified; Z79.899 Other long term (current) drug therapy; Z90.49 Acquired absence of other specified parts of digestive tract; Z87.891 Personal history of nicotine dependence; Z88.8 Allergy status to other drugs, medicaments and biological substances; Z91.048 Other nonmedicinal substance allergy status
CPT/HCPCS: 01402; 36415; 36600; 70450; 70551; 71045; 71046; 71250; 74018; 80048; 80053; 80184; 80202; 82140; 82607; 82803; 82962; 83735; 83930; 83935; 84100; 84133; 84300; 85025; 85027; 87040; 87635; 93005; 93010; 93306; 94640; 94761; 94799; 99221; 99222; 99291; C1713; C1776; C9113; C9803; J0131; J0171; J0282; J0330; J0360; J0690; J0696; J1100; J1630; J1644; J1650; J1741; J1885; J1940; J2060; J2250; J2270; J2370; J2405; J2560; J2704; J3010; J3360; J3370; J3411; J3475; J3480; J3490; J7030; J7042; J7050; J7060; J7120